=== PATIENT | male | born 1985 | race Caucasian/White ===

== ENCOUNTER 2016-05-17 23:22 | Inpatient (IN) | payer MEDICAID ==
[~2016-05-17] VITALS: Ht 177.8 cm; Wt 78.9 kg
[2016-05-18 00:20] LABS: Basophils # (auto) 0.1 uL; Basophils % (auto) 0.9 % (0.0-2.0); DEFINITIVE VIEW TRANSMISSION; Eosinophils # (auto) 0.3 uL; Eosinophils % (auto) 3.3 % (0.0-7.0); Hematocrit 25.1 % (41.0-53.0); Hemoglobin 8.1 g/dL (13.5-17.5); Lymphocytes # (auto) 1.7 uL; Lymphocytes % (auto) 16.5 % (10.0-50.0); Mean Corpuscular Hemoglobin 27.8 pg (28.0-32.0); Mean Corpuscular Hgb Conc. 32.4 g/dL (32.0-36.0); Mean Corpuscular Volume 85.9 fL (80.0-100.0); Mean Platelet Volume 7.7 fL (7.4-10.4); Monocytes # (auto) 1.5 uL; Monocytes % (auto) 14.2 % (0.0-12.0); Neutrophils # (auto) 6.6 uL; Neutrophils % (auto) 65.1 % (37.0-80.0); Platelet Count (auto) 424 10^3/uL (140-450); Red Cell Distribution Width 15.3 % (11.6-16.0); White Blood Cell 10.2 10^3/uL (4.4-10.8)
[2016-05-18 00:39] LABS: Albumin 2.4 g/dL (3.4-5.0); Calcium 7.3 mg/dL (8.5-10.1)
[2016-05-18] MEDS ORDERED: InsuLIN REG 1unit/0.01ml Soln (100units/ml) ONE ×2 (00:41→00:55)
[2016-05-18 00:43] LABS: Potassium 8.7 mmol/L (3.5-5.1)
[2016-05-18] MEDS ORDERED: CALCIUM GLUC 4.65 MEQ/10ML 4.65 MEQ in SODIUM CHL 0.9% 50 ML IV ONE ×3 (00:45→18:45)
[2016-05-18] MEDS ORDERED: SODIUM POLYSTYRENE SULF 15GM/60ML SUSP PR ONE (00:45)
[2016-05-18] MEDS ORDERED: SODIUM BICARBONATE 8.4% INJ 50ML SYRINGE IV ONE (00:45)
[2016-05-18] MEDS ORDERED: ALBUTEROL SULF 2.5 MG/0.5ML(0.5%) NEB SOLN HHN ONE (00:45)
[2016-05-18] MEDS ORDERED: InsuLIN REG 1unit/0.01ml Soln (100units/ml) IV ONE ×2 (00:45→18:45)
[2016-05-18] MEDS ORDERED: DEXTROSE (50%) 50ML SYRG IV ONE ×2 (00:45→18:30)
[2016-05-18 00:46] LABS: BUN/Creatinine Ratio 6.3; Bilirubin, Total 0.3 mg/dL (0.2-1.0)
[2016-05-18 00:46] LABS: INR 1.11 (0.9-1.15); Partial Thromboplastin Time 29.4 sec (22.64-33.71); Prothrombin Time 11.4 sec (9.37-12.3)
[2016-05-18 00:47] LABS: Temperature: 21.6 C (20.0-25.0)
[2016-05-18] MEDS ORDERED: ALBUTEROL SULF 2.5 MG/0.5ML(0.5%) NEB SOLN ONE (00:47)
[2016-05-18] MEDS ORDERED: CALCIUM GLUC 4.65 MEQ/10ML IV ONE (00:47)
[2016-05-18] MEDS ORDERED: SODIUM BICARBONATE 8.4 % INJ 50ML VIAL IV ONE ×4 (00:47→18:45)
[2016-05-18] MEDS ORDERED: DEXTROSE 50% SYRINGE 50 ML IV ONE (00:48)
[2016-05-18] MEDS ORDERED: SODIUM POLYSTYRENE SULF 15GM/60ML SUSP ONE (00:54)
[2016-05-18 01:44] LABS: Urine Bilirubin Negative (Negative); Urine Blood TRACE /uL (Negative); Urine Color Yellow (Yellow); Urine Glucose 2+ mg/dL (Normal); Urine Ketone Negative (Negative); Urine Nitrite Negative (Negative); Urine RBC <1 /hpf (0 - 3); Urine Urobilinogen Normal (Negative); Urine pH 7.5 (5.0-8.0)
[2016-05-18] MEDS ORDERED: ACETAMINOPHEN 325 MG TAB PO PRN (02:30)
[2016-05-18] MEDS ORDERED: NITROGLYCERIN 0.4 MG SL TAB SL PRN (02:30)
[2016-05-18] MEDS ORDERED: LORazepam 2MG/ML-1ML VIAL IV PRN ×2 (02:30→19:15)
[2016-05-18] MEDS ORDERED: ONDANSETRON HCL 4 MG/2 ML VIAL IV PRN (02:30)
[2016-05-18] MEDS ORDERED: DEXTROSE (50%) 50ML SYRG IV PRN (02:30)
[2016-05-18] MEDS ORDERED: METOPROLOL TARTRATE 50 MG TAB PO ONE (02:30)
[2016-05-18] MEDS ORDERED: HYDROcodone-ACET 5/325MG TAB PO PRN (02:30)
[2016-05-18] MEDS ORDERED: MORPHINE SULF INJ 2 MG/ML SYRINGE 1ML IV PRN (02:30)
[2016-05-18] MEDS ORDERED: ALBUTEROL SULF 2.5 MG/0.5ML(0.5%) NEB SOLN NEB ONE (03:00)
[2016-05-18 04:00] VITALS: BP 170/107
[2016-05-18 04:29] LABS: BUN/Creatinine Ratio 6.4; Calcium 7.8 mg/dL (8.5-10.1)
[2016-05-18 04:38] LABS: Potassium 6.4 mmol/L (3.5-5.1)
[2016-05-18] MEDS: hydrALAZINE HCL 25 MG TAB PO SCH ×3 (06:00→23:41)
[2016-05-18] MEDS: ACCU-CHEK COMFORT CURVE STRIP VI SCH ×4 (06:33→23:50)
[2016-05-18] MEDS: InsuLIN REG 1unit/0.01ml Soln (100units/ml) SC SCH ×4 (06:34→23:50)
[2016-05-18] MEDS ORDERED: HYDR-2651 PO (06:55)
[2016-05-18] MEDS ORDERED: NEPVITT PO (06:55)
[2016-05-18] MEDS ORDERED: NIFE60TA59 PO (06:55)
[2016-05-18] MEDS ORDERED: FERR325T PO (06:55)
[2016-05-18] MEDS ORDERED: LEVE500T22 PO (06:55)
[2016-05-18] MEDS ORDERED: METO25TA5 PO (06:55)
[2016-05-18] MEDS ORDERED: QUET100T46 PO (06:55)
[2016-05-18] MEDS ORDERED: FAMOTIDINE 20 MG TAB PO SCH (10:00)
[2016-05-18] MEDS ORDERED: LEVETIRACETAM 500 MG TAB PO SCH (10:00)
[2016-05-18] MEDS: ENOXAPARIN SOD 30 MG/0.3 ML SYRINGE SC SCH (10:00)
[2016-05-18] MEDS: B-COMPLEX W/ C & FOLIC ACID(NEPHROVITE TAB) PO SCH (10:12)
[2016-05-18] MEDS: FAMOTIDINE 20 MG TAB PO SCH (10:12)
[2016-05-18] MEDS: METOPROLOL TARTRATE 50 MG TAB PO SCH ×2 (10:13→22:27)
[2016-05-18] MEDS: NIFEdipine ER 30 MG TAB PO SCH ×2 (10:13→22:28)
[2016-05-18] MEDS ORDERED: EPOETIN ALFA 10,000 UNIT/1 ML VIAL IV ONE (15:45)
[2016-05-18] MEDS ORDERED: SODIUM CHL 0.9% 1000 ML BAG XX ONE (15:45)
[2016-05-18 16:56] LABS: BUN/Creatinine Ratio 6.5; Calcium 7.5 mg/dL (8.5-10.1)
[2016-05-18 17:00] LABS: Potassium 6.9 mmol/L (3.5-5.1)
[2016-05-18] MEDS ORDERED: SODIUM POLYSTYRENE SULF 15GM/60ML SUSP PO SCH (18:45)
[2016-05-18 20:00] VITALS: BP 155/92
[2016-05-18] MEDS: SODIUM POLYSTYRENE SULF 15GM/60ML SUSP PO SCH ×3 (20:07→23:53)
[2016-05-18] MEDS ORDERED: QUEtiapine FUMARATE 100 MG TAB PO SCH (22:00)
[2016-05-18] MEDS ORDERED: OXcarbazepine 300 MG TAB PO SCH (22:00)
[2016-05-18] MEDS: QUEtiapine FUMARATE 100 MG TAB PO SCH (23:40)
[2016-05-19] VITALS: BP 165/97
[2016-05-19] MEDS ORDERED: ALBUTEROL SULF 2.5 MG/0.5ML(0.5%) NEB SOLN NEB SCH (02:00)
[2016-05-19 03:54] VITALS: BP 143/89
[2016-05-19] MEDS: SODIUM POLYSTYRENE SULF 15GM/60ML SUSP PO SCH ×2 (04:00→06:45)
[2016-05-19] MEDS: InsuLIN REG 1unit/0.01ml Soln (100units/ml) SC SCH ×3 (06:00→17:39)
[2016-05-19] MEDS: ACCU-CHEK COMFORT CURVE STRIP VI SCH ×3 (06:00→17:39)
[2016-05-19] MEDS: hydrALAZINE HCL 25 MG TAB PO SCH ×3 (06:57→21:49)
[2016-05-19 08:00] VITALS: BP 145/90
[2016-05-19] MEDS: B-COMPLEX W/ C & FOLIC ACID(NEPHROVITE TAB) PO SCH (10:49)
[2016-05-19] MEDS: FAMOTIDINE 20 MG TAB PO SCH (10:49)
[2016-05-19] MEDS: METOPROLOL TARTRATE 50 MG TAB PO SCH ×2 (10:49→21:48)
[2016-05-19] MEDS: NIFEdipine ER 30 MG TAB PO SCH ×2 (10:51→21:48)
[2016-05-19] MEDS: ENOXAPARIN SOD 30 MG/0.3 ML SYRINGE SC SCH (10:53)
[2016-05-19 11:54] VITALS: BP 147/83
[2016-05-19 15:49] VITALS: BP 138/86
[2016-05-19 20:00] VITALS: BP 152/86
[2016-05-19 20:07] LABS: BUN/Creatinine Ratio 6.7; Calcium 7.5 mg/dL (8.5-10.1)
[2016-05-19 20:28] LABS: Potassium 7.4 mmol/L (3.5-5.1)
[2016-05-19] MEDS: QUEtiapine FUMARATE 100 MG TAB PO SCH (21:48)
[2016-05-20 02:00] VITALS: BP 150/80
[2016-05-20 04:00] VITALS: BP 137/80
[2016-05-20] MEDS: InsuLIN REG 1unit/0.01ml Soln (100units/ml) SC SCH ×4 (06:00→17:55)
[2016-05-20] MEDS: ACCU-CHEK COMFORT CURVE STRIP VI SCH ×4 (06:00→17:54)
[2016-05-20] MEDS: hydrALAZINE HCL 25 MG TAB PO SCH ×3 (07:09→22:56)
[2016-05-20 08:00] VITALS: BP 131/78
[2016-05-20] MEDS: ENOXAPARIN SOD 30 MG/0.3 ML SYRINGE SC SCH (10:00)
[2016-05-20] MEDS: METOPROLOL TARTRATE 50 MG TAB PO SCH ×2 (10:08→22:56)
[2016-05-20] MEDS: B-COMPLEX W/ C & FOLIC ACID(NEPHROVITE TAB) PO SCH (10:08)
[2016-05-20] MEDS: FAMOTIDINE 20 MG TAB PO SCH (10:08)
[2016-05-20] MEDS: NIFEdipine ER 30 MG TAB PO SCH ×2 (10:09→22:58)
[2016-05-20 12:00] VITALS: BP 155/82
[2016-05-20] MEDS ORDERED: SODIUM POLYSTYRENE SULF 15GM/60ML SUSP PO ONE (13:00)
[2016-05-20] MEDS ORDERED: ALBUTEROL SULF 2.5 MG/0.5ML(0.5%) NEB SOLN NEB ONE (13:00)
[2016-05-20 16:00] VITALS: BP 155/96
[2016-05-20 20:00] VITALS: BP 148/90
[2016-05-20] MEDS: QUEtiapine FUMARATE 100 MG TAB PO SCH (22:57)
[2016-05-21] VITALS: BP 125/70
[2016-05-21 04:00] VITALS: BP 131/78
[2016-05-21] MEDS: ACCU-CHEK COMFORT CURVE STRIP VI SCH ×4 (06:00→17:54)
[2016-05-21] MEDS: InsuLIN REG 1unit/0.01ml Soln (100units/ml) SC SCH ×4 (06:00→17:54)
[2016-05-21] MEDS: hydrALAZINE HCL 25 MG TAB PO SCH ×3 (06:13→22:49)
[2016-05-21 08:00] VITALS: BP 127/71
[2016-05-21] MEDS: ENOXAPARIN SOD 30 MG/0.3 ML SYRINGE SC SCH (10:00)
[2016-05-21] MEDS: METOPROLOL TARTRATE 50 MG TAB PO SCH ×2 (10:09→22:49)
[2016-05-21] MEDS: FAMOTIDINE 20 MG TAB PO SCH (10:09)
[2016-05-21] MEDS: B-COMPLEX W/ C & FOLIC ACID(NEPHROVITE TAB) PO SCH (10:09)
[2016-05-21] MEDS: NIFEdipine ER 30 MG TAB PO SCH ×2 (10:10→22:50)
[2016-05-21 12:00] VITALS: BP 138/79
[2016-05-21 12:15] LABS: Basophils # (auto) 0.1 uL; Eosinophils # (auto) 0.2 uL; Eosinophils % (auto) 2.4 % (0.0-7.0); Hematocrit 26.4 % (41.0-53.0); Hemoglobin 8.8 g/dL (13.5-17.5); Lymphocytes # (auto) 2.1 uL; Lymphocytes % (auto) 29.8 % (10.0-50.0); Mean Corpuscular Hemoglobin 28.2 pg (28.0-32.0); Mean Corpuscular Hgb Conc. 33.2 g/dL (32.0-36.0); Mean Corpuscular Volume 85.1 fL (80.0-100.0); Mean Platelet Volume 7.7 fL (7.4-10.4); Monocytes # (auto) 0.8 uL; Monocytes % (auto) 11.1 % (0.0-12.0); Neutrophils # (auto) 3.9 uL; Neutrophils % (auto) 55.7 % (37.0-80.0); Platelet Count (auto) 348 10^3/uL (140-450); Red Cell Distribution Width 16.4 % (11.6-16.0); White Blood Cell 7.1 10^3/uL (4.4-10.8)
[2016-05-21 12:24] LABS: Albumin 2.1 g/dL (3.4-5.0); Bilirubin, Total 0.3 mg/dL (0.2-1.0); Total Protein 6.7 g/dL (6.4-8.2)
[2016-05-21 12:32] LABS: Potassium 6.5 mmol/L (3.5-5.1)
[2016-05-21 12:59] LABS: BUN/Creatinine Ratio 6.8
[2016-05-21 16:00] VITALS: BP 116/85
[2016-05-21 19:47] VITALS: BP 142/74
[2016-05-21] MEDS: QUEtiapine FUMARATE 100 MG TAB PO SCH (22:48)
[2016-05-22] VITALS (7 sets, daily range): BP systolic 119–137; BP diastolic 65–79
[2016-05-22 05:02] LABS: Basophils # (auto) 0 uL; Basophils % (auto) 0.7 % (0.0-2.0); DEFINITIVE VIEW TRANSMISSION; Eosinophils # (auto) 0.1 uL; Eosinophils % (auto) 1.5 % (0.0-7.0); Hematocrit 24.9 % (41.0-53.0); Hemoglobin 8.2 g/dL (13.5-17.5); Lymphocytes # (auto) 1.6 uL; Lymphocytes % (auto) 27.2 % (10.0-50.0); Mean Corpuscular Hemoglobin 28.2 pg (28.0-32.0); Mean Corpuscular Volume 85.5 fL (80.0-100.0); Monocytes # (auto) 0.9 uL; Monocytes % (auto) 15.1 % (0.0-12.0); Neutrophils # (auto) 3.3 uL; Neutrophils % (auto) 55.5 % (37.0-80.0); Platelet Count (auto) 317 10^3/uL (140-450); White Blood Cell 5.9 10^3/uL (4.4-10.8)
[2016-05-22 05:17] LABS: Calcium 7.1 mg/dL (8.5-10.1); Potassium 5.2 mmol/L (3.5-5.1)
[2016-05-22 05:25] LABS: Bilirubin, Total 0.2 mg/dL (0.2-1.0); Total Protein 6.3 g/dL (6.4-8.2)
[2016-05-22] MEDS: InsuLIN REG 1unit/0.01ml Soln (100units/ml) SC SCH ×3 (06:00→12:00)
[2016-05-22] MEDS: ACCU-CHEK COMFORT CURVE STRIP VI SCH ×3 (06:00→12:00)
[2016-05-22] MEDS: hydrALAZINE HCL 25 MG TAB PO SCH ×3 (06:59→22:48)
[2016-05-22] MEDS: ENOXAPARIN SOD 30 MG/0.3 ML SYRINGE SC SCH (10:00)
[2016-05-22] MEDS: METOPROLOL TARTRATE 50 MG TAB PO SCH ×2 (10:06→22:48)
[2016-05-22] MEDS: FAMOTIDINE 20 MG TAB PO SCH (10:06)
[2016-05-22] MEDS: B-COMPLEX W/ C & FOLIC ACID(NEPHROVITE TAB) PO SCH (10:06)
[2016-05-22] MEDS: NIFEdipine ER 30 MG TAB PO SCH ×2 (10:07→22:48)
[2016-05-22] MEDS: BOOST PLUS 8 ounce PO SCH ×2 (12:00→18:00)
[2016-05-22] MEDS: QUEtiapine FUMARATE 100 MG TAB PO SCH (22:49)
[2016-05-23] VITALS: BP 125/69
[2016-05-23] MEDS: hydrALAZINE HCL 25 MG TAB PO SCH ×3 (06:00→21:58)
[2016-05-23 06:22] LABS: Basophils # (auto) 0.1 uL; Basophils % (auto) 0.8 % (0.0-2.0); DEFINITIVE VIEW TRANSMISSION; Eosinophils # (auto) 0.2 uL; Eosinophils % (auto) 3.4 % (0.0-7.0); Hematocrit 25.5 % (41.0-53.0); Hemoglobin 8.2 g/dL (13.5-17.5); Lymphocytes # (auto) 2.5 uL; Lymphocytes % (auto) 36.3 % (10.0-50.0); Mean Corpuscular Hemoglobin 27.7 pg (28.0-32.0); Mean Corpuscular Hgb Conc. 32.2 g/dL (32.0-36.0); Mean Corpuscular Volume 86.1 fL (80.0-100.0); Mean Platelet Volume 8.2 fL (7.4-10.4); Monocytes % (auto) 14.4 % (0.0-12.0); Neutrophils # (auto) 3.1 uL; Neutrophils % (auto) 45.1 % (37.0-80.0); Platelet Count (auto) 259 10^3/uL (140-450); Red Cell Distribution Width 15.5 % (11.6-16.0); White Blood Cell 6.8 10^3/uL (4.4-10.8)
[2016-05-23 07:49] LABS: Albumin 2.1 g/dL (3.4-5.0); BUN/Creatinine Ratio 6.2; Bilirubin, Total 0.4 mg/dL (0.2-1.0); Total Protein 6.5 g/dL (6.4-8.2)
[2016-05-23] MEDS: BOOST PLUS 8 ounce PO SCH ×3 (07:50→18:00)
[2016-05-23 08:00] VITALS: BP 144/84
[2016-05-23] MEDS: ENOXAPARIN SOD 30 MG/0.3 ML SYRINGE SC SCH (10:00)
[2016-05-23 12:00] VITALS: BP 143/85
[2016-05-23] MEDS ORDERED: EPOETIN ALFA 3,000 UNIT/1 ML VIAL IV ONE ×2 (13:30→14:00)
[2016-05-23] MEDS ORDERED: EPOETIN ALFA 2,000 UNIT/1 ML VIAL IV ONE (14:00)
[2016-05-23 16:00] VITALS: BP 146/107
[2016-05-23] MEDS: METOPROLOL TARTRATE 50 MG TAB PO SCH ×2 (17:35→21:58)
[2016-05-23] MEDS: NIFEdipine ER 30 MG TAB PO SCH ×2 (17:35→21:57)
[2016-05-23] MEDS: FAMOTIDINE 20 MG TAB PO SCH (18:30)
[2016-05-23] MEDS: B-COMPLEX W/ C & FOLIC ACID(NEPHROVITE TAB) PO SCH (18:49)
[2016-05-23 20:00] VITALS: BP 149/92
[2016-05-23 21:40] VITALS: BP 151/104
[2016-05-23] MEDS: QUEtiapine FUMARATE 100 MG TAB PO SCH (21:56)
[2016-05-24 05:00] VITALS: BP 158/86
[2016-05-24] MEDS: hydrALAZINE HCL 25 MG TAB PO SCH ×3 (06:21→22:07)
[2016-05-24 08:00] VITALS: BP 145/86
[2016-05-24] MEDS: BOOST PLUS 8 ounce PO SCH ×3 (08:00→18:02)
[2016-05-24] MEDS: B-COMPLEX W/ C & FOLIC ACID(NEPHROVITE TAB) PO SCH (09:46)
[2016-05-24] MEDS: METOPROLOL TARTRATE 50 MG TAB PO SCH ×2 (09:47→22:07)
[2016-05-24] MEDS: FAMOTIDINE 20 MG TAB PO SCH (09:47)
[2016-05-24] MEDS: NIFEdipine ER 30 MG TAB PO SCH ×2 (09:47→22:06)
[2016-05-24] MEDS: ENOXAPARIN SOD 30 MG/0.3 ML SYRINGE SC SCH (09:48)
[2016-05-24 11:39] LABS: Potassium 4.8 mmol/L (3.5-5.1)
[2016-05-24 11:40] LABS: BUN/Creatinine Ratio 5.1; Calcium 7.7 mg/dL (8.5-10.1)
[2016-05-24 12:30] VITALS: BP 158/93
[2016-05-24 17:00] VITALS: BP 150/88
[2016-05-24 21:49] VITALS: BP 155/90
[2016-05-24] MEDS: QUEtiapine FUMARATE 100 MG TAB PO SCH (22:06)
[2016-05-25 05:22] VITALS: BP 129/78
[2016-05-25] MEDS: hydrALAZINE HCL 25 MG TAB PO SCH ×3 (06:25→21:53)
[2016-05-25] MEDS: BOOST PLUS 8 ounce PO SCH ×3 (08:00→18:18)
[2016-05-25 08:22] VITALS: BP 118/84
[2016-05-25] MEDS: B-COMPLEX W/ C & FOLIC ACID(NEPHROVITE TAB) PO SCH (09:20)
[2016-05-25] MEDS: FAMOTIDINE 20 MG TAB PO SCH (09:20)
[2016-05-25] MEDS: ENOXAPARIN SOD 30 MG/0.3 ML SYRINGE SC SCH (09:21)
[2016-05-25] MEDS: METOPROLOL TARTRATE 50 MG TAB PO SCH ×2 (09:21→21:53)
[2016-05-25] MEDS: NIFEdipine ER 30 MG TAB PO SCH ×2 (09:21→21:52)
[2016-05-25] MEDS ORDERED: EPOETIN ALFA 10,000 UNIT/1 ML VIAL IV ONE (11:30)
[2016-05-25] MEDS ORDERED: HEPARIN SODIUM (PORCINE) 5000 UNITS/ML 1ML VIAL IV ONE (11:30)
[2016-05-25 11:58] VITALS: BP 118/79
[2016-05-25 15:58] VITALS: BP 129/86
[2016-05-25] MEDS: QUEtiapine FUMARATE 100 MG TAB PO SCH (21:53)
[2016-05-25 22:00] VITALS: BP 140/86
[2016-05-26 05:00] VITALS: BP 136/72
[2016-05-26] MEDS: hydrALAZINE HCL 25 MG TAB PO SCH ×3 (06:48→21:36)
[2016-05-26] MEDS: BOOST PLUS 8 ounce PO SCH ×3 (08:00→18:29)
[2016-05-26 09:00] VITALS: BP 127/88
[2016-05-26] MEDS: ENOXAPARIN SOD 30 MG/0.3 ML SYRINGE SC SCH (10:00)
[2016-05-26] MEDS: NIFEdipine ER 30 MG TAB PO SCH ×2 (10:18→21:35)
[2016-05-26] MEDS: METOPROLOL TARTRATE 50 MG TAB PO SCH ×2 (10:19→21:35)
[2016-05-26] MEDS: FAMOTIDINE 20 MG TAB PO SCH (10:19)
[2016-05-26] MEDS: B-COMPLEX W/ C & FOLIC ACID(NEPHROVITE TAB) PO SCH (10:20)
[2016-05-26 11:01] LABS: Hepatitis B Surface Antibody Non Reactive
[2016-05-26 13:00] VITALS: BP 136/92
[2016-05-26 17:00] VITALS: BP 135/92
[2016-05-26] MEDS: QUEtiapine FUMARATE 100 MG TAB PO SCH (21:33)
[2016-05-26 22:00] VITALS: BP 134/90
[2016-05-27 05:30] VITALS: BP 117/81
[2016-05-27] MEDS: hydrALAZINE HCL 25 MG TAB PO SCH ×3 (06:32→21:21)
[2016-05-27] MEDS: BOOST PLUS 8 ounce PO SCH ×3 (08:02→17:44)
[2016-05-27 09:00] VITALS: BP 136/79
[2016-05-27] MEDS ORDERED: SODIUM CHL 0.9% 1000 ML BAG XX ONE (10:00)
[2016-05-27] MEDS ORDERED: EPOETIN ALFA 10,000 UNIT/1 ML VIAL IV ONE (10:00)
[2016-05-27] MEDS: ENOXAPARIN SOD 30 MG/0.3 ML SYRINGE SC SCH ×2 (10:26→10:31)
[2016-05-27] MEDS: B-COMPLEX W/ C & FOLIC ACID(NEPHROVITE TAB) PO SCH (10:26)
[2016-05-27] MEDS: METOPROLOL TARTRATE 50 MG TAB PO SCH ×2 (10:27→21:23)
[2016-05-27] MEDS: NIFEdipine ER 30 MG TAB PO SCH ×2 (10:28→21:24)
[2016-05-27] MEDS: FAMOTIDINE 20 MG TAB PO SCH (10:28)
[2016-05-27 13:19] VITALS: BP 127/74
[2016-05-27 14:01] LABS: BUN/Creatinine Ratio 5.6; Calcium 7.7 mg/dL (8.5-10.1)
[2016-05-27 17:01] VITALS: BP 114/70
[2016-05-27] MEDS: QUEtiapine FUMARATE 100 MG TAB PO SCH (21:22)
[2016-05-27 21:36] VITALS: BP 125/77
[2016-05-28 04:36] VITALS: BP 125/70
[2016-05-28] MEDS: hydrALAZINE HCL 25 MG TAB PO SCH ×3 (06:11→22:08)
[2016-05-28 07:33] VITALS: BP 127/79
[2016-05-28] MEDS: B-COMPLEX W/ C & FOLIC ACID(NEPHROVITE TAB) PO SCH (09:26)
[2016-05-28] MEDS: METOPROLOL TARTRATE 50 MG TAB PO SCH ×2 (09:26→21:42)
[2016-05-28] MEDS: NIFEdipine ER 30 MG TAB PO SCH ×2 (09:27→21:42)
[2016-05-28] MEDS: BOOST PLUS 8 ounce PO SCH ×3 (09:28→17:03)
[2016-05-28] MEDS: ENOXAPARIN SOD 30 MG/0.3 ML SYRINGE SC SCH (09:29)
[2016-05-28] MEDS ORDERED: NITROGLYCERIN 50MG/250ML 250 ML IV ONE (09:31)
[2016-05-28] MEDS: FAMOTIDINE 20 MG TAB PO SCH (09:34)
[2016-05-28 11:36] VITALS: BP 130/88
[2016-05-28 16:04] VITALS: BP 141/84
[2016-05-28 21:41] VITALS: BP 148/96
[2016-05-28] MEDS: QUEtiapine FUMARATE 100 MG TAB PO SCH (21:42)
[2016-05-29 05:01] LABS: Basophils # (auto) 0.1 uL; Basophils % (auto) 0.8 % (0.0-2.0); Eosinophils # (auto) 0.3 uL; Eosinophils % (auto) 3.6 % (0.0-7.0); Lymphocytes # (auto) 3.4 uL; Lymphocytes % (auto) 37.2 % (10.0-50.0); Mean Corpuscular Hemoglobin 28.5 pg (28.0-32.0); Mean Corpuscular Hgb Conc. 33.2 g/dL (32.0-36.0); Mean Corpuscular Volume 85.9 fL (80.0-100.0); Mean Platelet Volume 8.6 fL (7.4-10.4); Monocytes # (auto) 1.1 uL; Monocytes % (auto) 12.2 % (0.0-12.0); Neutrophils # (auto) 4.3 uL; Neutrophils % (auto) 46.2 % (37.0-80.0); Platelet Count (auto) 315 10^3/uL (140-450); Red Cell Distribution Width 15.3 % (11.6-16.0); White Blood Cell 9.3 10^3/uL (4.4-10.8)
[2016-05-29 05:05] VITALS: BP 147/84
[2016-05-29 05:11] LABS: INR 1.06 (0.9-1.15); Prothrombin Time 11.5 sec (9.37-12.3)
[2016-05-29] MEDS: hydrALAZINE HCL 25 MG TAB PO SCH ×3 (05:46→21:53)
[2016-05-29 06:14] LABS: Albumin 2.2 g/dL (3.4-5.0); BUN/Creatinine Ratio 5.2; Bilirubin, Total 0.2 mg/dL (0.2-1.0); Calcium 7.8 mg/dL (8.5-10.1); Magnesium 2.4 mg/dL (1.6-2.6); Total Protein 6.4 g/dL (6.4-8.2)
[2016-05-29] MEDS: BOOST PLUS 8 ounce PO SCH ×3 (07:18→17:10)
[2016-05-29 09:00] VITALS: BP 147/86
[2016-05-29] MEDS: B-COMPLEX W/ C & FOLIC ACID(NEPHROVITE TAB) PO SCH (09:19)
[2016-05-29] MEDS: NIFEdipine ER 30 MG TAB PO SCH ×2 (09:19→22:13)
[2016-05-29] MEDS: FAMOTIDINE 20 MG TAB PO SCH (09:20)
[2016-05-29] MEDS: METOPROLOL TARTRATE 50 MG TAB PO SCH ×2 (09:20→21:54)
[2016-05-29] MEDS: ENOXAPARIN SOD 30 MG/0.3 ML SYRINGE SC SCH (09:20)
[2016-05-29 13:00] VITALS: BP 146/83
[2016-05-29 17:00] VITALS: BP 154/83
[2016-05-29 21:30] VITALS: BP 151/86
[2016-05-29] MEDS: QUEtiapine FUMARATE 100 MG TAB PO SCH (22:14)
[2016-05-30 05:00] VITALS: BP 151/85
[2016-05-30 05:50] LABS: Basophils # (auto) 0.1 uL; Basophils % (auto) 0.7 % (0.0-2.0); DEFINITIVE VIEW TRANSMISSION; Eosinophils # (auto) 0.3 uL; Eosinophils % (auto) 3.1 % (0.0-7.0); Hematocrit 26.3 % (41.0-53.0); Hemoglobin 8.5 g/dL (13.5-17.5); Lymphocytes # (auto) 2.9 uL; Lymphocytes % (auto) 29.3 % (10.0-50.0); Mean Corpuscular Hgb Conc. 32.3 g/dL (32.0-36.0); Mean Corpuscular Volume 86.8 fL (80.0-100.0); Mean Platelet Volume 8.8 fL (7.4-10.4); Monocytes # (auto) 1.5 uL; Monocytes % (auto) 14.5 % (0.0-12.0); Neutrophils # (auto) 5.3 uL; Neutrophils % (auto) 52.4 % (37.0-80.0); Platelet Count (auto) 325 10^3/uL (140-450); White Blood Cell 10.1 10^3/uL (4.4-10.8)
[2016-05-30] MEDS: hydrALAZINE HCL 25 MG TAB PO SCH ×3 (05:58→22:14)
[2016-05-30 06:04] LABS: INR 1.06 (0.9-1.15); Prothrombin Time 11.4 sec (9.37-12.3)
[2016-05-30 06:18] LABS: BUN/Creatinine Ratio 5.6; Calcium 8.2 mg/dL (8.5-10.1); Magnesium 2.6 mg/dL (1.6-2.6)
[2016-05-30 06:22] LABS: Potassium 5.8 mmol/L (3.5-5.1)
[2016-05-30 09:00] VITALS: BP 140/82
[2016-05-30] MEDS: ENOXAPARIN SOD 30 MG/0.3 ML SYRINGE SC SCH (10:00)
[2016-05-30] MEDS: B-COMPLEX W/ C & FOLIC ACID(NEPHROVITE TAB) PO SCH (11:15)
[2016-05-30] MEDS: FAMOTIDINE 20 MG TAB PO SCH (11:15)
[2016-05-30] MEDS: METOPROLOL TARTRATE 50 MG TAB PO SCH ×2 (11:16→22:14)
[2016-05-30] MEDS: NIFEdipine ER 30 MG TAB PO SCH ×2 (11:17→22:15)
[2016-05-30] MEDS: BOOST PLUS 8 ounce PO SCH ×3 (11:21→19:39)
[2016-05-30] MEDS ORDERED: SODIUM CHL 0.9% 1000 ML BAG XX ONE ×2 (12:00→13:15)
[2016-05-30] MEDS ORDERED: EPOETIN ALFA 10,000 UNIT/1 ML VIAL IV ONE ×2 (12:00→13:15)
[2016-05-30 13:00] VITALS: BP 124/90
[2016-05-30 13:06] VITALS: BP 158/78
[2016-05-30 17:00] VITALS: BP 142/84
[2016-05-30 22:00] VITALS: BP 137/77
[2016-05-30] MEDS: QUEtiapine FUMARATE 100 MG TAB PO SCH (22:15)
[2016-05-31 05:00] VITALS: BP 136/66
[2016-05-31] MEDS: hydrALAZINE HCL 25 MG TAB PO SCH ×3 (05:39→21:40)
[2016-05-31 07:23] VITALS: BP 127/72
[2016-05-31] MEDS: ENOXAPARIN SOD 30 MG/0.3 ML SYRINGE SC SCH (10:00)
[2016-05-31] MEDS: B-COMPLEX W/ C & FOLIC ACID(NEPHROVITE TAB) PO SCH (10:58)
[2016-05-31] MEDS: FAMOTIDINE 20 MG TAB PO SCH (10:58)
[2016-05-31] MEDS: NIFEdipine ER 30 MG TAB PO SCH ×2 (10:59→21:41)
[2016-05-31] MEDS: METOPROLOL TARTRATE 50 MG TAB PO SCH ×2 (11:00→21:40)
[2016-05-31 11:50] VITALS: BP 138/91
[2016-05-31] MEDS ORDERED: SODIUM CHL 0.9% 1000 ML BAG XX ONE (15:45)
[2016-05-31] MEDS ORDERED: EPOETIN ALFA 10,000 UNIT/1 ML VIAL IV ONE (15:45)
[2016-05-31 16:34] VITALS: BP 130/76
[2016-05-31] MEDS: PRO-STAT 64 30ML PO SCH (18:01)
[2016-05-31] MEDS: Novasource Renal 8 Ounces PO SCH (18:01)
[2016-05-31] MEDS: QUEtiapine FUMARATE 100 MG TAB PO SCH (21:41)
[2016-05-31 21:47] VITALS: BP 154/103
[2016-06-01] VITALS (7 sets, daily range): BP systolic 121–161; BP diastolic 58–118
[2016-06-01] MEDS: hydrALAZINE HCL 25 MG TAB PO SCH ×3 (05:44→21:54)
[2016-06-01] MEDS: PRO-STAT 64 30ML PO SCH ×2 (08:00→18:00)
[2016-06-01] MEDS: Novasource Renal 8 Ounces PO SCH ×2 (08:00→18:00)
[2016-06-01] MEDS: FAMOTIDINE 20 MG TAB PO SCH (08:54)
[2016-06-01] MEDS: ENOXAPARIN SOD 30 MG/0.3 ML SYRINGE SC SCH (08:55)
[2016-06-01] MEDS: B-COMPLEX W/ C & FOLIC ACID(NEPHROVITE TAB) PO SCH (17:53)
[2016-06-01] MEDS: METOPROLOL TARTRATE 50 MG TAB PO SCH ×2 (17:53→21:55)
[2016-06-01] MEDS: NIFEdipine ER 30 MG TAB PO SCH ×2 (17:53→21:55)
[2016-06-01] MEDS: QUEtiapine FUMARATE 100 MG TAB PO SCH (21:55)
[2016-06-02 05:00] VITALS: BP 137/90
[2016-06-02 05:57] LABS: DEFINITIVE VIEW TRANSMISSION; Hematocrit 27.3 % (41.0-53.0); Hemoglobin 8.7 g/dL (13.5-17.5); Mean Corpuscular Hemoglobin 27.9 pg (28.0-32.0); Mean Corpuscular Hgb Conc. 31.8 g/dL (32.0-36.0); Mean Corpuscular Volume 87.6 fL (80.0-100.0); Platelet Count (auto) 320 10^3/uL (140-450); Red Cell Distribution Width 16.9 % (11.6-16.0); SUSPECT VIEW TRANSMISSION; White Blood Cell 9.7 10^3/uL (4.4-10.8)
[2016-06-02] MEDS: hydrALAZINE HCL 25 MG TAB PO SCH ×3 (06:10→22:15)
[2016-06-02 06:28] LABS: Promyelocytes % 0; Reactive Lymphocytes 0
[2016-06-02 06:54] LABS: BUN/Creatinine Ratio 4.9; Calcium 7.8 mg/dL (8.5-10.1); Potassium 4.8 mmol/L (3.5-5.1)
[2016-06-02] MEDS: Novasource Renal 8 Ounces PO SCH ×2 (08:00→18:00)
[2016-06-02] MEDS: PRO-STAT 64 30ML PO SCH ×2 (08:00→18:00)
[2016-06-02] MEDS: B-COMPLEX W/ C & FOLIC ACID(NEPHROVITE TAB) PO SCH (09:13)
[2016-06-02] MEDS: NIFEdipine ER 30 MG TAB PO SCH ×2 (09:13→22:16)
[2016-06-02 09:14] VITALS: BP 145/51
[2016-06-02] MEDS: METOPROLOL TARTRATE 50 MG TAB PO SCH ×2 (09:14→22:16)
[2016-06-02] MEDS: FAMOTIDINE 20 MG TAB PO SCH (09:14)
[2016-06-02] MEDS: ENOXAPARIN SOD 30 MG/0.3 ML SYRINGE SC SCH (09:16)
[2016-06-02 13:03] LABS: Metamyelocytes % 1; Myelocytes % 2
[2016-06-02 13:04] LABS: Platelet Estimate Adequate
[2016-06-02 13:06] LABS: Ovalocytes FEW
[2016-06-02] MEDS ORDERED: EPOETIN ALFA 10,000 UNIT/1 ML VIAL IV ONE (13:45)
[2016-06-02] MEDS ORDERED: SODIUM CHL 0.9% 1000 ML BAG XX ONE (13:45)
[2016-06-02 15:15] VITALS: BP_SYST 149; BP_DIAS 58; BP_DIAS 78
[2016-06-02 17:36] VITALS: BP 150/82
[2016-06-02 21:31] VITALS: BP 143/103
[2016-06-02] MEDS: QUEtiapine FUMARATE 100 MG TAB PO SCH (22:17)
[2016-06-03 05:23] VITALS: BP 128/72
[2016-06-03] MEDS: hydrALAZINE HCL 25 MG TAB PO SCH ×2 (05:47→13:52)
[2016-06-03 08:00] VITALS: BP 128/72
[2016-06-03 09:00] VITALS: BP 130/70
[2016-06-03] MEDS: Novasource Renal 8 Ounces PO SCH ×2 (09:52→18:10)
[2016-06-03] MEDS: B-COMPLEX W/ C & FOLIC ACID(NEPHROVITE TAB) PO SCH (09:52)
[2016-06-03] MEDS: FAMOTIDINE 20 MG TAB PO SCH (09:52)
[2016-06-03] MEDS: PRO-STAT 64 30ML PO SCH ×2 (09:52→18:10)
[2016-06-03] MEDS: METOPROLOL TARTRATE 50 MG TAB PO SCH (09:56)
[2016-06-03] MEDS: NIFEdipine ER 30 MG TAB PO SCH (09:56)
[2016-06-03 13:00] VITALS: BP 126/80
[2016-06-03 17:00] VITALS: BP 143/93
[2016-06-03] MEDS ORDERED: DIVA250T6 PO (17:43)
== END 2016-06-03 18:14 | disposition home or self-care (01) | DRG 425 ==
LOC: ER 23:25 → TELE 23:26 → DOU IN ICU 05-18 03:45 → TELE-CENTR 05-23 21:28 → CENTRAL 05-25 23:30
PROVIDERS: ADMIT Nurse Practitioner; ATTEND Internal Medicine Pulmonary Disease
PROC: 5A1D60Z (ICD-10-PCS; principal; 2016-05-21)
DX: E87.5 Hyperkalemia (principal); I50.31 Acute diastolic (congestive) heart failure; N18.6 End stage renal disease; E11.21 Type 2 diabetes mellitus with diabetic nephropathy; B19.10 Unspecified viral hepatitis B without hepatic coma; I13.2 Hypertensive heart and chronic kidney disease with heart failure and with stage 5 chronic kidney disease, or end stage renal disease; E11.22 Type 2 diabetes mellitus with diabetic chronic kidney disease; D63.1 Anemia in chronic kidney disease; F31.9 Bipolar disorder, unspecified; G40.409 Other generalized epilepsy and epileptic syndromes, not intractable, without status epilepticus; F20.9 Schizophrenia, unspecified; B15.9 Hepatitis A without hepatic coma; Z91.14 Patient's other noncompliance with medication regimen; Z91.15 Patient's noncompliance with renal dialysis; Z99.2 Dependence on renal dialysis; Z79.899 Other long term (current) drug therapy
CPT/HCPCS: 36415; 71010; 80048; 80053; 81001; 82962; 83605; 83735; 83880; 85007; 85025; 85027; 85610; 85730; 86704; 86706; 86708; 86803; 87040; 87340; 90935; 93005; 93306; 94640; 96365; 96375; 96376; J0885; J1642; J1815; Q4081

== ENCOUNTER 2016-06-27 00:21 | Inpatient (IN) | payer MEDICAID ==
[~2016-06-27] VITALS: Ht 177.8 cm; Wt 79.3 kg
[~2016-06-27 00:21] MED LIST: DIVA250T6 PO; FERR325T PO; HYDR-2651 PO; METO25TA5 PO; NEPVITT PO; NIFE60TA59 PO; QUET100T46 PO
[2016-06-27] MEDS ORDERED: IBUPROFEN 600 MG TAB PO ONE (00:45)
[2016-06-27 01:12] LABS: Basophils # (auto) 0 uL; Basophils % (auto) 0.2 % (0.0-2.0); DEFINITIVE VIEW TRANSMISSION; Eosinophils # (auto) 0 uL; Hematocrit 24.8 % (41.0-53.0); Hemoglobin 8.1 g/dL (13.5-17.5); Lymphocytes # (auto) 1.1 uL; Lymphocytes % (auto) 5.8 % (10.0-50.0); Mean Corpuscular Hemoglobin 28.2 pg (28.0-32.0); Mean Corpuscular Hgb Conc. 32.7 g/dL (32.0-36.0); Mean Corpuscular Volume 86.2 fL (80.0-100.0); Mean Platelet Volume 7.9 fL (7.4-10.4); Monocytes # (auto) 1.1 uL; Monocytes % (auto) 5.5 % (0.0-12.0); Neutrophils # (auto) 16.9 uL; Neutrophils % (auto) 88.5 % (37.0-80.0); Platelet Count (auto) 122 10^3/uL (140-450); Red Cell Distribution Width 17.9 % (11.6-16.0); White Blood Cell 19.1 10^3/uL (4.4-10.8)
[2016-06-27] MEDS ORDERED: ENALAPRILAT 1.25 MG/ML-1ML VIAL IV ONE (01:15)
[2016-06-27] MEDS ORDERED: NICARDIPINE 25MG/250ML BAG KIT 250 ML IV SCH (01:15)
[2016-06-27 01:19] LABS: Partial Thromboplastin Time 29.6 sec (22.64-33.71)
[2016-06-27 01:24] LABS: Calcium 8.7 mg/dL (8.5-10.1)
[2016-06-27 01:26] LABS: INR 1.24 (0.9-1.15); Prothrombin Time 13.4 sec (9.37-12.3)
[2016-06-27 01:32] LABS: Bilirubin, Total 0.7 mg/dL (0.2-1.0); Total Protein 7.9 g/dL (6.4-8.2)
[2016-06-27 01:52] LABS: Potassium 5.8 mmol/L (3.5-5.1)
[2016-06-27] MEDS ORDERED: SODIUM POLYSTYRENE SULF 15GM/60ML SUSP PO ONE (02:00)
[2016-06-27] MEDS ORDERED: DEXTROSE (50%) 50ML SYRG IV ONE ×2 (02:00→04:00)
[2016-06-27] MEDS ORDERED: InsuLIN REG 1unit/0.01ml Soln (100units/ml) IV ONE (02:00)
[2016-06-27 02:04] LABS: B-Type Natriuretic Peptide > 5000 pg/mL (0-100); Temperature: 21.4 C (20.0-25.0)
[2016-06-27 05:54] LABS: Calcium 8.9 mg/dL (8.5-10.1); Potassium 5.1 mmol/L (3.5-5.1)
[2016-06-27 06:01] LABS: BUN/Creatinine Ratio 4.2
[2016-06-27] MEDS ORDERED: PIPERACILLIN-TAZOB 3.375GM 100 ML IV ONE ×2 (08:45→08:51)
[2016-06-27] MEDS ORDERED: metroNIDAZOLE 500MG/100ML 100 ML IV ONE ×2 (08:45→08:51)
[2016-06-27] MEDS ORDERED: FUROSEMIDE 20 MG/2 ML VIAL IV ONE (08:45)
[2016-06-27] MEDS ORDERED: CALCIUM GLUC 4.65 MEQ/10ML 4.65 MEQ in SODIUM CHL 0.9% 50 ML IV ONE (08:45)
[2016-06-27] MEDS ORDERED: FUROSEMIDE INJECTION 10 ML ONE (08:51)
[2016-06-27] MEDS ORDERED: CALCIUM GLUC 4.65 MEQ/10ML IV ONE (08:52)
[2016-06-27] MEDS ORDERED: VANCOMYCIN PER PHARMACY 0 MG IV SCH (09:30)
[2016-06-27] MEDS ORDERED: cefTRIAXone 1GM/50ML D5W 50 ML IV ONE ×2 (09:30→12:11)
[2016-06-27] MEDS ORDERED: LORazepam 2MG/ML-1ML VIAL IV PRN (09:30)
[2016-06-27] MEDS ORDERED: DEXTROSE (50%) 50ML SYRG IV PRN (09:30)
[2016-06-27] MEDS ORDERED: MORPHINE SULF INJ 2 MG/ML SYRINGE 1ML IV PRN ×2 (09:45)
[2016-06-27] MEDS ORDERED: ACETAMINOPHEN 325 MG TAB PO PRN (09:45)
[2016-06-27] MEDS ORDERED: ONDANSETRON HCL 4 MG/2 ML VIAL IV PRN (09:45)
[2016-06-27] MEDS ORDERED: NITROGLYCERIN 0.4 MG SL TAB SL PRN ×2 (09:45)
[2016-06-27] MEDS ORDERED: LORazepam 0.5 MG TAB PO PRN (09:45)
[2016-06-27] MEDS ORDERED: ALUM & MAG HYDROX-SIMETH LIQ(MAALOX) 30 ML PO PRN (09:45)
[2016-06-27] MEDS ORDERED: ZOLPIDEM TARTRATE 5 MG TAB PO PRN (09:45)
[2016-06-27 10:00] LABS: Urine Bilirubin Negative (Negative); Urine Blood TRACE /uL (Negative); Urine Color Yellow (Yellow); Urine Ketone Negative (Negative); Urine Nitrite Negative (Negative); Urine Urobilinogen Normal (Negative); Urine pH 8.5 (5.0-8.0)
[2016-06-27] MEDS ORDERED: METOPROLOL TARTRATE 50 MG TAB PO SCH (10:00)
[2016-06-27 10:02] LABS: Urine Glucose 2+ mg/dL (Normal)
[2016-06-27 12:00] VITALS: BP 140/83
[2016-06-27] MEDS ORDERED: FERROUS SULFATE 325 MG TAB PO ONE (12:10)
[2016-06-27] MEDS ORDERED: METOPROLOL TARTRATE 1MG/1ML-5ML VIAL IV ONE ×2 (12:10→12:28)
[2016-06-27] MEDS ORDERED: NIFEdipine ER 30 MG TAB PO ONE (12:11)
[2016-06-27] MEDS ORDERED: B-COMPLEX W/ C & FOLIC ACID(NEPHROVITE TAB) ONE (12:11)
[2016-06-27] MEDS ORDERED: ACETAMINOPHEN 325 MG TAB PO ONE (12:11)
[2016-06-27] MEDS ORDERED: hydrALAZINE HCL 25 MG TAB ONE (12:11)
[2016-06-27] MEDS ORDERED: ENALAPRIL MALEATE 2.5 MG TAB ONE (12:11)
[2016-06-27] MEDS: ASPirin 81 mg TAB PO SCH (12:17)
[2016-06-27] MEDS: hydrALAZINE HCL 25 MG TAB PO SCH ×2 (12:17→22:40)
[2016-06-27] MEDS: NIFEdipine ER 30 MG TAB PO SCH ×2 (12:17→22:41)
[2016-06-27] MEDS: B-COMPLEX W/ C & FOLIC ACID(NEPHROVITE TAB) PO SCH (12:17)
[2016-06-27] MEDS: FERROUS SULFATE 325 MG TAB PO SCH (12:17)
[2016-06-27] MEDS: ACCU-CHEK COMFORT CURVE STRIP VI SCH ×3 (12:17→22:48)
[2016-06-27] MEDS: ENALAPRIL MALEATE 2.5 MG TAB PO SCH ×2 (12:17→22:40)
[2016-06-27] MEDS: InsuLIN REG 1unit/0.01ml Soln (100units/ml) SC SCH ×3 (12:20→22:00)
[2016-06-27] MEDS ORDERED: METOPROLOL TARTRATE 1MG/1ML-5ML VIAL IV SCH (12:30)
[2016-06-27] MEDS ORDERED: SODIUM CHL 0.9% 1000 ML BAG XX ONE (13:30)
[2016-06-27] MEDS: SODIUM CHLOR 0.9% PF (SALINE LOCK) 10ML VIAL IV SCH ×2 (14:12→22:39)
[2016-06-27] MEDS: METOPROLOL SUCCINATE XL 50 MG TAB PO SCH (14:30)
[2016-06-27] MEDS: DOCUSATE SOD 100 MG CAP PO SCH (15:05)
[2016-06-27] MEDS: cloNIDine HCL 0.1 MG TAB PO PRN (15:12)
[2016-06-27 15:41] VITALS: BP 149/88
[2016-06-27 16:00] VITALS: BP 143/89
[2016-06-27] MEDS ORDERED: VANCOMYCIN 1GM/250ML D5W 250 ML IV ONE (16:00)
[2016-06-27 16:40] VITALS: BP 147/75
[2016-06-27] MEDS: CLOPIDOGREL BISULFATE 75 MG TAB PO SCH (16:54)
[2016-06-27 18:08] LABS: Lactic Acid w/Reflex 2.2 mmol/L (0.4-2.0)
[2016-06-27 18:22] LABS: REFLEX LACTIC ACID YES OR NO YES
[2016-06-27 20:00] VITALS: BP 122/59
[2016-06-27] MEDS: ATORVASTATIN 20 MG TAB PO SCH (22:39)
[2016-06-27] MEDS: QUEtiapine FUMARATE 100 MG TAB PO SCH (22:39)
[2016-06-28] VITALS: BP 124/50
[2016-06-28 04:00] VITALS: BP 101/51
[2016-06-28] MEDS: SODIUM CHLOR 0.9% PF (SALINE LOCK) 10ML VIAL IV SCH ×3 (05:10→22:05)
[2016-06-28] MEDS: hydrALAZINE HCL 25 MG TAB PO SCH ×3 (05:11→22:00)
[2016-06-28] MEDS: ACCU-CHEK COMFORT CURVE STRIP VI SCH ×4 (06:16→22:08)
[2016-06-28] MEDS: InsuLIN REG 1unit/0.01ml Soln (100units/ml) SC SCH ×4 (06:17→22:00)
[2016-06-28 06:53] LABS: Basophils # (auto) 0 uL; Basophils % (auto) 0.1 % (0.0-2.0); DEFINITIVE VIEW TRANSMISSION; Eosinophils # (auto) 0.1 uL; Eosinophils % (auto) 0.5 % (0.0-7.0); Hematocrit 20.4 % (41.0-53.0); Lymphocytes # (auto) 1.4 uL; Mean Corpuscular Hemoglobin 28.2 pg (28.0-32.0); Mean Corpuscular Hgb Conc. 32.7 g/dL (32.0-36.0); Mean Corpuscular Volume 86.1 fL (80.0-100.0); Monocytes # (auto) 1.3 uL; Monocytes % (auto) 9.5 % (0.0-12.0); Neutrophils # (auto) 10.4 uL; Neutrophils % (auto) 78.9 % (37.0-80.0); Platelet Count (auto) 79 10^3/uL (140-450); Red Cell Distribution Width 18.2 % (11.6-16.0); White Blood Cell 13.1 10^3/uL (4.4-10.8)
[2016-06-28 07:34] LABS: Albumin 2.2 g/dL (3.4-5.0); BUN/Creatinine Ratio 4.2; Bilirubin, Total 0.6 mg/dL (0.2-1.0); Calcium 8.2 mg/dL (8.5-10.1); Magnesium 2.3 mg/dL (1.6-2.6); Potassium 4.3 mmol/L (3.5-5.1); Total Protein 6.6 g/dL (6.4-8.2)
[2016-06-28 07:52] LABS: Hemoglobin 6.7 g/dL (13.5-17.5)
[2016-06-28 08:00] VITALS: BP 105/48
[2016-06-28] MEDS ORDERED: ADENOSINE 61 MG in GIVE UN-DILUTED 0 ML IV STA (08:02)
[2016-06-28] MEDS ORDERED: cefTRIAXone 1GM/50ML D5W 50 ML IV SCH (09:00)
[2016-06-28] MEDS: ASPirin 81 mg TAB PO SCH (09:13)
[2016-06-28] MEDS: CLOPIDOGREL BISULFATE 75 MG TAB PO SCH (09:13)
[2016-06-28] MEDS: B-COMPLEX W/ C & FOLIC ACID(NEPHROVITE TAB) PO SCH (09:13)
[2016-06-28] MEDS: FERROUS SULFATE 325 MG TAB PO SCH (09:13)
[2016-06-28 11:20] LABS: Platelet Estimate Adequate; Tear Drop Cells FEW
[2016-06-28 11:21] LABS: Ovalocytes FEW
[2016-06-28 12:00] VITALS: BP 102/62
[2016-06-28] MEDS: DOCUSATE SOD 100 MG CAP PO SCH (12:48)
[2016-06-28] MEDS: METOPROLOL SUCCINATE XL 50 MG TAB PO SCH (12:49)
[2016-06-28] MEDS: NIFEdipine ER 30 MG TAB PO SCH ×2 (12:50→22:00)
[2016-06-28] MEDS: ENALAPRIL MALEATE 2.5 MG TAB PO SCH ×2 (12:51→22:00)
[2016-06-28] MEDS ORDERED: VANCOMYCIN PER PHARMACY 0 MG IV SCH (14:15)
[2016-06-28 16:00] VITALS: BP 109/55
[2016-06-28] MEDS ORDERED: EPOETIN ALFA 10,000 UNIT/1 ML VIAL IV ONE (16:30)
[2016-06-28] MEDS ORDERED: SODIUM CHL 0.9% 1000 ML BAG XX ONE (16:30)
[2016-06-28 20:00] VITALS: BP 118/85
[2016-06-28] MEDS: QUEtiapine FUMARATE 100 MG TAB PO SCH (22:05)
[2016-06-28] MEDS: ATORVASTATIN 20 MG TAB PO SCH (22:05)
[2016-06-29] VITALS (9 sets, daily range): BP systolic 94–143; BP diastolic 40–96
[2016-06-29] MEDS: SODIUM CHLOR 0.9% PF (SALINE LOCK) 10ML VIAL IV SCH ×3 (05:54→22:13)
[2016-06-29] MEDS: hydrALAZINE HCL 25 MG TAB PO SCH ×3 (06:00→22:24)
[2016-06-29] MEDS: ACCU-CHEK COMFORT CURVE STRIP VI SCH ×4 (06:49→22:29)
[2016-06-29] MEDS: InsuLIN REG 1unit/0.01ml Soln (100units/ml) SC SCH ×4 (06:49→22:00)
[2016-06-29] MEDS: METOPROLOL SUCCINATE XL 50 MG TAB PO SCH (10:00)
[2016-06-29] MEDS: NIFEdipine ER 30 MG TAB PO SCH ×2 (10:00→22:13)
[2016-06-29] MEDS: DOCUSATE SOD 100 MG CAP PO SCH (10:00)
[2016-06-29] MEDS: ASPirin 81 mg TAB PO SCH (15:19)
[2016-06-29] MEDS: B-COMPLEX W/ C & FOLIC ACID(NEPHROVITE TAB) PO SCH (15:19)
[2016-06-29] MEDS: CLOPIDOGREL BISULFATE 75 MG TAB PO SCH (15:19)
[2016-06-29] MEDS: FERROUS SULFATE 325 MG TAB PO SCH (15:19)
[2016-06-29] MEDS: ENALAPRIL MALEATE 2.5 MG TAB PO SCH ×2 (15:20→22:00)
[2016-06-29] MEDS ORDERED: VANCOMYCIN 1GM/250ML D5W 250 ML IV ONE (16:00)
[2016-06-29] MEDS ORDERED: ceFAZolin 1GM 2 GM in D5W 5% 100 ML IV ONE (18:00)
[2016-06-29] MEDS: QUEtiapine FUMARATE 100 MG TAB PO SCH (22:12)
[2016-06-29] MEDS: ATORVASTATIN 20 MG TAB PO SCH (22:12)
[2016-06-30] VITALS: BP 141/88
[2016-06-30 03:58] VITALS: BP 142/89
[2016-06-30] MEDS: SODIUM CHLOR 0.9% PF (SALINE LOCK) 10ML VIAL IV SCH ×3 (05:47→22:29)
[2016-06-30] MEDS: hydrALAZINE HCL 25 MG TAB PO SCH ×3 (06:20→22:27)
[2016-06-30] MEDS: ACCU-CHEK COMFORT CURVE STRIP VI SCH ×4 (06:20→22:24)
[2016-06-30] MEDS: InsuLIN REG 1unit/0.01ml Soln (100units/ml) SC SCH ×4 (06:20→22:00)
[2016-06-30 06:46] LABS: Hematocrit 24.6 % (41.0-53.0); Hemoglobin 7.9 g/dL (13.5-17.5)
[2016-06-30 07:53] VITALS: BP 142/85
[2016-06-30] MEDS: DOCUSATE SOD 100 MG CAP PO SCH (08:55)
[2016-06-30] MEDS: ceFAZolin 1GM/50ML D5W 50 ML IV SCH (08:55)
[2016-06-30] MEDS: NIFEdipine ER 30 MG TAB PO SCH ×2 (08:56→22:27)
[2016-06-30] MEDS: ENALAPRIL MALEATE 2.5 MG TAB PO SCH ×2 (08:56→22:00)
[2016-06-30] MEDS: FERROUS SULFATE 325 MG TAB PO SCH (08:56)
[2016-06-30] MEDS: CLOPIDOGREL BISULFATE 75 MG TAB PO SCH (08:56)
[2016-06-30] MEDS: ASPirin 81 mg TAB PO SCH (08:57)
[2016-06-30] MEDS: METOPROLOL SUCCINATE XL 50 MG TAB PO SCH (08:57)
[2016-06-30] MEDS: B-COMPLEX W/ C & FOLIC ACID(NEPHROVITE TAB) PO SCH (08:57)
[2016-06-30 12:00] VITALS: BP 141/81
[2016-06-30 16:00] VITALS: BP 145/97
[2016-06-30 19:55] VITALS: BP 146/93
[2016-06-30 21:54] LABS: Albumin 2.4 g/dL (3.4-5.0); Calcium 8.3 mg/dL (8.5-10.1)
[2016-06-30 22:02] LABS: BUN/Creatinine Ratio 4.6; Bilirubin, Total 0.2 mg/dL (0.2-1.0); Total Protein 7.1 g/dL (6.4-8.2)
[2016-06-30 22:24] LABS: Potassium 5.8 mmol/L (3.5-5.1)
[2016-06-30] MEDS: QUEtiapine FUMARATE 100 MG TAB PO SCH (22:26)
[2016-06-30] MEDS: ATORVASTATIN 20 MG TAB PO SCH (22:26)
[2016-07-01] VITALS: BP 136/85
[2016-07-01] MEDS: ceFAZolin 1GM/50ML D5W 50 ML IV SCH ×2 (03:15→22:00)
[2016-07-01 03:58] VITALS: BP 151/87
[2016-07-01] MEDS: hydrALAZINE HCL 25 MG TAB PO SCH ×3 (05:28→22:00)
[2016-07-01] MEDS: SODIUM CHLOR 0.9% PF (SALINE LOCK) 10ML VIAL IV SCH ×3 (05:29→21:38)
[2016-07-01] MEDS: ACCU-CHEK COMFORT CURVE STRIP VI SCH ×4 (06:51→22:00)
[2016-07-01] MEDS: InsuLIN REG 1unit/0.01ml Soln (100units/ml) SC SCH ×4 (06:51→22:00)
[2016-07-01 08:00] VITALS: BP 138/76
[2016-07-01] MEDS ORDERED: EPOETIN ALFA 10,000 UNIT/1 ML VIAL IV ONE (08:15)
[2016-07-01] MEDS ORDERED: DEXTROSE (50%) 50ML SYRG IV ONE (08:15)
[2016-07-01] MEDS ORDERED: ALBUTEROL SULF 2.5 MG/0.5ML(0.5%) NEB SOLN NEB ONE (08:15)
[2016-07-01] MEDS ORDERED: InsuLIN REG 1unit/0.01ml Soln (100units/ml) IV ONE (08:15)
[2016-07-01] MEDS ORDERED: SODIUM POLYSTYRENE SULF 15GM/60ML SUSP PO ONE (08:15)
[2016-07-01] MEDS ORDERED: SODIUM CHL 0.9% 1000 ML BAG XX ONE (08:15)
[2016-07-01] MEDS: ASPirin 81 mg TAB PO SCH (10:19)
[2016-07-01] MEDS: B-COMPLEX W/ C & FOLIC ACID(NEPHROVITE TAB) PO SCH (10:19)
[2016-07-01] MEDS: METOPROLOL SUCCINATE XL 50 MG TAB PO SCH (10:20)
[2016-07-01] MEDS: CLOPIDOGREL BISULFATE 75 MG TAB PO SCH (10:20)
[2016-07-01] MEDS: FERROUS SULFATE 325 MG TAB PO SCH (10:21)
[2016-07-01] MEDS: NIFEdipine ER 30 MG TAB PO SCH ×2 (10:21→22:00)
[2016-07-01] MEDS: DOCUSATE SOD 100 MG CAP PO SCH (10:21)
[2016-07-01] MEDS ORDERED: SODIUM POLYSTYRENE SULF 15GM/60ML SUSP ONE (10:23)
[2016-07-01 12:00] VITALS: BP 137/78
[2016-07-01 15:53] VITALS: BP 153/95
[2016-07-01 20:00] VITALS: BP 145/103
[2016-07-01] MEDS: QUEtiapine FUMARATE 100 MG TAB PO SCH (22:00)
[2016-07-01] MEDS: ATORVASTATIN 20 MG TAB PO SCH (22:00)
[2016-07-02] VITALS: BP 161/91
[2016-07-02 04:00] VITALS: BP 150/93
[2016-07-02] MEDS: SODIUM CHLOR 0.9% PF (SALINE LOCK) 10ML VIAL IV SCH ×3 (06:09→21:51)
[2016-07-02] MEDS: InsuLIN REG 1unit/0.01ml Soln (100units/ml) SC SCH ×4 (06:09→21:51)
[2016-07-02] MEDS: ACCU-CHEK COMFORT CURVE STRIP VI SCH ×4 (06:12→21:51)
[2016-07-02] MEDS: hydrALAZINE HCL 25 MG TAB PO SCH ×3 (06:12→21:51)
[2016-07-02 06:23] LABS: Basophils # (auto) 0 uL; Basophils % (auto) 0.5 % (0.0-2.0); DEFINITIVE VIEW TRANSMISSION; Eosinophils # (auto) 0.3 uL; Hematocrit 25.2 % (41.0-53.0); Hemoglobin 8.1 g/dL (13.5-17.5); Lymphocytes # (auto) 1.7 uL; Lymphocytes % (auto) 17.2 % (10.0-50.0); Mean Corpuscular Hemoglobin 28.1 pg (28.0-32.0); Mean Corpuscular Hgb Conc. 32.2 g/dL (32.0-36.0); Mean Corpuscular Volume 87.3 fL (80.0-100.0); Mean Platelet Volume 9.1 fL (7.4-10.4); Monocytes % (auto) 9.7 % (0.0-12.0); Neutrophils % (auto) 69.6 % (37.0-80.0); Platelet Count (auto) 254 10^3/uL (140-450); Red Cell Distribution Width 17.6 % (11.6-16.0); White Blood Cell 10.1 10^3/uL (4.4-10.8)
[2016-07-02 06:37] LABS: INR 1.06 (0.9-1.15); Partial Thromboplastin Time 28.6 sec (22.64-33.71); Prothrombin Time 11.4 sec (9.37-12.3)
[2016-07-02 06:53] LABS: Albumin 2.1 g/dL (3.4-5.0); BUN/Creatinine Ratio 4.8; Calcium 8.1 mg/dL (8.5-10.1)
[2016-07-02 07:00] LABS: Potassium 5.7 mmol/L (3.5-5.1)
[2016-07-02 07:01] LABS: Bilirubin, Total 0.2 mg/dL (0.2-1.0); Total Protein 6.5 g/dL (6.4-8.2)
[2016-07-02 08:00] VITALS: BP 143/86
[2016-07-02] MEDS: DOCUSATE SOD 100 MG CAP PO SCH (10:00)
[2016-07-02] MEDS: ASPirin 81 mg TAB PO SCH (10:47)
[2016-07-02] MEDS: CLOPIDOGREL BISULFATE 75 MG TAB PO SCH (10:48)
[2016-07-02] MEDS: B-COMPLEX W/ C & FOLIC ACID(NEPHROVITE TAB) PO SCH (10:48)
[2016-07-02] MEDS: FERROUS SULFATE 325 MG TAB PO SCH (10:48)
[2016-07-02] MEDS: NIFEdipine ER 30 MG TAB PO SCH ×2 (10:48→21:51)
[2016-07-02] MEDS: METOPROLOL SUCCINATE XL 50 MG TAB PO SCH (10:48)
[2016-07-02 12:06] VITALS: BP 152/97
[2016-07-02] MEDS ORDERED: SODIUM POLYSTYRENE SULF 15GM/60ML SUSP PO ONE ×2 (12:30→17:45)
[2016-07-02] MEDS ORDERED: ALBUTEROL SULF 2.5 MG/0.5ML(0.5%) NEB SOLN HHN ONE (12:30)
[2016-07-02] MEDS ORDERED: CALCIUM GLUC 4.65 MEQ/10ML 4.65 MEQ in SODIUM CHL 0.9% 50 ML IV ONE ×2 (12:30→17:45)
[2016-07-02] MEDS ORDERED: InsuLIN REG 1unit/0.01ml Soln (100units/ml) IV ONE ×2 (12:30→17:45)
[2016-07-02] MEDS ORDERED: DEXTROSE (50%) 50ML SYRG IV ONE ×2 (12:30→17:45)
[2016-07-02 16:00] VITALS: BP 148/89
[2016-07-02] MEDS: ceFAZolin 1GM/50ML D5W 50 ML IV SCH (16:31)
[2016-07-02] MEDS ORDERED: ALBUTEROL SULF 2.5 MG/0.5ML(0.5%) NEB SOLN NEB ONE (17:45)
[2016-07-02 20:00] VITALS: BP 143/78
[2016-07-02] MEDS: ATORVASTATIN 20 MG TAB PO SCH (21:51)
[2016-07-02] MEDS: QUEtiapine FUMARATE 100 MG TAB PO SCH (21:51)
[2016-07-03] VITALS: BP 142/86
[2016-07-03 04:00] VITALS: BP 147/95
[2016-07-03] MEDS: hydrALAZINE HCL 25 MG TAB PO SCH ×3 (05:36→21:45)
[2016-07-03] MEDS: SODIUM CHLOR 0.9% PF (SALINE LOCK) 10ML VIAL IV SCH ×3 (05:36→22:00)
[2016-07-03 06:42] LABS: BUN/Creatinine Ratio 4.9; Calcium 8.7 mg/dL (8.5-10.1)
[2016-07-03] MEDS: InsuLIN REG 1unit/0.01ml Soln (100units/ml) SC SCH ×4 (07:00→22:00)
[2016-07-03 07:11] LABS: Potassium 5.8 mmol/L (3.5-5.1)
[2016-07-03] MEDS: ACCU-CHEK COMFORT CURVE STRIP VI SCH ×4 (07:25→22:00)
[2016-07-03 08:00] VITALS: BP 157/91
[2016-07-03] MEDS ORDERED: InsuLIN REG 1unit/0.01ml Soln (100units/ml) IV ONE ×2 (10:00→20:45)
[2016-07-03] MEDS: DOCUSATE SOD 100 MG CAP PO SCH (10:00)
[2016-07-03] MEDS ORDERED: ALBUTEROL SULF 2.5 MG/0.5ML(0.5%) NEB SOLN NEB ONE ×2 (10:00→22:00)
[2016-07-03] MEDS ORDERED: DEXTROSE (50%) 50ML SYRG IV ONE ×2 (10:00→20:45)
[2016-07-03] MEDS ORDERED: SODIUM POLYSTYRENE SULF 15GM/60ML SUSP PO ONE ×3 (10:00→20:45)
[2016-07-03] MEDS ORDERED: CALCIUM GLUC 4.65 MEQ/10ML 4.65 MEQ in SODIUM CHL 0.9% 50 ML IV ONE ×2 (10:00→20:45)
[2016-07-03] MEDS: ceFAZolin 1GM/50ML D5W 50 ML IV SCH (10:09)
[2016-07-03] MEDS: ASPirin 81 mg TAB PO SCH (10:09)
[2016-07-03] MEDS: B-COMPLEX W/ C & FOLIC ACID(NEPHROVITE TAB) PO SCH (10:09)
[2016-07-03] MEDS: FERROUS SULFATE 325 MG TAB PO SCH (10:09)
[2016-07-03] MEDS: CLOPIDOGREL BISULFATE 75 MG TAB PO SCH (10:10)
[2016-07-03] MEDS: NIFEdipine ER 30 MG TAB PO SCH ×2 (10:10→21:45)
[2016-07-03] MEDS: METOPROLOL SUCCINATE XL 50 MG TAB PO SCH (10:10)
[2016-07-03] MEDS: cloNIDine HCL 0.1 MG TAB PO PRN (12:19)
[2016-07-03 16:00] VITALS: BP 158/105
[2016-07-03 20:00] VITALS: BP 154/108
[2016-07-03] MEDS ORDERED: SODIUM BICARBONATE 8.4% INJ 50ML SYRINGE IV ONE (20:45)
[2016-07-03] MEDS ORDERED: SODIUM POLYSTYRENE SULF 15GM/60ML SUSP ONE (20:51)
[2016-07-03] MEDS ORDERED: CALCIUM GLUC 4.65 MEQ/10ML IV ONE (20:53)
[2016-07-03] MEDS: ATORVASTATIN 20 MG TAB PO SCH (21:43)
[2016-07-03] MEDS: QUEtiapine FUMARATE 100 MG TAB PO SCH (21:46)
[2016-07-04] VITALS: BP 145/76
[2016-07-04 04:00] VITALS: BP 140/78
[2016-07-04] MEDS: ceFAZolin 1GM/50ML D5W 50 ML IV SCH ×2 (04:00→21:41)
[2016-07-04 04:41] LABS: Basophils # (auto) 0.1 uL; Basophils % (auto) 0.8 % (0.0-2.0); DEFINITIVE VIEW TRANSMISSION; Eosinophils # (auto) 0.3 uL; Eosinophils % (auto) 3.2 % (0.0-7.0); Hematocrit 23.1 % (41.0-53.0); Hemoglobin 7.5 g/dL (13.5-17.5); Lymphocytes # (auto) 1.6 uL; Lymphocytes % (auto) 16.9 % (10.0-50.0); Mean Corpuscular Hemoglobin 28.4 pg (28.0-32.0); Mean Corpuscular Hgb Conc. 32.6 g/dL (32.0-36.0); Mean Corpuscular Volume 87.2 fL (80.0-100.0); Mean Platelet Volume 8.2 fL (7.4-10.4); Monocytes # (auto) 0.9 uL; Neutrophils # (auto) 6.5 uL; Neutrophils % (auto) 69.1 % (37.0-80.0); Platelet Count (auto) 398 10^3/uL (140-450); Red Cell Distribution Width 17.6 % (11.6-16.0); White Blood Cell 9.4 10^3/uL (4.4-10.8)
[2016-07-04 05:03] LABS: BUN/Creatinine Ratio 5.1; Calcium 8.4 mg/dL (8.5-10.1); Magnesium 2.2 mg/dL (1.6-2.6); Potassium 5.4 mmol/L (3.5-5.1)
[2016-07-04] MEDS: SODIUM CHLOR 0.9% PF (SALINE LOCK) 10ML VIAL IV SCH ×3 (05:55→21:37)
[2016-07-04] MEDS: hydrALAZINE HCL 25 MG TAB PO SCH ×3 (06:20→21:40)
[2016-07-04] MEDS: InsuLIN REG 1unit/0.01ml Soln (100units/ml) SC SCH ×4 (06:42→21:52)
[2016-07-04] MEDS: ACCU-CHEK COMFORT CURVE STRIP VI SCH ×4 (06:42→21:52)
[2016-07-04 08:00] VITALS: BP 156/98
[2016-07-04] MEDS: ASPirin 81 mg TAB PO SCH (10:39)
[2016-07-04] MEDS: CLOPIDOGREL BISULFATE 75 MG TAB PO SCH (10:39)
[2016-07-04] MEDS: DOCUSATE SOD 100 MG CAP PO SCH (10:39)
[2016-07-04] MEDS: FERROUS SULFATE 325 MG TAB PO SCH (10:39)
[2016-07-04 12:00] VITALS: BP 134/91
[2016-07-04] MEDS ORDERED: EPOETIN ALFA 10,000 UNIT/1 ML VIAL IV ONE (12:00)
[2016-07-04] MEDS ORDERED: HEPARIN 1,000 UNITS/ml 1ML VIAL IV ONE ×3 (12:15)
[2016-07-04] MEDS: B-COMPLEX W/ C & FOLIC ACID(NEPHROVITE TAB) PO SCH (14:47)
[2016-07-04] MEDS: NIFEdipine ER 30 MG TAB PO SCH ×2 (14:48→21:39)
[2016-07-04] MEDS: METOPROLOL SUCCINATE XL 50 MG TAB PO SCH (14:49)
[2016-07-04 16:00] VITALS: BP 162/97
[2016-07-04] MEDS ORDERED: ACETAMINOPHEN 325 MG TAB PO PRN (16:45)
[2016-07-04] MEDS: cloNIDine HCL 0.1 MG TAB PO PRN (17:03)
[2016-07-04 20:00] VITALS: BP 148/85
[2016-07-04] MEDS: ATORVASTATIN 20 MG TAB PO SCH (21:37)
[2016-07-04] MEDS: QUEtiapine FUMARATE 100 MG TAB PO SCH (21:40)
[2016-07-05] VITALS: BP 145/90
[2016-07-05 04:00] VITALS: BP 139/88
[2016-07-05] MEDS: ACCU-CHEK COMFORT CURVE STRIP VI SCH ×2 (06:14→11:38)
[2016-07-05] MEDS: InsuLIN REG 1unit/0.01ml Soln (100units/ml) SC SCH ×2 (06:14→11:30)
[2016-07-05] MEDS: hydrALAZINE HCL 25 MG TAB PO SCH (06:23)
[2016-07-05] MEDS: SODIUM CHLOR 0.9% PF (SALINE LOCK) 10ML VIAL IV SCH (06:25)
[2016-07-05 07:52] LABS: Hematocrit 23.2 % (41.0-53.0); Hemoglobin 7.6 g/dL (13.5-17.5)
[2016-07-05 07:59] VITALS: BP 133/81
[2016-07-05] MEDS: DOCUSATE SOD 100 MG CAP PO SCH (10:00)
[2016-07-05] MEDS: ASPirin 81 mg TAB PO SCH (10:19)
[2016-07-05] MEDS: B-COMPLEX W/ C & FOLIC ACID(NEPHROVITE TAB) PO SCH (10:19)
[2016-07-05] MEDS: CLOPIDOGREL BISULFATE 75 MG TAB PO SCH (10:19)
[2016-07-05] MEDS: FERROUS SULFATE 325 MG TAB PO SCH (10:19)
[2016-07-05] MEDS: NIFEdipine ER 30 MG TAB PO SCH (10:20)
[2016-07-05] MEDS: METOPROLOL SUCCINATE XL 50 MG TAB PO SCH (10:20)
[2016-07-05 11:53] VITALS: BP 150/83
== END 2016-07-05 13:35 | disposition home or self-care (01) | DRG 466 ==
LOC: EDBD 00:21 → ER 00:23 → TELE 00:24 → DOU IN ICU 10:39
PROVIDERS: ADMIT Internal Medicine; ATTEND Internal Medicine Pulmonary Disease
PROC: 5A1D60Z (ICD-10-PCS; principal; 2016-06-27)
PROC: 30233N1 Transfusion of Nonautologous Red Blood Cells into Peripheral Vein, Percutaneous Approach (ICD-10-PCS; 2016-06-29)
DX: T82.7XXA Infection and inflammatory reaction due to other cardiac and vascular devices, implants and grafts, initial encounter (principal); N18.6 End stage renal disease; A41.01 Sepsis due to Methicillin susceptible Staphylococcus aureus; D68.9 Coagulation defect, unspecified; I13.11 Hypertensive heart and chronic kidney disease without heart failure, with stage 5 chronic kidney disease, or end stage renal disease; I38 Endocarditis, valve unspecified; E44.0 Moderate protein-calorie malnutrition; E11.21 Type 2 diabetes mellitus with diabetic nephropathy; F20.9 Schizophrenia, unspecified; G40.909 Epilepsy, unspecified, not intractable, without status epilepticus; D63.8 Anemia in other chronic diseases classified elsewhere; E87.1 Hypo-osmolality and hyponatremia; E87.5 Hyperkalemia; B19.20 Unspecified viral hepatitis C without hepatic coma; Y84.8 Other medical procedures as the cause of abnormal reaction of the patient, or of later complication, without mention of misadventure at the time of the procedure; E11.22 Type 2 diabetes mellitus with diabetic chronic kidney disease; E11.649 Type 2 diabetes mellitus with hypoglycemia without coma; Z99.2 Dependence on renal dialysis; Z91.14 Patient's other noncompliance with medication regimen; Z79.4 Long term (current) use of insulin; Y92.89 Other specified places as the place of occurrence of the external cause
CPT/HCPCS: 36415; 71010; 78452; 80048; 80053; 80061; 80202; 80307; 81003; 82962; 83036; 83605; 83735; 83880; 84132; 84484; 85014; 85018; 85025; 85610; 85730; 86141; 86850; 86900; 86901; 86920; 87040; 87077; 87086; 87186; 87205; 90935; 93005; 93017; 93306; 94640; 94644; 94645; 94761; 96365; 96375; 99291; J0153; J0690; J0696; J0885; J1642; J1815; J2405; J2543; J3490; J7060

== ENCOUNTER 2016-10-11 18:20 | Inpatient (IN) | payer MEDICAID ==
[~2016-10-11] VITALS: Ht 172.7 cm; Wt 82.6 kg
[~2016-10-11 18:20] MED LIST changes: +MIN25T PO; +NIF30XLT PO; -NIFE60TA59 PO; +OLAN20TA13 PO
[2016-10-11 19:44] LABS: Basophils # (auto) 0.1 uL; Basophils % (auto) 0.7 % (0.0-2.0); CONDITION Y; DEFINITIVE SEE PRINTOUT; Eosinophils # (auto) 0.4 uL; Hematocrit 24.5 % (41.0-53.0); Hemoglobin 8.1 g/dL (13.5-17.5); Lymphocytes # (auto) 1.7 uL; Lymphocytes % (auto) 21.5 % (10.0-50.0); Mean Corpuscular Hemoglobin 28.1 pg (28.0-32.0); Mean Corpuscular Volume 85.4 fL (80.0-100.0); Mean Platelet Volume 7.1 fL (7.4-10.4); Monocytes # (auto) 1.2 uL; Neutrophils # (auto) 4.6 uL; Neutrophils % (auto) 57.8 % (37.0-80.0); Platelet Count (auto) 405 10^3/uL (140-450); White Blood Cell 7.9 10^3/uL (4.4-10.8)
[2016-10-11 19:45] LABS: Red Cell Distribution Width 20.6 % (11.6-16.0)
[2016-10-11 20:02] LABS: Albumin 2.7 g/dL (3.4-5.0); Calcium 8.9 mg/dL (8.5-10.1)
[2016-10-11 20:10] LABS: Bilirubin, Total 0.3 mg/dL (0.2-1.0); Total Protein 8.8 g/dL (6.4-8.2)
[2016-10-11 20:11] LABS: B-Type Natriuretic Peptide 3863.07 pg/mL (0-100)
[2016-10-11 20:23] LABS: BUN/Creatinine Ratio 8.7
[2016-10-11 20:25] LABS: Potassium 8.3 mmol/L (3.5-5.1)
[2016-10-11 20:26] LABS: Temperature: 23.1 C (20.0-25.0)
[2016-10-11] MEDS ORDERED: CALCIUM GLUC 4.65meq/50ml D5AE 50 ML IV ONE (21:30)
[2016-10-11] MEDS ORDERED: SODIUM POLYSTYRENE SULF 15GM/60ML SUSP PO ONE (21:30)
[2016-10-11] MEDS ORDERED: ONDANSETRON HCL 4 MG/2 ML VIAL IV ONE (21:30)
[2016-10-11] MEDS ORDERED: SODIUM BICARBONATE 8.4 % INJ 50ML VIAL IV ONE (21:30)
[2016-10-11] MEDS ORDERED: InsuLIN REG 1unit/0.01ml Soln (100units/ml) IV ONE (21:30)
[2016-10-11] MEDS ORDERED: HYDROmorphone HCL 2 MG/ML VL IV ONE (21:30)
[2016-10-11] MEDS ORDERED: DEXTROSE (25%) 10 ML SYRG IV ONE (22:00)
[2016-10-11] MEDS ORDERED: DEXTROSE 50% SYRINGE 50 ML IV ONE (22:05)
[2016-10-11] MEDS ORDERED: DEXTROSE (50%) 50ML SYRG IV ONE (22:15)
[2016-10-11] MEDS ORDERED: SODIUM BICARBONATE 8.4% INJ 50ML SYRINGE ONE (22:32)
[2016-10-12] MEDS ORDERED: ACETAMINOPHEN 325 MG TAB PO PRN (02:15)
[2016-10-12] MEDS ORDERED: DEXTROSE (50%) 50ML SYRG IV PRN (02:15)
[2016-10-12] MEDS ORDERED: CALCIUM GLUC 4.65meq/50ml D5AE 50 ML IV ONE (02:15)
[2016-10-12] MEDS ORDERED: DEXTROSE (50%) 50ML SYRG IV ONE (02:15)
[2016-10-12] MEDS ORDERED: MORPHINE SULF INJ 2 MG/ML SYRINGE 1ML IV PRN (02:15)
[2016-10-12] MEDS ORDERED: NITROGLYCERIN 0.4 MG SL TAB SL PRN (02:15)
[2016-10-12] MEDS ORDERED: SODIUM BICARBONATE 8.4 % INJ 50ML VIAL IV ONE (02:15)
[2016-10-12] MEDS ORDERED: ONDANSETRON HCL 4 MG/2 ML VIAL IV PRN (02:15)
[2016-10-12] MEDS ORDERED: InsuLIN REG 1unit/0.01ml Soln (100units/ml) IV ONE (02:15)
[2016-10-12] MEDS ORDERED: ALBUTEROL SULF 2.5 MG/0.5ML(0.5%) NEB SOLN NEB ONE (02:15)
[2016-10-12] MEDS ORDERED: FUROSEMIDE 20 MG/2 ML VIAL IV ONE (02:15)
[2016-10-12] MEDS ORDERED: SODIUM POLYSTYRENE SULF 15GM/60ML SUSP PO ONE (02:15)
[2016-10-12] MEDS ORDERED: HYDROcodone-ACET 5/325MG TAB PO PRN (02:15)
[2016-10-12 02:24] LABS: Urine Bilirubin Negative (Negative); Urine Blood Negative /uL (Negative); Urine Color Yellow (Yellow); Urine Glucose 2+ mg/dL (Normal); Urine Ketone Negative (Negative); Urine Nitrite Negative (Negative); Urine RBC 1 /hpf (0 - 3); Urine Urobilinogen Normal (Negative); Urine pH 7.5 (5.0-8.0)
[2016-10-12] MEDS ORDERED: FUROSEMIDE 100 MG/10ML VIAL IV ONE (02:30)
[2016-10-12] MEDS ORDERED: SODIUM BICARBONATE 8.4% INJ 50ML SYRINGE ONE (03:05)
[2016-10-12] MEDS: InsuLIN REG 1unit/0.01ml Soln (100units/ml) SC SCH ×3 (06:33→17:10)
[2016-10-12] MEDS: ACCU-CHEK COMFORT CURVE STRIP VI SCH ×3 (06:33→17:10)
[2016-10-12] MEDS ORDERED: EPOETIN ALFA 10,000 UNIT/1 ML VIAL IV ONE (08:15)
[2016-10-12] MEDS ORDERED: SODIUM CHL 0.9% 1000 ML BAG XX ONE (08:15)
[2016-10-12] MEDS: FERROUS SULFATE 325 MG TAB PO SCH ×2 (08:23→17:07)
[2016-10-12] MEDS ORDERED: NIFEdipine ER 30 MG TAB PO SCH (10:00)
[2016-10-12] MEDS ORDERED: cloNIDine HCL 0.1 MG TAB PO PRN (12:30)
[2016-10-12] MEDS: MINOXIDIL 2.5 MG TAB PO SCH (12:48)
[2016-10-12] MEDS: METOPROLOL TARTRATE 25 MG TAB PO SCH ×2 (12:48→22:20)
[2016-10-12] MEDS: B-COMPLEX W/ C & FOLIC ACID(NEPHROVITE TAB) PO SCH (12:49)
[2016-10-12] MEDS: PANTOPRAZOLE 40 MG TAB PO SCH (12:49)
[2016-10-12] MEDS: ENOXAPARIN SOD 30 MG/0.3 ML SYRINGE SC SCH (12:49)
[2016-10-12] MEDS: hydrALAZINE HCL 25 MG TAB PO PRN (15:13)
[2016-10-12] MEDS ORDERED: cloNIDine HCL 0.1 MG TAB PO ONE (17:00)
[2016-10-12] MEDS ORDERED: hydrALAZINE HCL 25 MG TAB PO ONE (17:00)
[2016-10-12] MEDS ORDERED: LABETALOL HCL 5 MG/ML ML 20ML VIAL IV PRN (17:00)
[2016-10-12] MEDS: BOOST PLUS 8 ounce PO SCH (18:26)
[2016-10-12 21:28] LABS: BUN/Creatinine Ratio 8.8; Calcium 8.7 mg/dL (8.5-10.1)
[2016-10-12 21:40] LABS: Potassium 6.6 mmol/L (3.5-5.1)
[2016-10-12] MEDS: hydrALAZINE HCL 25 MG TAB PO SCH (22:20)
[2016-10-12] MEDS: cloNIDine HCL 0.1 MG TAB PO SCH (22:20)
[2016-10-12] MEDS: NIFEdipine ER 30 MG TAB PO SCH (22:20)
[2016-10-13 00:30] VITALS: BP 157/86
[2016-10-13] MEDS: ACCU-CHEK COMFORT CURVE STRIP VI SCH ×4 (00:30→18:07)
[2016-10-13] MEDS: InsuLIN REG 1unit/0.01ml Soln (100units/ml) SC SCH ×4 (00:30→18:00)
[2016-10-13] MEDS: hydrALAZINE HCL 25 MG TAB PO PRN (01:26)
[2016-10-13 04:42] LABS: Basophils # (auto) 0.1 uL; CONDITION Y; DEFINITIVE SEE PRINTOUT; Eosinophils # (auto) 0.3 uL; Eosinophils % (auto) 4.1 % (0.0-7.0); Hematocrit 23.2 % (41.0-53.0); Hemoglobin 7.4 g/dL (13.5-17.5); Lymphocytes # (auto) 1.8 uL; Lymphocytes % (auto) 26.4 % (10.0-50.0); Mean Corpuscular Hemoglobin 27.6 pg (28.0-32.0); Mean Corpuscular Hgb Conc. 31.9 g/dL (32.0-36.0); Mean Corpuscular Volume 86.4 fL (80.0-100.0); Mean Platelet Volume 7.8 fL (7.4-10.4); Monocytes # (auto) 1.2 uL; Neutrophils # (auto) 3.5 uL; Neutrophils % (auto) 51.5 % (37.0-80.0); Platelet Count (auto) 344 10^3/uL (140-450); White Blood Cell 6.8 10^3/uL (4.4-10.8)
[2016-10-13 04:50] LABS: Albumin 2.5 g/dL (3.4-5.0); Calcium 8.8 mg/dL (8.5-10.1)
[2016-10-13 05:00] VITALS: BP 131/81
[2016-10-13 05:00] LABS: BUN/Creatinine Ratio 8.9; Bilirubin, Total 0.3 mg/dL (0.2-1.0); Total Protein 8.2 g/dL (6.4-8.2)
[2016-10-13 05:03] LABS: Red Cell Distribution Width 20.2 % (11.6-16.0)
[2016-10-13 05:08] LABS: Potassium 7.3 mmol/L (3.5-5.1)
[2016-10-13] MEDS ORDERED: DEXTROSE (50%) 50ML SYRG IV ONE ×2 (05:30→12:45)
[2016-10-13] MEDS ORDERED: CALCIUM CHL 100MG/ML 1,000 MG in D5W 5% 100 ML IV ONE ×2 (05:30→06:45)
[2016-10-13] MEDS ORDERED: SODIUM POLYSTYRENE SULF 15GM/60ML SUSP PO ONE (05:30)
[2016-10-13] MEDS ORDERED: InsuLIN REG 1unit/0.01ml Soln (100units/ml) IV ONE ×2 (05:30→12:45)
[2016-10-13] MEDS ORDERED: SODIUM BICARBONATE 8.4% INJ 50ML SYRINGE IV ONE (05:30)
[2016-10-13] MEDS ORDERED: ALBUTEROL SULF 2.5 MG/0.5ML(0.5%) NEB SOLN NEB ONE ×2 (05:30→12:45)
[2016-10-13 05:46] LABS: Anisocytosis Moderate; Platelet Estimate Adequate
[2016-10-13 05:47] LABS: Ovalocytes FEW
[2016-10-13] MEDS: cloNIDine HCL 0.1 MG TAB PO SCH ×3 (05:59→21:51)
[2016-10-13] MEDS: hydrALAZINE HCL 25 MG TAB PO SCH ×3 (05:59→21:54)
[2016-10-13] MEDS: FERROUS SULFATE 325 MG TAB PO SCH ×2 (08:00→18:07)
[2016-10-13] MEDS: BOOST PLUS 8 ounce PO SCH ×3 (08:00→18:08)
[2016-10-13 09:00] VITALS: BP 155/89
[2016-10-13] MEDS: MINOXIDIL 2.5 MG TAB PO SCH (10:37)
[2016-10-13] MEDS: NIFEdipine ER 30 MG TAB PO SCH ×2 (10:37→21:53)
[2016-10-13] MEDS: PANTOPRAZOLE 40 MG TAB PO SCH (10:37)
[2016-10-13] MEDS: ENOXAPARIN SOD 30 MG/0.3 ML SYRINGE SC SCH (10:38)
[2016-10-13] MEDS: B-COMPLEX W/ C & FOLIC ACID(NEPHROVITE TAB) PO SCH (10:38)
[2016-10-13] MEDS: METOPROLOL TARTRATE 25 MG TAB PO SCH ×2 (10:38→21:55)
[2016-10-13 13:00] VITALS: BP 145/81
[2016-10-13 17:00] VITALS: BP 150/96
[2016-10-13] MEDS: SODIUM POLYSTYRENE SULF 15GM/60ML SUSP PO SCH (21:50)
[2016-10-13 22:00] VITALS: BP 159/106
[2016-10-14 05:00] VITALS: BP 143/96
[2016-10-14] MEDS: InsuLIN REG 1unit/0.01ml Soln (100units/ml) SC SCH ×3 (05:32→12:00)
[2016-10-14] MEDS: ACCU-CHEK COMFORT CURVE STRIP VI SCH ×3 (05:33→12:00)
[2016-10-14] MEDS: hydrALAZINE HCL 25 MG TAB PO SCH ×2 (05:33→14:51)
[2016-10-14] MEDS: cloNIDine HCL 0.1 MG TAB PO SCH ×2 (05:33→14:52)
[2016-10-14] MEDS ORDERED: EPOETIN ALFA 10,000 UNIT/1 ML VIAL IV ONE ×2 (08:00→09:00)
[2016-10-14] MEDS ORDERED: SODIUM CHL 0.9% 1000 ML BAG XX ONE ×2 (08:00→09:00)
[2016-10-14] MEDS: BOOST PLUS 8 ounce PO SCH ×2 (08:31→12:00)
[2016-10-14] MEDS: FERROUS SULFATE 325 MG TAB PO SCH (08:31)
[2016-10-14 09:55] VITALS: BP 140/73
[2016-10-14] MEDS: NIFEdipine ER 30 MG TAB PO SCH (10:00)
[2016-10-14] MEDS: PANTOPRAZOLE 40 MG TAB PO SCH (10:00)
[2016-10-14] MEDS: METOPROLOL TARTRATE 25 MG TAB PO SCH (10:00)
[2016-10-14] MEDS: ENOXAPARIN SOD 30 MG/0.3 ML SYRINGE SC SCH (10:00)
[2016-10-14] MEDS: B-COMPLEX W/ C & FOLIC ACID(NEPHROVITE TAB) PO SCH (10:00)
[2016-10-14 13:17] VITALS: BP 135/76
[2016-10-14 13:34] VITALS: BP 139/86
[2016-10-14] MEDS: SODIUM POLYSTYRENE SULF 15GM/60ML SUSP PO SCH (14:51)
[2016-10-14] MEDS: MINOXIDIL 2.5 MG TAB PO SCH (14:51)
[2016-10-14 15:56] LABS: CONDITION Y; DEFINITIVE SEE PRINTOUT; Hematocrit 26.4 % (41.0-53.0); Hemoglobin 8.7 g/dL (13.5-17.5); Mean Corpuscular Hemoglobin 27.8 pg (28.0-32.0); Mean Corpuscular Hgb Conc. 32.8 g/dL (32.0-36.0); Mean Corpuscular Volume 84.6 fL (80.0-100.0); Mean Platelet Volume 7.8 fL (7.4-10.4); Platelet Count (auto) 371 10^3/uL (140-450); Red Cell Distribution Width 19.7 % (11.6-16.0); White Blood Cell 5.2 10^3/uL (4.4-10.8)
[2016-10-14 15:59] LABS: Metamyelocytes % 0; Myelocytes % 0; Promyelocytes % 0; Reactive Lymphocytes 0
[2016-10-14 16:20] LABS: Anisocytosis Slight; Platelet Estimate Adequate
[2016-10-14 16:23] LABS: BUN/Creatinine Ratio 8.2; Calcium 8.8 mg/dL (8.5-10.1); Potassium 5.1 mmol/L (3.5-5.1)
[2016-10-14 17:18] VITALS: BP 151/92
[2016-10-14 17:46] VITALS: BP 151/92
== END 2016-10-14 19:00 | disposition home or self-care (01) | DRG 194 ==
LOC: EDBD 18:20 → ER 18:20 → TELE 18:21 → TELE-WESTW 10-12 00:42 → TELE 10-12 02:28 → WEST WING 10-12 23:57 → TELE-WESTW 10-12 23:59
PROVIDERS: ADMIT Nurse Practitioner; ATTEND Internal Medicine Pulmonary Disease
PROC: 5A1D00Z (ICD-10-PCS; principal; 2016-10-14)
DX: I13.2 Hypertensive heart and chronic kidney disease with heart failure and with stage 5 chronic kidney disease, or end stage renal disease (principal); N18.6 End stage renal disease; E11.22 Type 2 diabetes mellitus with diabetic chronic kidney disease; E44.0 Moderate protein-calorie malnutrition; I50.33 Acute on chronic diastolic (congestive) heart failure; B19.20 Unspecified viral hepatitis C without hepatic coma; D63.8 Anemia in other chronic diseases classified elsewhere; Z99.2 Dependence on renal dialysis; E87.5 Hyperkalemia; F20.9 Schizophrenia, unspecified; F31.9 Bipolar disorder, unspecified; Z53.29 Procedure and treatment not carried out because of patient's decision for other reasons; E11.42 Type 2 diabetes mellitus with diabetic polyneuropathy; J98.11 Atelectasis; Z91.14 Patient's other noncompliance with medication regimen; Z91.15 Patient's noncompliance with renal dialysis; Z68.27 Body mass index [BMI] 27.0-27.9, adult; Z79.899 Other long term (current) drug therapy
CPT/HCPCS: 36415; 71010; 80048; 80053; 81001; 82962; 83880; 84132; 84484; 85007; 85025; 85027; 87081; 90935; 93005; 94640; 94644; 96365; 96366; 96375; J0610; J0885; J1642; J1815; J2405; J7060

== ENCOUNTER 2016-12-07 05:10 | Inpatient (IN) | payer MEDICAID ==
[~2016-12-07] VITALS: Ht 177.8 cm; Wt 72.6 kg
[~2016-12-07 05:10] MED LIST changes: -HYDR-2651 PO; +HYDR25TA35 PO
[2016-12-07] MEDS ORDERED: cloNIDine HCL 0.1 MG TAB ONE ×2 (05:37→05:38)
[2016-12-07] MEDS ORDERED: cloNIDine HCL 0.1 MG TAB PO ONE ×2 (06:00→15:45)
[2016-12-07 08:12] LABS: Basophils # (auto) 0.1 uL; Basophils % (auto) 0.9 % (0.0-2.0); Eosinophils # (auto) 0.2 uL; Eosinophils % (auto) 2.2 % (0.0-7.0); Hematocrit 27.1 % (41.0-53.0); Hemoglobin 8.8 g/dL (13.5-17.5); Lymphocytes # (auto) 1.9 uL; Mean Corpuscular Hemoglobin 28.6 pg (28.0-32.0); Mean Corpuscular Hgb Conc. 32.6 g/dL (32.0-36.0); Mean Corpuscular Volume 87.7 fL (80.0-100.0); Mean Platelet Volume 7.3 fL (6.9-10.8); Monocytes # (auto) 1.8 uL; Monocytes % (auto) 17.6 % (0.0-12.0); Neutrophils # (auto) 6.3 uL; Neutrophils % (auto) 61.3 % (37.0-80.0); Platelet Count (auto) 260 10^3/uL (140-450); Red Cell Distribution Width 19.7 % (11.8-14.3); White Blood Cell 10.3 10^3/uL (4.4-10.8)
[2016-12-07 08:35] LABS: BUN/Creatinine Ratio 6.6; Bilirubin, Total 0.4 mg/dL (0.2-1.0); Calcium 9.3 mg/dL (8.5-10.1); Potassium 5.2 mmol/L (3.5-5.1); Total Protein 9.6 g/dL (6.4-8.2)
[2016-12-07] MEDS ORDERED: EPOETIN ALFA 10,000 UNIT/1 ML VIAL IV ONE (09:15)
[2016-12-07] MEDS ORDERED: SODIUM CHL 0.9% 1000 ML BAG XX ONE (09:15)
[2016-12-07 09:23] LABS: Anisocytosis Slight; Platelet Estimate Adequate
[2016-12-07] MEDS ORDERED: hydrALAZINE HCL 20 MG/ML VL IV ONE ×2 (10:45→15:45)
[2016-12-07] MEDS ORDERED: LABETALOL HCL 5 MG/ML 4ML SYRINGE IV ONE (15:45)
[2016-12-07 16:29] LABS: BUN/Creatinine Ratio 5.7; Calcium 8.9 mg/dL (8.5-10.1); Potassium 3.5 mmol/L (3.5-5.1)
[2016-12-07] MEDS ORDERED: DILTIAZEM 125mg/125ml BAG KIT 125 ML IV ONE (16:30)
[2016-12-07] MEDS ORDERED: DEXTROSE (50%) 50ML SYRG IV PRN (17:00)
[2016-12-07] MEDS ORDERED: TEMAZEPAM 15 MG CAP PO PRN (17:15)
[2016-12-07] MEDS ORDERED: ACETAMINOPHEN 325 MG TAB PO PRN (17:15)
[2016-12-07] MEDS ORDERED: ONDANSETRON HCL 4 MG/2 ML VIAL IV PRN (17:15)
[2016-12-07] MEDS ORDERED: MORPHINE SULF INJ 2 MG/ML SYRINGE 1ML IV PRN ×2 (17:15)
[2016-12-07] MEDS ORDERED: NITROGLYCERIN 0.4 MG SL TAB SL PRN (17:15)
[2016-12-07] MEDS ORDERED: MINOXIDIL 2.5 MG TAB PO ONE (17:30)
[2016-12-07] MEDS ORDERED: B-COMPLEX W/ C & FOLIC ACID(NEPHROVITE TAB) PO ONE (17:30)
[2016-12-07] MEDS ORDERED: METOPROLOL TARTRATE 25 MG TAB PO ONE (17:30)
[2016-12-07] MEDS ORDERED: MULTIPLE VITAMIN TAB PO ONE (17:30)
[2016-12-07] MEDS ORDERED: OLANZapine 5 MG TAB PO ONE (17:30)
[2016-12-07] MEDS ORDERED: NIFEdipine ER 30 MG TAB PO ONE (17:30)
[2016-12-07] MEDS: InsuLIN REG 1unit/0.01ml Soln (100units/ml) SC SCH ×2 (17:43→22:00)
[2016-12-07] MEDS: ACCU-CHEK COMFORT CURVE STRIP VI SCH ×2 (17:43→22:00)
[2016-12-07] MEDS: FERROUS SULFATE 325 MG TAB PO SCH (18:18)
[2016-12-07] MEDS: Boost Glucose Control 8 Ounces PO SCH (18:33)
[2016-12-07] MEDS: SODIUM CHLOR 0.9% PF (SALINE LOCK) 10ML VIAL IV SCH (22:00)
[2016-12-07] MEDS: QUEtiapine FUMARATE 100 MG TAB PO SCH (22:00)
[2016-12-07] MEDS: FAMOTIDINE 20 MG TAB PO SCH (22:00)
[2016-12-07] MEDS: METOPROLOL TARTRATE 25 MG TAB PO SCH (22:00)
[2016-12-08] MEDS: SODIUM CHLOR 0.9% PF (SALINE LOCK) 10ML VIAL IV SCH ×3 (06:03→22:00)
[2016-12-08 06:12] LABS: Hematocrit 30.5 % (41.0-53.0); Hemoglobin 9.8 g/dL (13.5-17.5); Mean Corpuscular Hemoglobin 28.2 pg (28.0-32.0); Mean Corpuscular Hgb Conc. 32.1 g/dL (32.0-36.0); Mean Corpuscular Volume 87.9 fL (80.0-100.0); Mean Platelet Volume 7.4 fL (6.9-10.8); Platelet Count (auto) 239 10^3/uL (140-450); Red Cell Distribution Width 19.4 % (11.8-14.3)
[2016-12-08 06:18] LABS: Metamyelocytes % 0; Myelocytes % 0; Promyelocytes % 0; Reactive Lymphocytes 0
[2016-12-08] MEDS: InsuLIN REG 1unit/0.01ml Soln (100units/ml) SC SCH ×2 (06:36→11:40)
[2016-12-08] MEDS: ACCU-CHEK COMFORT CURVE STRIP VI SCH ×2 (06:36→11:45)
[2016-12-08] MEDS: cloNIDine HCL 0.1 MG TAB PO PRN ×2 (06:59→12:52)
[2016-12-08 07:06] LABS: Albumin 2.7 g/dL (3.4-5.0); BUN/Creatinine Ratio 5.7; Bilirubin, Total 0.3 mg/dL (0.2-1.0); Calcium 9.6 mg/dL (8.5-10.1); Potassium 4.3 mmol/L (3.5-5.1); Total Protein 9.1 g/dL (6.4-8.2)
[2016-12-08] MEDS: Boost Glucose Control 8 Ounces PO SCH ×3 (08:00→18:12)
[2016-12-08] MEDS: hydrALAZINE HCL 25 MG TAB PO PRN (08:01)
[2016-12-08 09:41] LABS: Anisocytosis Slight; Platelet Estimate Adequate
[2016-12-08] MEDS: METOPROLOL TARTRATE 25 MG TAB PO SCH ×2 (09:45→22:40)
[2016-12-08] MEDS: HYDROcodone-ACET 5/325MG TAB PO PRN (09:49)
[2016-12-08] MEDS: FAMOTIDINE 20 MG TAB PO SCH ×2 (09:51→22:37)
[2016-12-08] MEDS: MINOXIDIL 2.5 MG TAB PO SCH (09:52)
[2016-12-08] MEDS: DOCUSATE SOD 100 MG CAP PO PRN (09:52)
[2016-12-08] MEDS: FERROUS SULFATE 325 MG TAB PO SCH ×2 (09:52→18:45)
[2016-12-08] MEDS: OLANZapine 5 MG TAB PO SCH (09:53)
[2016-12-08] MEDS: B-COMPLEX W/ C & FOLIC ACID(NEPHROVITE TAB) PO SCH (09:53)
[2016-12-08] MEDS: MULTIPLE VITAMIN TAB PO SCH (09:53)
[2016-12-08] MEDS ORDERED: NIFEdipine ER 30 MG TAB PO SCH (10:00)
[2016-12-08] MEDS: LABETALOL HCL 5 MG/ML 4ML SYRINGE IV PRN ×2 (11:34→18:50)
[2016-12-08] MEDS ORDERED: MORPHINE SULF INJ 2 MG/ML SYRINGE 1ML IV PRN (15:30)
[2016-12-08] MEDS ORDERED: NIFE60TA59 PO (15:42)
[2016-12-08] MEDS ORDERED: HYDR1TAB97 (15:42)
[2016-12-08] MEDS ORDERED: OLAN10TA29 PO (15:42)
[2016-12-08] MEDS ORDERED: ZOLP10TA6 (15:42)
[2016-12-08] MEDS ORDERED: LABE100T PO (15:42)
[2016-12-08] MEDS ORDERED: CLON0.2T PO (15:42)
[2016-12-08] MEDS: QUEtiapine FUMARATE 100 MG TAB PO SCH (22:37)
[2016-12-08] MEDS: cloNIDine HCL 0.1 MG TAB PO SCH (22:41)
[2016-12-09] MEDS: hydrALAZINE HCL 25 MG TAB PO PRN (05:01)
[2016-12-09 05:23] LABS: BUN/Creatinine Ratio 6.3; Calcium 9.2 mg/dL (8.5-10.1)
[2016-12-09 05:29] LABS: Potassium 5.9 mmol/L (3.5-5.1)
[2016-12-09] MEDS: SODIUM CHLOR 0.9% PF (SALINE LOCK) 10ML VIAL IV SCH ×3 (06:00→21:14)
[2016-12-09] MEDS: cloNIDine HCL 0.1 MG TAB PO SCH ×3 (06:29→21:13)
[2016-12-09] MEDS: HYDROcodone-ACET 5/325MG TAB PO PRN (06:30)
[2016-12-09 08:00] VITALS: BP 159/103
[2016-12-09] MEDS: FERROUS SULFATE 325 MG TAB PO SCH ×2 (08:00→18:08)
[2016-12-09] MEDS: Boost Glucose Control 8 Ounces PO SCH ×3 (08:00→18:08)
[2016-12-09] MEDS ORDERED: HEPARIN 1,000 UNITS/ml 1ML VIAL IV ONE (10:00)
[2016-12-09] MEDS: OLANZapine 5 MG TAB PO SCH (10:00)
[2016-12-09] MEDS ORDERED: HEPARIN SODIUM (PORCINE) 5000 UNITS/ML 1ML VIAL IV ONE ×2 (10:00→10:45)
[2016-12-09] MEDS: METOPROLOL TARTRATE 25 MG TAB PO SCH ×2 (10:00→21:14)
[2016-12-09] MEDS ORDERED: EPOETIN ALFA 10,000 UNIT/1 ML VIAL IV ONE (10:00)
[2016-12-09] MEDS ORDERED: HEPARIN SODIUM (PORCINE) 5000 UNITS/ML 1ML VIAL ONE (11:39)
[2016-12-09 12:00] VITALS: BP 143/110
[2016-12-09] MEDS ORDERED: NIFEdipine ER 30 MG TAB PO ONE (13:00)
[2016-12-09] MEDS ORDERED: ASPI81CH43 PO (14:51)
[2016-12-09] MEDS ORDERED: ZOLP10TA PO (14:51)
[2016-12-09] MEDS: MULTIPLE VITAMIN TAB PO SCH (14:59)
[2016-12-09] MEDS: B-COMPLEX W/ C & FOLIC ACID(NEPHROVITE TAB) PO SCH (14:59)
[2016-12-09] MEDS: MINOXIDIL 2.5 MG TAB PO SCH (14:59)
[2016-12-09] MEDS: FAMOTIDINE 20 MG TAB PO SCH ×2 (14:59→21:14)
[2016-12-09 16:00] VITALS: BP 147/104
[2016-12-09] MEDS: QUEtiapine FUMARATE 100 MG TAB PO SCH (21:13)
[2016-12-09 22:00] VITALS: BP 130/78
[2016-12-10 05:07] VITALS: BP 124/69
[2016-12-10] MEDS: SODIUM CHLOR 0.9% PF (SALINE LOCK) 10ML VIAL IV SCH ×3 (05:33→22:10)
[2016-12-10] MEDS: cloNIDine HCL 0.1 MG TAB PO SCH ×3 (05:34→22:11)
[2016-12-10] MEDS: HYDROcodone-ACET 5/325MG TAB PO PRN ×3 (05:35→23:09)
[2016-12-10 06:57] LABS: Calcium 9.6 mg/dL (8.5-10.1)
[2016-12-10 07:14] LABS: Potassium 5.9 mmol/L (3.5-5.1)
[2016-12-10] MEDS: Boost Glucose Control 8 Ounces PO SCH ×3 (07:47→17:10)
[2016-12-10] MEDS: FERROUS SULFATE 325 MG TAB PO SCH ×2 (07:47→17:10)
[2016-12-10 09:00] VITALS: BP 118/79
[2016-12-10] MEDS: MULTIPLE VITAMIN TAB PO SCH (09:29)
[2016-12-10] MEDS: B-COMPLEX W/ C & FOLIC ACID(NEPHROVITE TAB) PO SCH (09:29)
[2016-12-10] MEDS: NIFEdipine ER 30 MG TAB PO SCH (09:30)
[2016-12-10] MEDS: METOPROLOL TARTRATE 25 MG TAB PO SCH (09:31)
[2016-12-10] MEDS: FAMOTIDINE 20 MG TAB PO SCH ×2 (09:31→22:10)
[2016-12-10] MEDS: OLANZapine 5 MG TAB PO SCH (09:31)
[2016-12-10] MEDS: MINOXIDIL 2.5 MG TAB PO SCH (09:32)
[2016-12-10] MEDS: SODIUM POLYSTYRENE SULF 15GM/60ML SUSP PO SCH ×4 (10:15→13:45)
[2016-12-10 13:00] VITALS: BP 122/88
[2016-12-10 17:00] VITALS: BP 127/81
[2016-12-10] MEDS ORDERED: CALCIUM GLUC 4.65meq/50ml D5AE 50 ML IV ONE (19:45)
[2016-12-10] MEDS ORDERED: InsuLIN REG 1unit/0.01ml Soln (100units/ml) SC ONE (19:45)
[2016-12-10] MEDS ORDERED: SODIUM BICARBONATE 8.4 % INJ 50ML VIAL IV ONE (19:45)
[2016-12-10] MEDS ORDERED: DEXTROSE (50%) 50ML SYRG IV ONE (19:45)
[2016-12-10] MEDS ORDERED: SODIUM BICARBONATE 8.4% INJ 50ML SYRINGE ONE (20:39)
[2016-12-10 22:00] VITALS: BP 142/82
[2016-12-10] MEDS: QUEtiapine FUMARATE 100 MG TAB PO SCH (22:10)
[2016-12-10] MEDS: METOPROLOL TARTRATE 50 MG TAB PO SCH (22:11)
[2016-12-11 02:00] LABS: BUN/Creatinine Ratio 8.5; Calcium 9.6 mg/dL (8.5-10.1)
[2016-12-11 02:04] LABS: Potassium 6.9 mmol/L (3.5-5.1)
[2016-12-11] MEDS ORDERED: InsuLIN REG 1unit/0.01ml Soln (100units/ml) IV ONE (02:15)
[2016-12-11] MEDS ORDERED: DEXTROSE (50%) 50ML SYRG IV ONE (02:15)
[2016-12-11] MEDS ORDERED: SODIUM BICARBONATE 8.4 % INJ 50ML VIAL IV ONE (02:15)
[2016-12-11 05:00] VITALS: BP 125/80
[2016-12-11] MEDS: HYDROcodone-ACET 5/325MG TAB PO PRN (06:08)
[2016-12-11] MEDS: SODIUM CHLOR 0.9% PF (SALINE LOCK) 10ML VIAL IV SCH ×3 (06:08→22:00)
[2016-12-11] MEDS: cloNIDine HCL 0.1 MG TAB PO SCH ×3 (06:08→22:14)
[2016-12-11 07:36] VITALS: BP 138/73
[2016-12-11] MEDS: Boost Glucose Control 8 Ounces PO SCH ×3 (07:43→17:51)
[2016-12-11] MEDS: FERROUS SULFATE 325 MG TAB PO SCH ×2 (08:27→18:15)
[2016-12-11] MEDS: B-COMPLEX W/ C & FOLIC ACID(NEPHROVITE TAB) PO SCH (09:27)
[2016-12-11] MEDS: MULTIPLE VITAMIN TAB PO SCH (09:28)
[2016-12-11] MEDS: NIFEdipine ER 30 MG TAB PO SCH ×2 (09:28→18:16)
[2016-12-11] MEDS: METOPROLOL TARTRATE 50 MG TAB PO SCH ×2 (09:29→22:14)
[2016-12-11] MEDS: OLANZapine 5 MG TAB PO SCH (09:29)
[2016-12-11] MEDS: SODIUM POLYSTYRENE SULF 15GM/60ML SUSP PO SCH ×2 (09:29→22:00)
[2016-12-11] MEDS: SODIUM BICARBONATE 8.4% INJ 50ML SYRINGE IV ONE ×2 (09:30→09:51)
[2016-12-11] MEDS: FAMOTIDINE 20 MG TAB PO SCH ×2 (09:30→22:14)
[2016-12-11] MEDS: InsuLIN REG 1unit/0.01ml Soln (100units/ml) IV ONE ×2 (09:30→09:52)
[2016-12-11] MEDS: DEXTROSE (50%) 50ML SYRG IV ONE ×2 (09:30→09:52)
[2016-12-11] MEDS: CALCIUM GLUC 4.65meq/50ml D5AE 50 ML IV ONE ×2 (09:30→09:53)
[2016-12-11] MEDS ORDERED: SODIUM CHL 0.9% 1000 ML BAG XX ONE (10:15)
[2016-12-11] MEDS ORDERED: EPOETIN ALFA 10,000 UNIT/1 ML VIAL IV ONE (10:15)
[2016-12-11 12:11] VITALS: BP 129/71
[2016-12-11] MEDS ORDERED: CATHFLO ACTIVASE (ALTEPLASE) 2 MG VIAL IV ONE (16:30)
[2016-12-11 17:06] VITALS: BP 143/74
[2016-12-11 17:31] VITALS: BP 135/79
[2016-12-11 22:00] VITALS: BP 143/78
[2016-12-11] MEDS: QUEtiapine FUMARATE 100 MG TAB PO SCH (22:13)
[2016-12-12 05:00] VITALS: BP 142/78
[2016-12-12] MEDS: cloNIDine HCL 0.1 MG TAB PO SCH ×3 (06:11→21:48)
[2016-12-12] MEDS: SODIUM CHLOR 0.9% PF (SALINE LOCK) 10ML VIAL IV SCH ×3 (06:11→21:59)
[2016-12-12] MEDS: FERROUS SULFATE 325 MG TAB PO SCH ×2 (08:00→18:06)
[2016-12-12] MEDS: Boost Glucose Control 8 Ounces PO SCH ×3 (08:00→18:06)
[2016-12-12 08:14] LABS: BUN/Creatinine Ratio 8.5; Calcium 9.8 mg/dL (8.5-10.1)
[2016-12-12 08:36] LABS: Potassium 6.1 mmol/L (3.5-5.1)
[2016-12-12 09:00] VITALS: BP 157/79
[2016-12-12] MEDS: MULTIPLE VITAMIN TAB PO SCH (10:00)
[2016-12-12] MEDS: B-COMPLEX W/ C & FOLIC ACID(NEPHROVITE TAB) PO SCH (10:00)
[2016-12-12] MEDS: FAMOTIDINE 20 MG TAB PO SCH ×2 (10:00→21:47)
[2016-12-12] MEDS: METOPROLOL TARTRATE 50 MG TAB PO SCH ×3 (10:00→21:47)
[2016-12-12] MEDS: SODIUM POLYSTYRENE SULF 15GM/60ML SUSP PO SCH ×2 (10:00→21:52)
[2016-12-12] MEDS ORDERED: SODIUM CHL 0.9% 1000 ML BAG XX ONE (12:00)
[2016-12-12] MEDS ORDERED: EPOETIN ALFA 10,000 UNIT/1 ML VIAL IV ONE (12:00)
[2016-12-12 13:00] VITALS: BP 163/108
[2016-12-12 14:22] VITALS: BP 171/115
[2016-12-12] MEDS: OLANZapine 5 MG TAB PO SCH (14:39)
[2016-12-12] MEDS: hydrALAZINE HCL 25 MG TAB PO PRN ×2 (14:40→18:07)
[2016-12-12 17:00] VITALS: BP 154/106
[2016-12-12] MEDS: NIFEdipine ER 30 MG TAB PO SCH (18:06)
[2016-12-12 21:16] VITALS: BP 177/95
[2016-12-12] MEDS: DOCUSATE SOD 100 MG CAP PO PRN (21:45)
[2016-12-12] MEDS: QUEtiapine FUMARATE 100 MG TAB PO SCH (21:46)
[2016-12-12] MEDS: HYDROcodone-ACET 5/325MG TAB PO PRN (21:59)
[2016-12-13 05:28] VITALS: BP 142/91
[2016-12-13] MEDS: cloNIDine HCL 0.1 MG TAB PO SCH ×4 (05:54→21:50)
[2016-12-13] MEDS: SODIUM CHLOR 0.9% PF (SALINE LOCK) 10ML VIAL IV SCH ×3 (05:54→21:54)
[2016-12-13 07:15] LABS: Basophils # (auto) 0.1 uL; Basophils % (auto) 1.1 % (0.0-2.0); Eosinophils # (auto) 0.2 uL; Eosinophils % (auto) 3.2 % (0.0-7.0); Hematocrit 28.9 % (41.0-53.0); Hemoglobin 9.3 g/dL (13.5-17.5); Lymphocytes % (auto) 27.8 % (10.0-50.0); Mean Corpuscular Hemoglobin 27.8 pg (28.0-32.0); Mean Corpuscular Volume 86.8 fL (80.0-100.0); Mean Platelet Volume 7.8 fL (6.9-10.8); Monocytes # (auto) 1.2 uL; Monocytes % (auto) 16.5 % (0.0-12.0); Neutrophils # (auto) 3.8 uL; Neutrophils % (auto) 51.4 % (37.0-80.0); Nucleated Red Blood Cells % 0.1 %; Platelet Count (auto) 406 10^3/uL (140-450); Red Cell Distribution Width 19.5 % (11.8-14.3); White Blood Cell 7.4 10^3/uL (4.4-10.8)
[2016-12-13 07:54] LABS: BUN/Creatinine Ratio 8.6; Calcium 9.4 mg/dL (8.5-10.1)
[2016-12-13 08:07] VITALS: BP 155/85
[2016-12-13 08:16] LABS: Potassium 5.9 mmol/L (3.5-5.1)
[2016-12-13] MEDS: FERROUS SULFATE 325 MG TAB PO SCH ×2 (09:34→17:45)
[2016-12-13] MEDS: Boost Glucose Control 8 Ounces PO SCH ×3 (09:34→17:46)
[2016-12-13] MEDS: MULTIPLE VITAMIN TAB PO SCH (09:35)
[2016-12-13] MEDS: FAMOTIDINE 20 MG TAB PO SCH ×2 (09:35→21:48)
[2016-12-13] MEDS: B-COMPLEX W/ C & FOLIC ACID(NEPHROVITE TAB) PO SCH (09:35)
[2016-12-13] MEDS: OLANZapine 5 MG TAB PO SCH (09:35)
[2016-12-13] MEDS: SODIUM POLYSTYRENE SULF 15GM/60ML SUSP PO SCH ×2 (09:35→21:54)
[2016-12-13] MEDS: METOPROLOL TARTRATE 50 MG TAB PO SCH (09:35)
[2016-12-13] MEDS: hydrALAZINE HCL 25 MG TAB PO PRN ×2 (09:38→17:46)
[2016-12-13] MEDS ORDERED: EPOETIN ALFA 10,000 UNIT/1 ML VIAL IV ONE (10:45)
[2016-12-13] MEDS ORDERED: SODIUM CHL 0.9% 1000 ML BAG XX ONE (10:45)
[2016-12-13 11:52] VITALS: BP 131/104
[2016-12-13 16:40] VITALS: BP 189/124
[2016-12-13] MEDS: NIFEdipine ER 30 MG TAB PO SCH (17:46)
[2016-12-13] MEDS ORDERED: LABETALOL HCL 5 MG/ML ML 20ML VIAL IV PRN (19:00)
[2016-12-13] MEDS ORDERED: LABE100T PO (20:02)
[2016-12-13] MEDS ORDERED: CLON0.2T PO (20:02)
[2016-12-13] MEDS ORDERED: NIFE60TA59 PO (20:02)
[2016-12-13] MEDS ORDERED: HYDR25TA35 PO (20:02)
[2016-12-13] MEDS ORDERED: LABETALOL HCL 200 MG TAB PO ONE (20:30)
[2016-12-13 21:32] VITALS: BP 155/107
[2016-12-13] MEDS: QUEtiapine FUMARATE 100 MG TAB PO SCH (21:49)
[2016-12-13] MEDS: DOCUSATE SOD 100 MG CAP PO PRN (21:49)
[2016-12-13] MEDS: HYDROcodone-ACET 5/325MG TAB PO PRN (21:52)
[2016-12-14 05:00] VITALS: BP 140/95
[2016-12-14] MEDS: cloNIDine HCL 0.1 MG TAB PO SCH ×2 (05:50→14:34)
[2016-12-14] MEDS: LABETALOL HCL 200 MG TAB PO SCH ×2 (05:51→14:36)
[2016-12-14] MEDS: HYDROcodone-ACET 5/325MG TAB PO PRN ×3 (05:52→16:04)
[2016-12-14] MEDS: SODIUM CHLOR 0.9% PF (SALINE LOCK) 10ML VIAL IV SCH (05:57)
[2016-12-14] MEDS: FERROUS SULFATE 325 MG TAB PO SCH (08:00)
[2016-12-14] MEDS: Boost Glucose Control 8 Ounces PO SCH ×2 (08:00→12:00)
[2016-12-14 09:00] VITALS: BP 143/90
[2016-12-14] MEDS: OLANZapine 5 MG TAB PO SCH (09:58)
[2016-12-14] MEDS: B-COMPLEX W/ C & FOLIC ACID(NEPHROVITE TAB) PO SCH (09:58)
[2016-12-14] MEDS: FAMOTIDINE 20 MG TAB PO SCH (09:59)
[2016-12-14] MEDS: MULTIPLE VITAMIN TAB PO SCH (09:59)
[2016-12-14] MEDS: SODIUM POLYSTYRENE SULF 15GM/60ML SUSP PO SCH (10:00)
[2016-12-14 13:00] VITALS: BP 157/84
== END 2016-12-14 16:40 | disposition home health service (06) | DRG 199 ==
LOC: EDBD 05:10 → ER 05:15 → OVERFLOW 05:16 → DOU IN ICU 12-08 20:51 → TELE-CENTR 12-09 18:18
PROVIDERS: ADMIT Internal Medicine; ATTEND Internal Medicine
PROC: 5A1D70Z Performance of Urinary Filtration, Intermittent, Less than 6 Hours Per Day (ICD-10-PCS; principal; 2016-12-07)
PROC: 5A1D70Z Performance of Urinary Filtration, Intermittent, Less than 6 Hours Per Day (ICD-10-PCS; 2016-12-09)
PROC: 5A1D70Z Performance of Urinary Filtration, Intermittent, Less than 6 Hours Per Day (ICD-10-PCS; 2016-12-11)
PROC: 5A1D70Z Performance of Urinary Filtration, Intermittent, Less than 6 Hours Per Day (ICD-10-PCS; 2016-12-12)
PROC: 5A1D70Z Performance of Urinary Filtration, Intermittent, Less than 6 Hours Per Day (ICD-10-PCS; 2016-12-13)
PROC: 5A1D70Z Performance of Urinary Filtration, Intermittent, Less than 6 Hours Per Day (ICD-10-PCS; 2016-12-14)
DX: I16.0 Hypertensive urgency (principal); E11.21 Type 2 diabetes mellitus with diabetic nephropathy; N18.6 End stage renal disease; E44.0 Moderate protein-calorie malnutrition; I13.2 Hypertensive heart and chronic kidney disease with heart failure and with stage 5 chronic kidney disease, or end stage renal disease; E87.5 Hyperkalemia; E11.22 Type 2 diabetes mellitus with diabetic chronic kidney disease; I50.9 Heart failure, unspecified; D63.8 Anemia in other chronic diseases classified elsewhere; F31.9 Bipolar disorder, unspecified; F20.9 Schizophrenia, unspecified; F22 Delusional disorders; G40.909 Epilepsy, unspecified, not intractable, without status epilepticus; E83.39 Other disorders of phosphorus metabolism; B19.20 Unspecified viral hepatitis C without hepatic coma; Z99.2 Dependence on renal dialysis; Z68.23 Body mass index [BMI] 23.0-23.9, adult; Z91.14 Patient's other noncompliance with medication regimen; Z91.19 Patient's noncompliance with other medical treatment and regimen; Z83.3 Family history of diabetes mellitus
CPT/HCPCS: 36415; 80048; 80053; 82962; 83036; 84132; 85007; 85025; 85027; 90935; 93005; 96365; 96375; G0378; J0610; J0885; J1642; J1815

== ENCOUNTER 2017-01-25 12:46 | Inpatient (IN) | payer MEDICAID ==
[~2017-01-25] VITALS: Ht 177.8 cm; Wt 80.4 kg
[~2017-01-25 12:46] MED LIST changes: +CLON0.2T PO; -FERR325T PO; +GAB100C PO; +HALO1TAB17 PO; +HYDR1TAB97; +KAY60LQ PO; +LABE100T PO; -METO25TA5 PO; -MIN25T PO; -NEPVITT PO; +OLAN10TA29 PO; -OLAN20TA13 PO; -QUET100T46 PO; +ZOLP10TA PO
[2017-01-25 13:07] LABS: Basophils # (auto) 0.1 uL; Basophils % (auto) 1.2 % (0.0-2.0); Eosinophils # (auto) 0.2 uL; Eosinophils % (auto) 2.1 % (0.0-7.0); Hematocrit 28.1 % (41.0-53.0); Lymphocytes # (auto) 1.3 uL; Lymphocytes % (auto) 13.3 % (10.0-50.0); Mean Corpuscular Hemoglobin 27.6 pg (28.0-32.0); Mean Corpuscular Hgb Conc. 32.1 g/dL (32.0-36.0); Mean Corpuscular Volume 85.9 fL (80.0-100.0); Mean Platelet Volume 7.3 fL (6.9-10.8); Monocytes # (auto) 1.2 uL; Monocytes % (auto) 13.1 % (0.0-12.0); Neutrophils # (auto) 6.6 uL; Neutrophils % (auto) 70.3 % (37.0-80.0); Platelet Count (auto) 264 10^3/uL (140-450); White Blood Cell 9.4 10^3/uL (4.4-10.8)
[2017-01-25 13:40] LABS: Albumin 2.8 g/dL (3.4-5.0); BUN/Creatinine Ratio 8.5; Bilirubin, Total 0.4 mg/dL (0.2-1.0); Calcium 9.1 mg/dL (8.5-10.1); Magnesium 2.6 mg/dL (1.6-2.6); Potassium 4.9 mmol/L (3.5-5.1); Total Protein 8.6 g/dL (6.4-8.2)
[2017-01-25 14:03] LABS: INR 1.09 (0.9-1.15); Partial Thromboplastin Time 29.4 sec (22.64-33.71); Prothrombin Time 11.9 sec (9.37-12.3)
[2017-01-25 14:32] LABS: B-Type Natriuretic Peptide > 5000.00 pg/mL (0-100)
[2017-01-25 14:46] LABS: Temperature: 21.7 C (20.0-25.0)
[2017-01-25] MEDS ORDERED: ONDANSETRON HCL 4 MG/2 ML VIAL IV ONE (15:15)
[2017-01-25] MEDS ORDERED: MORPHINE SULF INJ 2 MG/ML SYRINGE 1ML IV ONE (15:15)
[2017-01-25] MEDS ORDERED: ASPirin-EC 81 mg tab PO ONE (15:15)
[2017-01-25] MEDS ORDERED: MORPHINE SULF INJ 2 MG/ML SYRINGE 1ML IV PRN ×2 (15:30)
[2017-01-25] MEDS ORDERED: LORazepam 0.5 MG TAB PO PRN (15:30)
[2017-01-25] MEDS ORDERED: DEXTROSE (50%) 50ML SYRG IV PRN (15:30)
[2017-01-25] MEDS ORDERED: ACETAMINOPHEN 500 MG TAB PO PRN (15:30)
[2017-01-25] MEDS ORDERED: HALOPERIDOL 1 MG TAB PO PRN (15:30)
[2017-01-25] MEDS ORDERED: NITROGLYCERIN 0.4 MG SL TAB SL PRN (15:30)
[2017-01-25] MEDS ORDERED: LACTULOSE 20Gm/30ML SOLN PO PRN (15:30)
[2017-01-25] MEDS ORDERED: METOPROLOL TARTRATE 25 MG TAB PO ONE (16:30)
[2017-01-25] MEDS ORDERED: LABETALOL HCL 200 MG TAB PO ONE (16:40)
[2017-01-25] MEDS ORDERED: NIFEdipine ER 30 MG TAB PO ONE (16:40)
[2017-01-25] MEDS ORDERED: cloNIDine HCL 0.1 MG TAB PO ONE (16:40)
[2017-01-25] MEDS: FAMOTIDINE 20 MG TAB PO SCH (16:50)
[2017-01-25] MEDS ORDERED: ACCU-CHEK COMFORT CURVE STRIP VI SCH (17:00)
[2017-01-25] MEDS ORDERED: InsuLIN REG 1unit/0.01ml Soln (100units/ml) SC SCH (17:00)
[2017-01-25] MEDS: GABAPENTIN 100 MG CAP PO SCH (18:59)
[2017-01-25] MEDS: FUROSEMIDE 40 MG/4 ML VIAL IV SCH (18:59)
[2017-01-25] MEDS: hydrALAZINE HCL 25 MG TAB PO PRN (19:01)
[2017-01-25] MEDS: NICARDIPINE 25MG/250ML BAG KIT 250 ML IV SCH (20:41)
[2017-01-25] MEDS: SODIUM CHLOR 0.9% PF (SALINE LOCK) 10ML VIAL IV SCH (21:40)
[2017-01-25] MEDS: cloNIDine HCL 0.1 MG TAB PO SCH (21:51)
[2017-01-25] MEDS: LABETALOL HCL 200 MG TAB PO SCH (21:52)
[2017-01-25] MEDS: SODIUM POLYSTYRENE SULF 15GM/60ML SUSP PO SCH (21:53)
[2017-01-25] MEDS ORDERED: ZOLPIDEM TARTRATE 5 MG TAB PO PRN (22:00)
[2017-01-25] MEDS ORDERED: CARVEDILOL 3.125 MG TAB PO SCH (22:00)
[2017-01-26] MEDS: NICARDIPINE 25MG/250ML BAG KIT 250 ML IV SCH ×5 (00:59→22:10)
[2017-01-26] MEDS: hydrALAZINE HCL 25 MG TAB PO PRN (01:16)
[2017-01-26 05:58] LABS: Basophils # (auto) 0.1 uL; Basophils % (auto) 1.1 % (0.0-2.0); Eosinophils # (auto) 0.2 uL; Eosinophils % (auto) 2.4 % (0.0-7.0); Hematocrit 26.8 % (41.0-53.0); Hemoglobin 8.6 g/dL (13.5-17.5); Lymphocytes # (auto) 1.8 uL; Lymphocytes % (auto) 19.9 % (10.0-50.0); Mean Corpuscular Hemoglobin 27.5 pg (28.0-32.0); Mean Corpuscular Hgb Conc. 31.9 g/dL (32.0-36.0); Monocytes # (auto) 1.3 uL; Monocytes % (auto) 14.8 % (0.0-12.0); Neutrophils # (auto) 5.5 uL; Neutrophils % (auto) 61.8 % (37.0-80.0); Platelet Count (auto) 228 10^3/uL (140-450); Red Cell Distribution Width 18.5 % (11.8-14.3)
[2017-01-26 06:11] LABS: B-Type Natriuretic Peptide > 5000.00 pg/mL (0-100)
[2017-01-26] MEDS: SODIUM CHLOR 0.9% PF (SALINE LOCK) 10ML VIAL IV SCH ×3 (06:11→22:37)
[2017-01-26] MEDS: FUROSEMIDE 40 MG/4 ML VIAL IV SCH ×2 (06:11→18:04)
[2017-01-26] MEDS: cloNIDine HCL 0.1 MG TAB PO SCH ×3 (06:12→16:18)
[2017-01-26 06:13] LABS: Albumin 2.7 g/dL (3.4-5.0); BUN/Creatinine Ratio 9.2; Bilirubin, Total 0.3 mg/dL (0.2-1.0); Calcium 8.7 mg/dL (8.5-10.1); Total Protein 8.3 g/dL (6.4-8.2)
[2017-01-26] MEDS: LABETALOL HCL 200 MG TAB PO SCH ×3 (06:13→16:18)
[2017-01-26 06:17] LABS: Temperature: 21.9 C (20.0-25.0)
[2017-01-26 06:28] LABS: Potassium 5.7 mmol/L (3.5-5.1)
[2017-01-26] MEDS ORDERED: SODIUM CHL 0.9% 1000 ML BAG XX ONE (08:30)
[2017-01-26] MEDS ORDERED: EPOETIN ALFA 10,000 UNIT/1 ML VIAL IV ONE (08:30)
[2017-01-26] MEDS ORDERED: NITROGLYCERIN 0.2MG/HR TOPICAL PATCH TD SCH (10:00)
[2017-01-26] MEDS ORDERED: ASPirin 81 mg TAB PO SCH (10:00)
[2017-01-26] MEDS: SODIUM POLYSTYRENE SULF 15GM/60ML SUSP PO SCH ×2 (10:00→22:36)
[2017-01-26] MEDS: ENOXAPARIN SOD 30 MG/0.3 ML SYRINGE SC SCH (12:55)
[2017-01-26] MEDS: FAMOTIDINE 20 MG TAB PO SCH (12:55)
[2017-01-26] MEDS: NIFEdipine ER 30 MG TAB PO SCH (12:55)
[2017-01-26] MEDS: OLANZapine 5 MG TAB PO SCH (12:55)
[2017-01-26] MEDS: ASPirin 81 mg TAB PO SCH (12:55)
[2017-01-26] MEDS: NITROGLYCERIN 0.2MG/HR TOPICAL PATCH TD SCH (12:56)
[2017-01-26 14:08] VITALS: BP 149/96
[2017-01-26 15:00] VITALS: BP 138/69
[2017-01-26 17:00] VITALS: BP 138/69
[2017-01-26] MEDS: GABAPENTIN 100 MG CAP PO SCH (18:04)
[2017-01-26 21:44] VITALS: BP 131/73
[2017-01-27] MEDS: NICARDIPINE 25MG/250ML BAG KIT 250 ML IV SCH (02:33)
[2017-01-27 05:01] VITALS: BP 122/87
[2017-01-27 05:39] LABS: Basophils # (auto) 0.1 uL; Basophils % (auto) 1.5 % (0.0-2.0); Eosinophils # (auto) 0.3 uL; Eosinophils % (auto) 3.6 % (0.0-7.0); Hematocrit 26.9 % (41.0-53.0); Hemoglobin 8.6 g/dL (13.5-17.5); Lymphocytes # (auto) 1.5 uL; Lymphocytes % (auto) 21.1 % (10.0-50.0); Mean Corpuscular Hemoglobin 27.9 pg (28.0-32.0); Mean Corpuscular Hgb Conc. 32.1 g/dL (32.0-36.0); Mean Corpuscular Volume 86.7 fL (80.0-100.0); Mean Platelet Volume 8.1 fL (6.9-10.8); Monocytes # (auto) 1.1 uL; Monocytes % (auto) 14.9 % (0.0-12.0); Neutrophils # (auto) 4.2 uL; Neutrophils % (auto) 58.9 % (37.0-80.0); Platelet Count (auto) 213 10^3/uL (140-450); Red Cell Distribution Width 18.6 % (11.8-14.3); White Blood Cell 7.1 10^3/uL (4.4-10.8)
[2017-01-27 06:01] LABS: BUN/Creatinine Ratio 8.4; Calcium 8.6 mg/dL (8.5-10.1); Potassium 5.3 mmol/L (3.5-5.1)
[2017-01-27] MEDS: SODIUM CHLOR 0.9% PF (SALINE LOCK) 10ML VIAL IV SCH ×3 (06:37→22:07)
[2017-01-27] MEDS: FUROSEMIDE 40 MG/4 ML VIAL IV SCH (06:37)
[2017-01-27] MEDS: cloNIDine HCL 0.1 MG TAB PO SCH ×3 (06:37→22:08)
[2017-01-27] MEDS: LABETALOL HCL 200 MG TAB PO SCH ×3 (06:38→22:09)
[2017-01-27 07:49] VITALS: BP 145/95
[2017-01-27] MEDS ORDERED: SODIUM CHL 0.9% 1000 ML BAG XX ONE (09:45)
[2017-01-27] MEDS ORDERED: EPOETIN ALFA 10,000 UNIT/1 ML VIAL IV ONE (09:45)
[2017-01-27] MEDS: NITROGLYCERIN 0.2MG/HR TOPICAL PATCH TD SCH (10:28)
[2017-01-27] MEDS: FAMOTIDINE 20 MG TAB PO SCH (10:30)
[2017-01-27] MEDS: ASPirin 81 mg TAB PO SCH (10:30)
[2017-01-27] MEDS: NIFEdipine ER 30 MG TAB PO SCH (10:31)
[2017-01-27] MEDS: SODIUM POLYSTYRENE SULF 15GM/60ML SUSP PO SCH ×2 (10:31→22:09)
[2017-01-27] MEDS: OLANZapine 5 MG TAB PO SCH (10:32)
[2017-01-27] MEDS: ENOXAPARIN SOD 30 MG/0.3 ML SYRINGE SC SCH ×2 (10:32→10:40)
[2017-01-27] MEDS: SEVELAMER 800 MG TAB PO SCH ×2 (12:00→18:36)
[2017-01-27 12:07] VITALS: BP 149/79
[2017-01-27] MEDS: HYDROcodone-ACET 5/325MG TAB PO PRN (16:52)
[2017-01-27 17:02] VITALS: BP 163/104
[2017-01-27] MEDS: GABAPENTIN 100 MG CAP PO SCH (18:36)
[2017-01-27] MEDS: hydrALAZINE HCL 25 MG TAB PO PRN (18:37)
[2017-01-27 22:00] VITALS: BP 151/93
[2017-01-28] VITALS (11 sets, daily range): BP systolic 128–187; BP diastolic 70–138
[2017-01-28] MEDS: SODIUM CHLOR 0.9% PF (SALINE LOCK) 10ML VIAL IV SCH ×3 (05:00→22:00)
[2017-01-28] MEDS: hydrALAZINE HCL 25 MG TAB PO PRN ×2 (05:01→05:11)
[2017-01-28] MEDS: HYDROcodone-ACET 5/325MG TAB PO PRN ×2 (05:04→16:59)
[2017-01-28] MEDS: LABETALOL HCL 200 MG TAB PO SCH ×3 (05:40→23:14)
[2017-01-28] MEDS: cloNIDine HCL 0.1 MG TAB PO SCH ×3 (06:25→23:14)
[2017-01-28 06:32] LABS: BUN/Creatinine Ratio 8.9; Calcium 8.8 mg/dL (8.5-10.1); Potassium 5.4 mmol/L (3.5-5.1)
[2017-01-28] MEDS: SEVELAMER 800 MG TAB PO SCH ×3 (08:46→17:58)
[2017-01-28] MEDS: FAMOTIDINE 20 MG TAB PO SCH (11:10)
[2017-01-28] MEDS: NITROGLYCERIN 0.2MG/HR TOPICAL PATCH TD SCH (11:10)
[2017-01-28] MEDS: OLANZapine 5 MG TAB PO SCH (11:11)
[2017-01-28] MEDS: NIFEdipine ER 30 MG TAB PO SCH (11:12)
[2017-01-28] MEDS: SODIUM POLYSTYRENE SULF 15GM/60ML SUSP PO SCH ×2 (11:12→23:15)
[2017-01-28] MEDS: ASPirin 81 mg TAB PO SCH (11:12)
[2017-01-28] MEDS ORDERED: hydrALAZINE HCL 20 MG/ML VL IV ONE (11:30)
[2017-01-28] MEDS: GABAPENTIN 100 MG CAP PO SCH (17:58)
[2017-01-29] MEDS: hydrALAZINE HCL 25 MG TAB PO PRN (05:10)
[2017-01-29 05:38] VITALS: BP 163/54
[2017-01-29 05:57] LABS: Basophils # (auto) 0.1 uL; Eosinophils # (auto) 0.2 uL; Hemoglobin 7.9 g/dL (13.5-17.5); Monocytes # (auto) 1.1 uL; Neutrophils # (auto) 3.8 uL; Nucleated Red Blood Cells % 0.1 %
[2017-01-29] MEDS: SODIUM CHLOR 0.9% PF (SALINE LOCK) 10ML VIAL IV SCH ×3 (06:00→22:13)
[2017-01-29 06:01] LABS: Basophils % (auto) 1.3 % (0.0-2.0); Eosinophils % (auto) 3.3 % (0.0-7.0); Hematocrit 24.5 % (41.0-53.0); Lymphocytes # (auto) 1.3 uL; Lymphocytes % (auto) 20.5 % (10.0-50.0); Mean Corpuscular Hgb Conc. 32.3 g/dL (32.0-36.0); Mean Corpuscular Volume 86.7 fL (80.0-100.0); Mean Platelet Volume 8.2 fL (6.9-10.8); Monocytes % (auto) 16.8 % (0.0-12.0); Neutrophils % (auto) 58.1 % (37.0-80.0); Platelet Count (auto) 207 10^3/uL (140-450); Red Cell Distribution Width 18.2 % (11.8-14.3); White Blood Cell 6.5 10^3/uL (4.4-10.8)
[2017-01-29] MEDS: cloNIDine HCL 0.1 MG TAB PO SCH ×3 (06:32→22:11)
[2017-01-29 06:33] LABS: BUN/Creatinine Ratio 9.3; Calcium 8.8 mg/dL (8.5-10.1); Magnesium 2.4 mg/dL (1.6-2.6); Phosphorus 7.9 mg/dL (2.5-4.90)
[2017-01-29] MEDS: LABETALOL HCL 200 MG TAB PO SCH ×3 (06:33→22:13)
[2017-01-29 08:00] VITALS: BP 199/139
[2017-01-29] MEDS: SEVELAMER 800 MG TAB PO SCH ×4 (08:08→18:27)
[2017-01-29] MEDS: hydrALAZINE HCL 20 MG/ML VL IV PRN ×2 (08:51→13:41)
[2017-01-29 09:18] VITALS: BP 199/136
[2017-01-29] MEDS ORDERED: SODIUM CHL 0.9% 1000 ML BAG XX ONE (09:45)
[2017-01-29] MEDS ORDERED: EPOETIN ALFA 10,000 UNIT/1 ML VIAL IV ONE (09:45)
[2017-01-29] MEDS: ENOXAPARIN SOD 30 MG/0.3 ML SYRINGE SC SCH ×2 (10:00→10:17)
[2017-01-29] MEDS: SODIUM POLYSTYRENE SULF 15GM/60ML SUSP PO SCH ×3 (10:15→14:00)
[2017-01-29] MEDS: FAMOTIDINE 20 MG TAB PO SCH (10:15)
[2017-01-29] MEDS: NITROGLYCERIN 0.2MG/HR TOPICAL PATCH TD SCH (10:16)
[2017-01-29] MEDS: ASPirin 81 mg TAB PO SCH (10:16)
[2017-01-29] MEDS: OLANZapine 5 MG TAB PO SCH (10:16)
[2017-01-29] MEDS: NIFEdipine ER 30 MG TAB PO SCH (10:17)
[2017-01-29 13:00] VITALS: BP 165/109
[2017-01-29] MEDS: CALCIUM GLUC 4.65meq/50ml D5AE 50 ML IV ONE ×2 (13:00→15:26)
[2017-01-29 16:17] LABS: BUN/Creatinine Ratio 9.9; Calcium 8.8 mg/dL (8.5-10.1)
[2017-01-29 16:27] LABS: Potassium 5.8 mmol/L (3.5-5.1)
[2017-01-29 17:26] VITALS: BP 142/84
[2017-01-29] MEDS: GABAPENTIN 100 MG CAP PO SCH (18:27)
[2017-01-29 22:00] VITALS: BP 143/88
[2017-01-30 05:00] VITALS: BP 142/83
[2017-01-30 05:06] LABS: Basophils # (auto) 0.1 uL; Mean Corpuscular Hgb Conc. 32.1 g/dL (32.0-36.0); Neutrophils # (auto) 3.1 uL; Nucleated Red Blood Cells % 0.1 %; Red Cell Distribution Width 18.4 % (11.8-14.3)
[2017-01-30 05:09] LABS: Basophils % (auto) 1.1 % (0.0-2.0); Eosinophils # (auto) 0.2 uL; Eosinophils % (auto) 3.9 % (0.0-7.0); Hematocrit 24.8 % (41.0-53.0); Lymphocytes # (auto) 1.8 uL; Lymphocytes % (auto) 28.9 % (10.0-50.0); Mean Corpuscular Hemoglobin 27.7 pg (28.0-32.0); Mean Corpuscular Volume 86.3 fL (80.0-100.0); Mean Platelet Volume 8.1 fL (6.9-10.8); Monocytes % (auto) 15.7 % (0.0-12.0); Neutrophils % (auto) 50.4 % (37.0-80.0); Platelet Count (auto) 200 10^3/uL (140-450); White Blood Cell 6.1 10^3/uL (4.4-10.8)
[2017-01-30 05:39] LABS: BUN/Creatinine Ratio 9.7; Potassium 6.7 mmol/L (3.5-5.1)
[2017-01-30] MEDS: SODIUM CHLOR 0.9% PF (SALINE LOCK) 10ML VIAL IV SCH (06:00)
[2017-01-30] MEDS ORDERED: InsuLIN REG 1unit/0.01ml Soln (100units/ml) IV ONE (06:15)
[2017-01-30] MEDS ORDERED: DEXTROSE (50%) 50ML SYRG IV ONE (06:15)
[2017-01-30] MEDS ORDERED: CALCIUM GLUC 4.65meq/50ml D5AE 50 ML IV ONE ×2 (06:45→07:08)
[2017-01-30] MEDS: cloNIDine HCL 0.1 MG TAB PO SCH (06:56)
[2017-01-30] MEDS: LABETALOL HCL 200 MG TAB PO SCH (06:57)
[2017-01-30 08:00] VITALS: BP 143/95
[2017-01-30] MEDS ORDERED: EPOETIN ALFA 10,000 UNIT/1 ML VIAL IV ONE (09:00)
[2017-01-30] MEDS: SEVELAMER 800 MG TAB PO SCH (09:15)
[2017-01-30 09:18] VITALS: BP 143/95
== END 2017-01-30 13:00 | disposition left against medical advice (07) | DRG 194 ==
LOC: EDBD 12:46 → ER 12:46 → TELE 12:47 → TELE-CENTR 01-26 16:48
PROVIDERS: ADMIT Internal Medicine; ATTEND Nurse Practitioner Acute Care
PROC: 5A1D70Z Performance of Urinary Filtration, Intermittent, Less than 6 Hours Per Day (ICD-10-PCS; principal; 2017-01-26)
PROC: 5A1D70Z Performance of Urinary Filtration, Intermittent, Less than 6 Hours Per Day (ICD-10-PCS; 2017-01-28)
DX: I13.2 Hypertensive heart and chronic kidney disease with heart failure and with stage 5 chronic kidney disease, or end stage renal disease (principal); N18.6 End stage renal disease; E11.22 Type 2 diabetes mellitus with diabetic chronic kidney disease; N25.81 Secondary hyperparathyroidism of renal origin; I50.43 Acute on chronic combined systolic (congestive) and diastolic (congestive) heart failure; D63.8 Anemia in other chronic diseases classified elsewhere; E87.5 Hyperkalemia; F20.9 Schizophrenia, unspecified; F31.9 Bipolar disorder, unspecified; I16.1 Hypertensive emergency; F41.9 Anxiety disorder, unspecified; E44.1 Mild protein-calorie malnutrition; Z68.25 Body mass index [BMI] 25.0-25.9, adult; Z82.49 Family history of ischemic heart disease and other diseases of the circulatory system; Z83.3 Family history of diabetes mellitus; Z91.11 Patient's noncompliance with dietary regimen; Z91.15 Patient's noncompliance with renal dialysis; Z91.19 Patient's noncompliance with other medical treatment and regimen
CPT/HCPCS: 36415; 71010; 80048; 80053; 80061; 82550; 82962; 83036; 83735; 83880; 84100; 84443; 84484; 85025; 85379; 85610; 85652; 85730; 86141; 90935; 93005; 94761; 96374; 96375; J0610; J0885; J1642; J1815; J2405

== ENCOUNTER 2017-02-16 12:45 | Emergency (ER) | payer MEDICAID ==
[~2017-02-16] VITALS: Ht 172.7 cm; Wt 81.6 kg
[2017-02-16] MEDS ORDERED: ONDANSETRON HCL 4 MG/2 ML VIAL IV ONE (15:00)
[2017-02-16 15:10] LABS: Hematocrit 29.7 % (41.0-53.0); Hemoglobin 9.6 g/dL (13.5-17.5); Mean Corpuscular Hemoglobin 27.4 pg (28.0-32.0); Mean Corpuscular Hgb Conc. 32.4 g/dL (32.0-36.0); Mean Corpuscular Volume 84.7 fL (80.0-100.0); Mean Platelet Volume 7.9 fL (6.9-10.8); Platelet Count (auto) 295 10^3/uL (140-450); Red Cell Distribution Width 17.7 % (11.8-14.3); White Blood Cell 6.3 10^3/uL (4.4-10.8)
[2017-02-16 15:25] LABS: Metamyelocytes % 0; Myelocytes % 0; Promyelocytes % 0; Reactive Lymphocytes 0
[2017-02-16 15:31] LABS: Albumin 3.1 g/dL (3.4-5.0); BUN/Creatinine Ratio 6.2; Bilirubin, Total 0.3 mg/dL (0.2-1.0); Calcium 9.4 mg/dL (8.5-10.1); Total Protein 9.2 g/dL (6.4-8.2)
[2017-02-16 15:48] LABS: Potassium 5.6 mmol/L (3.5-5.1)
[2017-02-16] MEDS ORDERED: DEXTROSE (50%) 50ML SYRG IV ONE (16:30)
[2017-02-16] MEDS ORDERED: SODIUM BICARBONATE 8.4 % INJ 50ML VIAL IV ONE (16:30)
[2017-02-16] MEDS ORDERED: InsuLIN REG 1unit/0.01ml Soln (100units/ml) IV ONE (16:30)
[2017-02-16] MEDS ORDERED: CALCIUM GLUC 4.65meq/50ml D5AE 50 ML IV ONE (16:30)
[2017-02-16 16:42] LABS: Anisocytosis Moderate; Platelet Estimate Adequate
[2017-02-16 17:28] VITALS: BP 184/106
== END 2017-02-16 18:07 | disposition home or self-care (01) ==
LOC: EDBD 12:45 → ER 12:56
DX: N18.6 End stage renal disease (principal); I12.0 Hypertensive chronic kidney disease with stage 5 chronic kidney disease or end stage renal disease; E11.22 Type 2 diabetes mellitus with diabetic chronic kidney disease; E87.5 Hyperkalemia; Z99.2 Dependence on renal dialysis
CPT/HCPCS: 36415; 80053; 83735; 85007; 85027; 94761

== ENCOUNTER 2017-03-03 17:49 | Inpatient (IN) | payer MEDICAID ==
[~2017-03-03] VITALS: Ht 177.8 cm; Wt 83.2 kg
[2017-03-03] MEDS ORDERED: cefTRIAXone SOD 1,000 MG VL IM ONE (19:30)
[2017-03-03] MEDS ORDERED: cefTRIAXone 1GM/10ml IVPUSH 10 ML IV ONE (19:45)
[2017-03-03] MEDS ORDERED: cloNIDine HCL 0.1 MG TAB PO ONE (21:15)
[2017-03-03 21:17] LABS: Basophils # (auto) 0.2 uL; Basophils % (auto) 1.8 % (0.0-2.0); Eosinophils # (auto) 0.4 uL; Eosinophils % (auto) 4.5 % (0.0-7.0); Hematocrit 27.2 % (41.0-53.0); Hemoglobin 8.6 g/dL (13.5-17.5); Lymphocytes % (auto) 22.4 % (10.0-50.0); Mean Corpuscular Hgb Conc. 31.7 g/dL (32.0-36.0); Mean Corpuscular Volume 85.1 fL (80.0-100.0); Monocytes # (auto) 0.9 uL; Monocytes % (auto) 9.5 % (0.0-12.0); Neutrophils # (auto) 5.6 uL; Neutrophils % (auto) 61.8 % (37.0-80.0); Nucleated Red Blood Cells % 0.2 %; Platelet Count (auto) 332 10^3/uL (140-450); Red Cell Distribution Width 17.7 % (11.8-14.3); White Blood Cell 9.1 10^3/uL (4.4-10.8)
[2017-03-03 22:07] LABS: Albumin 2.6 g/dL (3.4-5.0); BUN/Creatinine Ratio 6.5; Bilirubin, Total 0.3 mg/dL (0.2-1.0); Calcium 9.2 mg/dL (8.5-10.1); Total Protein 8.1 g/dL (6.4-8.2)
[2017-03-03 22:22] LABS: Potassium 6.2 mmol/L (3.5-5.1)
[2017-03-03 22:24] LABS: INR 1.04 (0.9-1.15); Partial Thromboplastin Time 29.2 sec (22.64-33.71); Prothrombin Time 11.3 sec (9.37-12.3)
[2017-03-03] MEDS ORDERED: ALBUTEROL SULF 2.5 MG/0.5ML(0.5%) NEB SOLN NEB STA (22:37)
[2017-03-03] MEDS ORDERED: InsuLIN REG 1unit/0.01ml Soln (100units/ml) IV ONE (22:45)
[2017-03-03] MEDS ORDERED: SODIUM BICARBONATE 8.4% INJ 50ML SYRINGE IV ONE (22:45)
[2017-03-03] MEDS ORDERED: SODIUM POLYSTYRENE SULF 15GM/60ML SUSP PO ONE ×2 (22:45→23:00)
[2017-03-03] MEDS ORDERED: CALCIUM GLUC 4.65meq/50ml D5AE 50 ML IV ONE (22:45)
[2017-03-03] MEDS ORDERED: DEXTROSE (50%) 50ML SYRG IV ONE (22:45)
[2017-03-03] MEDS ORDERED: FUROSEMIDE 40 MG/4 ML VIAL ONE (23:17)
[2017-03-04] MEDS ORDERED: ONDANSETRON HCL 4 MG/2 ML VIAL IV PRN
[2017-03-04] MEDS ORDERED: DEXTROSE (50%) 50ML SYRG IV PRN
[2017-03-04] MEDS ORDERED: MORPHINE SULFATE 4 MG/ML SYR/VIAL IV PRN
[2017-03-04] MEDS ORDERED: HYDROcodone-ACET 5/325MG TAB PO PRN
[2017-03-04] MEDS ORDERED: NITROGLYCERIN 0.4 MG SL TAB SL PRN
[2017-03-04] MEDS ORDERED: ACETAMINOPHEN 325 MG TAB PO PRN
[2017-03-04] MEDS ORDERED: TEMAZEPAM 15 MG CAP PO PRN
[2017-03-04] MEDS ORDERED: FUROSEMIDE 20 MG/2 ML VIAL IV ONE
[2017-03-04] MEDS ORDERED: LABETALOL HCL 5 MG/ML ML 20ML VIAL IV ONE
[2017-03-04] MEDS: LABETALOL HCL 200 MG TAB PO SCH ×3 (06:00→21:54)
[2017-03-04] MEDS: InsuLIN REG 1unit/0.01ml Soln (100units/ml) SC SCH ×5 (06:00→23:16)
[2017-03-04] MEDS: ACCU-CHEK COMFORT CURVE STRIP VI SCH ×5 (06:00→23:16)
[2017-03-04] MEDS: cloNIDine HCL 0.1 MG TAB PO SCH ×3 (06:00→21:53)
[2017-03-04 07:12] LABS: Basophils # (auto) 0.1 uL; Hemoglobin 7.8 g/dL (13.5-17.5); Lymphocytes # (auto) 1.3 uL; Monocytes # (auto) 0.9 uL
[2017-03-04 07:16] LABS: Basophils % (auto) 1.6 % (0.0-2.0); Eosinophils # (auto) 0.2 uL; Eosinophils % (auto) 3.5 % (0.0-7.0); Hematocrit 24.3 % (41.0-53.0); Lymphocytes % (auto) 19.1 % (10.0-50.0); Mean Corpuscular Hemoglobin 27.1 pg (28.0-32.0); Mean Corpuscular Hgb Conc. 32.2 g/dL (32.0-36.0); Mean Corpuscular Volume 84.2 fL (80.0-100.0); Monocytes % (auto) 12.3 % (0.0-12.0); Neutrophils # (auto) 4.4 uL; Neutrophils % (auto) 63.5 % (37.0-80.0); Nucleated Red Blood Cells % 0.1 %; Platelet Count (auto) 244 10^3/uL (140-450); Red Blood Cells 2.89 10^6/uL (4.5-5.90); Red Cell Distribution Width 17.3 % (11.8-14.3); White Blood Cell 6.9 10^3/uL (4.4-10.8)
[2017-03-04 07:45] LABS: Albumin 2.6 g/dL (3.4-5.0); BUN/Creatinine Ratio 6.4; Bilirubin, Total 0.3 mg/dL (0.2-1.0); Calcium 9.1 mg/dL (8.5-10.1)
[2017-03-04 08:04] LABS: Potassium 5.7 mmol/L (3.5-5.1)
[2017-03-04] MEDS: hydrALAZINE HCL 25 MG TAB PO PRN ×2 (08:16→17:26)
[2017-03-04] MEDS: ENOXAPARIN SOD 30 MG/0.3 ML SYRINGE SC SCH (10:00)
[2017-03-04] MEDS ORDERED: OLANZapine 5 MG TAB PO SCH (10:00)
[2017-03-04] MEDS: NIFEdipine ER 30 MG TAB PO SCH (10:11)
[2017-03-04] MEDS: PANTOPRAZOLE 40 MG TAB PO SCH (10:11)
[2017-03-04] MEDS: ASPirin 81 mg TAB PO SCH (10:11)
[2017-03-04 18:29] VITALS: BP 161/119
[2017-03-04] MEDS: risperiDONE 1 MG TAB PO SCH (21:54)
[2017-03-04] MEDS: QUEtiapine FUMARATE 100 MG TAB PO SCH (21:54)
[2017-03-04 22:00] VITALS: BP 162/120
[2017-03-05 05:00] VITALS: BP 148/92
[2017-03-05] MEDS: InsuLIN REG 1unit/0.01ml Soln (100units/ml) SC SCH ×4 (05:21→23:52)
[2017-03-05] MEDS: ACCU-CHEK COMFORT CURVE STRIP VI SCH ×4 (05:21→23:52)
[2017-03-05] MEDS: cloNIDine HCL 0.1 MG TAB PO SCH ×3 (05:32→21:41)
[2017-03-05] MEDS: LABETALOL HCL 200 MG TAB PO SCH ×3 (05:33→21:43)
[2017-03-05 05:49] LABS: Basophils # (auto) 0.1 uL; Basophils % (auto) 1.7 % (0.0-2.0); Eosinophils # (auto) 0.3 uL; Eosinophils % (auto) 4.2 % (0.0-7.0); Hematocrit 27.2 % (41.0-53.0); Hemoglobin 8.6 g/dL (13.5-17.5); Lymphocytes # (auto) 1.4 uL; Lymphocytes % (auto) 22.5 % (10.0-50.0); Mean Corpuscular Hemoglobin 26.6 pg (28.0-32.0); Mean Corpuscular Hgb Conc. 31.6 g/dL (32.0-36.0); Mean Corpuscular Volume 84.2 fL (80.0-100.0); Monocytes % (auto) 16.1 % (0.0-12.0); Neutrophils # (auto) 3.5 uL; Neutrophils % (auto) 55.5 % (37.0-80.0); Nucleated Red Blood Cells % 0.1 %; Platelet Count (auto) 271 10^3/uL (140-450); Red Blood Cells 3.23 10^6/uL (4.5-5.90); Red Cell Distribution Width 17.7 % (11.8-14.3); White Blood Cell 6.3 10^3/uL (4.4-10.8)
[2017-03-05 06:06] LABS: Calcium 9.2 mg/dL (8.5-10.1)
[2017-03-05] MEDS ORDERED: SODIUM POLYSTYRENE SULF 15GM/60ML SUSP PO ONE (06:45)
[2017-03-05] MEDS ORDERED: DEXTROSE (50%) 50ML SYRG IV ONE (06:45)
[2017-03-05] MEDS ORDERED: SODIUM BICARBONATE 8.4 % INJ 50ML VIAL IV ONE (06:45)
[2017-03-05] MEDS ORDERED: CALCIUM GLUC 4.65meq/50ml D5AE 50 ML IV ONE (06:45)
[2017-03-05] MEDS ORDERED: InsuLIN REG 1unit/0.01ml Soln (100units/ml) IV ONE (06:45)
[2017-03-05 08:00] VITALS: BP 179/115
[2017-03-05 09:00] VITALS: BP 179/115
[2017-03-05] MEDS: ASPirin 81 mg TAB PO SCH (09:38)
[2017-03-05] MEDS: risperiDONE 1 MG TAB PO SCH ×2 (09:38→21:41)
[2017-03-05] MEDS: PANTOPRAZOLE 40 MG TAB PO SCH (09:38)
[2017-03-05] MEDS: NIFEdipine ER 30 MG TAB PO SCH (09:39)
[2017-03-05] MEDS: OLANZapine 5 MG TAB PO SCH (09:39)
[2017-03-05] MEDS: ENOXAPARIN SOD 30 MG/0.3 ML SYRINGE SC SCH (09:40)
[2017-03-05 13:00] VITALS: BP 169/118
[2017-03-05 17:00] VITALS: BP 127/94
[2017-03-05] MEDS: QUEtiapine FUMARATE 100 MG TAB PO SCH (21:41)
[2017-03-05 22:42] VITALS: BP 133/98
[2017-03-06] MEDS: hydrALAZINE HCL 25 MG TAB PO PRN (05:09)
[2017-03-06 05:41] VITALS: BP 159/104
[2017-03-06] MEDS: InsuLIN REG 1unit/0.01ml Soln (100units/ml) SC SCH ×3 (05:59→18:00)
[2017-03-06] MEDS: cloNIDine HCL 0.1 MG TAB PO SCH ×2 (05:59→15:50)
[2017-03-06] MEDS: LABETALOL HCL 200 MG TAB PO SCH ×2 (05:59→15:49)
[2017-03-06] MEDS: ACCU-CHEK COMFORT CURVE STRIP VI SCH ×3 (05:59→18:00)
[2017-03-06 07:30] LABS: Basophils % (auto) 1.1 % (0.0-2.0); Eosinophils % (auto) 5.4 % (0.0-7.0); Lymphocytes # (auto) 1.8 uL; Lymphocytes % (auto) 27.3 % (10.0-50.0); Neutrophils # (auto) 3.3 uL; Neutrophils % (auto) 50.2 % (37.0-80.0); White Blood Cell 6.5 10^3/uL (4.4-10.8)
[2017-03-06 07:31] LABS: Basophils # (auto) 0.1 uL; Eosinophils # (auto) 0.4 uL; Hemoglobin 8.2 g/dL (13.5-17.5); Mean Corpuscular Hemoglobin 26.6 pg (28.0-32.0); Mean Corpuscular Hgb Conc. 31.8 g/dL (32.0-36.0); Mean Corpuscular Volume 83.6 fL (80.0-100.0); Platelet Count (auto) 279 10^3/uL (140-450); Red Cell Distribution Width 17.3 % (11.8-14.3)
[2017-03-06 07:49] LABS: BUN/Creatinine Ratio 7.5; Calcium 9.5 mg/dL (8.5-10.1)
[2017-03-06 08:07] LABS: Potassium 6.4 mmol/L (3.5-5.1)
[2017-03-06 08:57] VITALS: BP 158/114
[2017-03-06] MEDS: ENOXAPARIN SOD 30 MG/0.3 ML SYRINGE SC SCH (10:00)
[2017-03-06] MEDS: PANTOPRAZOLE 40 MG TAB PO SCH (10:24)
[2017-03-06] MEDS: risperiDONE 1 MG TAB PO SCH (10:24)
[2017-03-06] MEDS: OLANZapine 5 MG TAB PO SCH (10:24)
[2017-03-06] MEDS: NIFEdipine ER 30 MG TAB PO SCH (10:24)
[2017-03-06] MEDS: ASPirin 81 mg TAB PO SCH (10:25)
[2017-03-06 12:22] VITALS: BP 163/112
[2017-03-06 16:30] VITALS: BP 105/66
[2017-03-06 18:40] VITALS: BP 105/66
== END 2017-03-06 20:55 | disposition home or self-care (01) | DRG 194 ==
LOC: ER 17:56 → OVERFLOW 17:57 → TELE-CENTR 03-04 18:12 → CENTRAL 03-06 08:35
PROVIDERS: ADMIT Nurse Practitioner; ATTEND Family Medicine
PROC: 5A1D70Z Performance of Urinary Filtration, Intermittent, Less than 6 Hours Per Day (ICD-10-PCS; principal; 2017-03-04)
PROC: 5A1D70Z Performance of Urinary Filtration, Intermittent, Less than 6 Hours Per Day (ICD-10-PCS; 2017-03-06)
DX: I13.2 Hypertensive heart and chronic kidney disease with heart failure and with stage 5 chronic kidney disease, or end stage renal disease (principal); E43 Unspecified severe protein-calorie malnutrition; N18.6 End stage renal disease; E11.22 Type 2 diabetes mellitus with diabetic chronic kidney disease; E87.5 Hyperkalemia; I50.43 Acute on chronic combined systolic (congestive) and diastolic (congestive) heart failure; D63.1 Anemia in chronic kidney disease; I50.82 Biventricular heart failure; F20.9 Schizophrenia, unspecified; F41.9 Anxiety disorder, unspecified; I50.9 Heart failure, unspecified; J06.9 Acute upper respiratory infection, unspecified; Z82.49 Family history of ischemic heart disease and other diseases of the circulatory system; Z91.19 Patient's noncompliance with other medical treatment and regimen; Z99.2 Dependence on renal dialysis; Z83.3 Family history of diabetes mellitus
CPT/HCPCS: 36415; 71046; 80048; 80053; 82140; 82962; 83036; 83605; 83880; 84132; 84484; 85025; 85610; 85730; 87040; 90935; 93005; 93306; 94644; 96365; 96375; G0378; J0610; J1815

== ENCOUNTER 2017-03-31 22:11 | Inpatient (IN) | payer MEDICAID ==
[~2017-03-31] VITALS: Ht 170.2 cm; Wt 75.7 kg
[2017-04-01 03:48] LABS: Basophils # (auto) 0.1 uL; Lymphocytes # (auto) 1.6 uL
[2017-04-01 03:51] LABS: Basophils % (auto) 1.2 % (0.0-2.0); Eosinophils # (auto) 0.2 uL; Eosinophils % (auto) 2.5 % (0.0-7.0); Hemoglobin 7.7 g/dL (13.5-17.5); Lymphocytes % (auto) 19.1 % (10.0-50.0); Mean Corpuscular Hemoglobin 27.5 pg (28.0-32.0); Monocytes # (auto) 1.2 uL; Neutrophils # (auto) 5.1 uL; Neutrophils % (auto) 62.2 % (37.0-80.0); Nucleated Red Blood Cells % 0.2 %; Platelet Count (auto) 341 10^3/uL (140-450); Red Blood Cells 2.79 10^6/uL (4.5-5.90); White Blood Cell 8.1 10^3/uL (4.4-10.8)
[2017-04-01 04:00] LABS: Red Cell Distribution Width 21.2 % (11.8-14.3)
[2017-04-01 04:04] LABS: INR 1.01 (0.9-1.15); Partial Thromboplastin Time 28.1 sec (22.64-33.71)
[2017-04-01 04:05] LABS: Albumin 2.7 g/dL (3.4-5.0); Calcium 9.6 mg/dL (8.5-10.1); Potassium 5.4 mmol/L (3.5-5.1)
[2017-04-01 04:14] LABS: Bilirubin, Total 0.2 mg/dL (0.2-1.0); Total Protein 8.8 g/dL (6.4-8.2)
[2017-04-01] MEDS ORDERED: cloNIDine HCL 0.1 MG TAB PO ONE (04:30)
[2017-04-01] MEDS ORDERED: SODIUM POLYSTYRENE SULF 15GM/60ML SUSP PO ONE (06:15)
[2017-04-01] MEDS ORDERED: ONDANSETRON HCL 4 MG/2 ML VIAL IV PRN (07:45)
[2017-04-01] MEDS ORDERED: DEXTROSE (50%) 50ML SYRG IV PRN (07:45)
[2017-04-01] MEDS ORDERED: MORPHINE SULFATE 4 MG/ML SYR/VIAL IV PRN (07:45)
[2017-04-01] MEDS ORDERED: NITROGLYCERIN 0.4 MG SL TAB SL PRN (07:45)
[2017-04-01] MEDS ORDERED: TEMAZEPAM 15 MG CAP PO PRN (07:45)
[2017-04-01] MEDS ORDERED: ENALAPRIL MALEATE 2.5 MG TAB PO ONE (07:45)
[2017-04-01] MEDS: HYDROcodone-ACET 5/325MG TAB PO PRN (09:43)
[2017-04-01] MEDS ORDERED: NITROGLYCERIN 50MG/250ML 250 ML IV SCH ×2 (09:49→10:00)
[2017-04-01] MEDS: LABETALOL HCL 200 MG TAB PO SCH ×2 (10:00→21:47)
[2017-04-01] MEDS ORDERED: SODIUM CHL 0.9% 1000 ML BAG XX ONE (10:00)
[2017-04-01] MEDS: HEPARIN SODIUM (PORCINE) 5000 UNITS/ML 1ML VIAL SC SCH ×2 (10:00→21:47)
[2017-04-01] MEDS ORDERED: EPOETIN ALFA 10,000 UNIT/1 ML VIAL IV ONE (10:00)
[2017-04-01] MEDS: NIFEdipine ER 30 MG TAB PO SCH (10:00)
[2017-04-01] MEDS: ASPirin 81 mg TAB PO SCH (10:27)
[2017-04-01] MEDS: PANTOPRAZOLE 40 MG TAB PO SCH (10:27)
[2017-04-01] MEDS: ACCU-CHEK COMFORT CURVE STRIP VI SCH ×2 (12:00→17:41)
[2017-04-01] MEDS: InsuLIN REG 1unit/0.01ml Soln (100units/ml) SC SCH ×2 (12:00→17:41)
[2017-04-01 13:27] VITALS: BP 204/135
[2017-04-01 13:29] VITALS: BP 202/135
[2017-04-01 13:33] LABS: % Iron Saturation 26.9 % (20-55)
[2017-04-01 13:55] VITALS: BP 221/135
[2017-04-01] MEDS: cloNIDine HCL 0.1 MG TAB PO SCH ×2 (14:00→21:46)
[2017-04-01 14:31] VITALS: BP 217/147
[2017-04-01 14:36] VITALS: BP 211/146
[2017-04-01] MEDS: ACETAMINOPHEN 325 MG TAB PO PRN ×2 (15:42→23:39)
[2017-04-01] MEDS: LABETALOL HCL 5 MG/ML ML 20ML VIAL IV PRN (17:54)
[2017-04-01] MEDS: Boost Glucose Control 8 Ounces PO SCH (18:00)
[2017-04-01 20:04] LABS: Basophils # (auto) 0.1 uL; Basophils % (auto) 1.1 % (0.0-2.0); Eosinophils # (auto) 0.1 uL; Eosinophils % (auto) 1.8 % (0.0-7.0); Hematocrit 28.9 % (41.0-53.0); Hemoglobin 9.2 g/dL (13.5-17.5); Lymphocytes % (auto) 13.9 % (10.0-50.0); Mean Corpuscular Hemoglobin 27.5 pg (28.0-32.0); Mean Corpuscular Hgb Conc. 31.7 g/dL (32.0-36.0); Mean Corpuscular Volume 86.7 fL (80.0-100.0); Monocytes # (auto) 1.1 uL; Monocytes % (auto) 14.7 % (0.0-12.0); Neutrophils # (auto) 5.1 uL; Neutrophils % (auto) 68.5 % (37.0-80.0); Nucleated Red Blood Cells % 0.2 %; Platelet Count (auto) 325 10^3/uL (140-450); Red Blood Cells 3.34 10^6/uL (4.5-5.90); Red Cell Distribution Width 19.5 % (11.8-14.3); White Blood Cell 7.4 10^3/uL (4.4-10.8)
[2017-04-01 20:10] LABS: Albumin 2.6 g/dL (3.4-5.0); BUN/Creatinine Ratio 6.1; Bilirubin, Total 0.2 mg/dL (0.2-1.0); Calcium 8.8 mg/dL (8.5-10.1); Potassium 4.3 mmol/L (3.5-5.1); Total Protein 9.1 g/dL (6.4-8.2)
[2017-04-01] MEDS ORDERED: hydrALAZINE HCL 20 MG/ML VL IV ONE (20:15)
[2017-04-01] MEDS ORDERED: DILTIAZEM HCL 25 MG/5 ML VIAL IV ONE (22:45)
[2017-04-02] MEDS: ACCU-CHEK COMFORT CURVE STRIP VI SCH ×5 (00:21→23:40)
[2017-04-02] MEDS: LABETALOL HCL 5 MG/ML ML 20ML VIAL IV PRN ×2 (01:02→03:55)
[2017-04-02] MEDS: ACETAMINOPHEN 325 MG TAB PO PRN (05:45)
[2017-04-02] MEDS: cloNIDine HCL 0.1 MG TAB PO SCH ×3 (05:49→22:13)
[2017-04-02] MEDS: InsuLIN REG 1unit/0.01ml Soln (100units/ml) SC SCH ×5 (05:53→23:40)
[2017-04-02] MEDS: NICARDIPINE 25MG/250ML BAG KIT 250 ML IV SCH ×3 (06:36→16:30)
[2017-04-02 06:39] LABS: Basophils # (auto) 0.1 uL; Basophils % (auto) 1.1 % (0.0-2.0); Eosinophils # (auto) 0.1 uL; Hematocrit 26.7 % (41.0-53.0); Hemoglobin 8.6 g/dL (13.5-17.5); Mean Corpuscular Hemoglobin 28.3 pg (28.0-32.0); Mean Corpuscular Hgb Conc. 32.3 g/dL (32.0-36.0); Mean Corpuscular Volume 87.4 fL (80.0-100.0); Monocytes # (auto) 1.2 uL; Neutrophils # (auto) 5.5 uL; Neutrophils % (auto) 69.9 % (37.0-80.0); Nucleated Red Blood Cells % 0.2 %; Platelet Count (auto) 333 10^3/uL (140-450); Red Blood Cells 3.05 10^6/uL (4.5-5.90); Red Cell Distribution Width 19.4 % (11.8-14.3); White Blood Cell 7.8 10^3/uL (4.4-10.8)
[2017-04-02 06:56] LABS: Albumin 2.5 g/dL (3.4-5.0); Calcium 9.4 mg/dL (8.5-10.1); Potassium 4.9 mmol/L (3.5-5.1)
[2017-04-02 06:59] LABS: BUN/Creatinine Ratio 6.5
[2017-04-02 07:02] LABS: Bilirubin, Total 0.3 mg/dL (0.2-1.0); Total Protein 8.4 g/dL (6.4-8.2)
[2017-04-02] MEDS: Boost Glucose Control 8 Ounces PO SCH ×3 (08:11→18:31)
[2017-04-02] MEDS: HEPARIN SODIUM (PORCINE) 5000 UNITS/ML 1ML VIAL SC SCH ×2 (10:00→22:00)
[2017-04-02] MEDS: LABETALOL HCL 200 MG TAB PO SCH ×3 (10:06→22:13)
[2017-04-02] MEDS: NIFEdipine ER 30 MG TAB PO SCH (10:06)
[2017-04-02] MEDS: ASPirin 81 mg TAB PO SCH (10:06)
[2017-04-02] MEDS: PANTOPRAZOLE 40 MG TAB PO SCH (10:06)
[2017-04-02] MEDS: HYDROcodone-ACET 5/325MG TAB PO PRN (11:13)
[2017-04-02] MEDS ORDERED: cloNIDine HCL 0.1 MG TAB PO PRN (14:00)
[2017-04-02] MEDS ORDERED: HYDR50TA15 PO (18:12)
[2017-04-02] MEDS ORDERED: ASPI81TA27 PO (18:12)
[2017-04-02] MEDS ORDERED: B-COTAB10 PO (18:12)
[2017-04-02] MEDS ORDERED: PRE5T PO (18:12)
[2017-04-02] MEDS ORDERED: DOXY100C2 PO (18:12)
[2017-04-02] MEDS ORDERED: CARV12.544 PO (18:12)
[2017-04-02] MEDS ORDERED: QUET100T46 PO (18:12)
[2017-04-02] MEDS ORDERED: FERR-20 PO (18:12)
[2017-04-02 18:14] VITALS: BP 137/78
[2017-04-02 22:00] VITALS: BP 138/78
[2017-04-03 04:49] LABS: Urine Bacteria NONE SEEN /hpf (None Seen); Urine Blood 1+ /uL (Negative); Urine Specific Gravity 1.008 (1.001-1.035); Urine WBC 17 /hpf (0 - 3)
[2017-04-03 05:00] VITALS: BP 141/76
[2017-04-03 05:35] LABS: Basophils # (auto) 0.1 uL; Basophils % (auto) 1.4 % (0.0-2.0); Eosinophils # (auto) 0.3 uL; Eosinophils % (auto) 3.8 % (0.0-7.0); Hematocrit 28.3 % (41.0-53.0); Hemoglobin 9.2 g/dL (13.5-17.5); Lymphocytes # (auto) 1.5 uL; Lymphocytes % (auto) 21.4 % (10.0-50.0); Mean Corpuscular Hemoglobin 28.7 pg (28.0-32.0); Mean Corpuscular Hgb Conc. 32.7 g/dL (32.0-36.0); Mean Corpuscular Volume 87.7 fL (80.0-100.0); Monocytes # (auto) 1.1 uL; Monocytes % (auto) 14.9 % (0.0-12.0); Neutrophils # (auto) 4.2 uL; Neutrophils % (auto) 58.5 % (37.0-80.0); Nucleated Red Blood Cells % 0.2 %; Platelet Count (auto) 311 10^3/uL (140-450); Red Blood Cells 3.23 10^6/uL (4.5-5.90); Red Cell Distribution Width 19.7 % (11.8-14.3); White Blood Cell 7.1 10^3/uL (4.4-10.8)
[2017-04-03] MEDS: cloNIDine HCL 0.1 MG TAB PO SCH ×3 (05:39→22:00)
[2017-04-03] MEDS: InsuLIN REG 1unit/0.01ml Soln (100units/ml) SC SCH (05:40)
[2017-04-03] MEDS: ACCU-CHEK COMFORT CURVE STRIP VI SCH (05:40)
[2017-04-03] MEDS: LABETALOL HCL 200 MG TAB PO SCH ×3 (05:40→22:26)
[2017-04-03 06:14] LABS: BUN/Creatinine Ratio 6.4; Calcium 9.2 mg/dL (8.5-10.1)
[2017-04-03 06:25] LABS: Potassium 5.7 mmol/L (3.5-5.1)
[2017-04-03 08:23] VITALS: BP 150/80
[2017-04-03] MEDS: Boost Glucose Control 8 Ounces PO SCH ×3 (09:04→17:50)
[2017-04-03] MEDS: ASPirin 81 mg TAB PO SCH (09:05)
[2017-04-03] MEDS: NIFEdipine ER 30 MG TAB PO SCH (09:06)
[2017-04-03] MEDS: PANTOPRAZOLE 40 MG TAB PO SCH (09:07)
[2017-04-03] MEDS: HEPARIN SODIUM (PORCINE) 5000 UNITS/ML 1ML VIAL SC SCH ×2 (09:07→22:00)
[2017-04-03] MEDS ORDERED: SODIUM CHL 0.9% 1000 ML BAG XX ONE (10:15)
[2017-04-03] MEDS ORDERED: EPOETIN ALFA 10,000 UNIT/1 ML VIAL IV ONE (10:15)
[2017-04-03 11:54] VITALS: BP 151/85
[2017-04-03 14:55] VITALS: BP 141/84
[2017-04-03] MEDS: OLANZapine 5 MG TAB PO SCH (14:58)
[2017-04-03 17:22] VITALS: BP 144/77
[2017-04-03 22:00] VITALS: BP 135/77
[2017-04-04 05:00] VITALS: BP 136/80
[2017-04-04] MEDS: cloNIDine HCL 0.1 MG TAB PO SCH ×3 (05:41→22:02)
[2017-04-04] MEDS: LABETALOL HCL 200 MG TAB PO SCH ×4 (06:00→22:03)
[2017-04-04 08:52] LABS: BUN/Creatinine Ratio 6.8
[2017-04-04 08:58] LABS: Potassium 6.4 mmol/L (3.5-5.1)
[2017-04-04 09:00] VITALS: BP 151/93
[2017-04-04] MEDS ORDERED: SODIUM BICARBONATE 8.4 % INJ 50ML VIAL IV ONE (09:00)
[2017-04-04] MEDS ORDERED: DEXTROSE (50%) 50ML SYRG IV ONE (09:00)
[2017-04-04] MEDS ORDERED: InsuLIN REG 1unit/0.01ml Soln (100units/ml) IV ONE (09:00)
[2017-04-04] MEDS: Boost Glucose Control 8 Ounces PO SCH ×3 (09:31→18:10)
[2017-04-04] MEDS: ASPirin 81 mg TAB PO SCH (09:32)
[2017-04-04] MEDS: OLANZapine 5 MG TAB PO SCH (09:33)
[2017-04-04] MEDS: HEPARIN SODIUM (PORCINE) 5000 UNITS/ML 1ML VIAL SC SCH ×2 (09:33→22:00)
[2017-04-04] MEDS: PANTOPRAZOLE 40 MG TAB PO SCH (09:33)
[2017-04-04] MEDS: NIFEdipine ER 30 MG TAB PO SCH (09:34)
[2017-04-04] MEDS ORDERED: SODIUM CHL 0.9% 1000 ML BAG XX ONE (11:15)
[2017-04-04] MEDS: SODIUM POLYSTYRENE SULF 15GM/60ML SUSP PO SCH ×3 (11:45→19:45)
[2017-04-04 13:00] VITALS: BP 183/122
[2017-04-04 16:57] VITALS: BP 149/99
[2017-04-04 21:50] VITALS: BP 154/83
[2017-04-05 05:00] VITALS: BP 158/87
[2017-04-05] MEDS: LABETALOL HCL 200 MG TAB PO SCH ×2 (05:31→14:36)
[2017-04-05] MEDS: cloNIDine HCL 0.1 MG TAB PO SCH ×2 (05:31→14:37)
[2017-04-05 08:00] VITALS: BP 146/95
[2017-04-05 09:00] VITALS: BP 146/95
[2017-04-05] MEDS: ASPirin 81 mg TAB PO SCH (09:07)
[2017-04-05] MEDS: PANTOPRAZOLE 40 MG TAB PO SCH (09:07)
[2017-04-05] MEDS: OLANZapine 5 MG TAB PO SCH (09:08)
[2017-04-05] MEDS: Boost Glucose Control 8 Ounces PO SCH ×2 (09:09→12:04)
[2017-04-05] MEDS ORDERED: DEXTROSE (50%) 50ML SYRG IV ONE (10:00)
[2017-04-05] MEDS ORDERED: InsuLIN REG 1unit/0.01ml Soln (100units/ml) IV ONE (10:00)
[2017-04-05] MEDS ORDERED: EPOETIN ALFA 10,000 UNIT/1 ML VIAL IV ONE (11:15)
[2017-04-05] MEDS ORDERED: CARVEDILOL 12.5 MG TAB PO ONE (11:30)
[2017-04-05 13:00] VITALS: BP 170/113
[2017-04-05] MEDS ORDERED: CATHFLO ACTIVASE (ALTEPLASE) 2 MG VIAL IV ONE (13:00)
[2017-04-05] MEDS: HEPARIN SODIUM (PORCINE) 5000 UNITS/ML 1ML VIAL SC SCH (14:30)
[2017-04-05] MEDS: NIFEdipine ER 30 MG TAB PO SCH (14:38)
[2017-04-05 17:00] VITALS: BP 157/102
[2017-04-05] MEDS ORDERED: CARVEDILOL 12.5 MG TAB PO SCH (22:00)
== END 2017-04-05 17:15 | disposition home or self-care (01) | DRG 133 ==
LOC: ER 22:11 → TELE 22:12 → TELE-WESTW 04-02 17:38
PROVIDERS: ADMIT Nurse Practitioner; ATTEND Internal Medicine
PROC: 30233N1 Transfusion of Nonautologous Red Blood Cells into Peripheral Vein, Percutaneous Approach (ICD-10-PCS; principal; 2017-04-01)
PROC: 5A1D70Z Performance of Urinary Filtration, Intermittent, Less than 6 Hours Per Day (ICD-10-PCS; 2017-04-01)
PROC: 5A1D70Z Performance of Urinary Filtration, Intermittent, Less than 6 Hours Per Day (ICD-10-PCS; 2017-04-03)
PROC: 5A1D70Z Performance of Urinary Filtration, Intermittent, Less than 6 Hours Per Day (ICD-10-PCS; 2017-04-05)
DX: J96.00 Acute respiratory failure, unspecified whether with hypoxia or hypercapnia (principal); E43 Unspecified severe protein-calorie malnutrition; I13.2 Hypertensive heart and chronic kidney disease with heart failure and with stage 5 chronic kidney disease, or end stage renal disease; N25.81 Secondary hyperparathyroidism of renal origin; N18.6 End stage renal disease; E11.22 Type 2 diabetes mellitus with diabetic chronic kidney disease; F41.9 Anxiety disorder, unspecified; I50.9 Heart failure, unspecified; E11.65 Type 2 diabetes mellitus with hyperglycemia; I16.0 Hypertensive urgency; F31.9 Bipolar disorder, unspecified; I08.0 Rheumatic disorders of both mitral and aortic valves; E87.1 Hypo-osmolality and hyponatremia; E87.5 Hyperkalemia; D64.9 Anemia, unspecified; F20.9 Schizophrenia, unspecified; Z91.15 Patient's noncompliance with renal dialysis; Z99.2 Dependence on renal dialysis; Z82.49 Family history of ischemic heart disease and other diseases of the circulatory system; Z83.3 Family history of diabetes mellitus; Z91.19 Patient's noncompliance with other medical treatment and regimen; Z79.82 Long term (current) use of aspirin; Z68.26 Body mass index [BMI] 26.0-26.9, adult
CPT/HCPCS: 36415; 36430; 71045; 80048; 80053; 81001; 82306; 82728; 82962; 83036; 83540; 83550; 83880; 83970; 84100; 84132; 84443; 84484; 85025; 85610; 85730; 86850; 86900; 86901; 86920; 87081; 87086; 90935; 93005; 96365; 96375; J0885; J1642; J1815; J2405

== ENCOUNTER 2017-05-01 09:14 | Inpatient (IN) | payer MEDICAID ==
[~2017-05-01] VITALS: Ht 177.8 cm; Wt 82.5 kg
[~2017-05-01 09:14] MED LIST changes: +ASPI81TA27 PO; +B-COTAB10 PO; +CARV12.544 PO; +FERR-20 PO; -HYDR25TA35 PO; +HYDR50TA15 PO
[2017-05-01 09:57] LABS: Basophils # (auto) 0 uL; Basophils % (auto) 0.4 % (0.0-2.0); Eosinophils # (auto) 0.3 uL; Hemoglobin 7.1 g/dL (13.5-17.5); Lymphocytes # (auto) 1.2 uL; White Blood Cell 7.7 10^3/uL (4.4-10.8)
[2017-05-01 10:00] LABS: Eosinophils % (auto) 3.3 % (0.0-7.0); Hematocrit 22.7 % (41.0-53.0); Lymphocytes % (auto) 15.7 % (10.0-50.0); Mean Corpuscular Hemoglobin 27.7 pg (28.0-32.0); Mean Corpuscular Hgb Conc. 31.3 g/dL (32.0-36.0); Mean Corpuscular Volume 88.6 fL (80.0-100.0); Monocytes # (auto) 1.1 uL; Monocytes % (auto) 14.8 % (0.0-12.0); Neutrophils # (auto) 5.1 uL; Neutrophils % (auto) 65.8 % (37.0-80.0); Platelet Count (auto) 225 10^3/uL (140-450); Red Blood Cells 2.56 10^6/uL (4.5-5.90)
[2017-05-01 10:16] LABS: Red Cell Distribution Width 20.4 % (11.8-14.3)
[2017-05-01 10:19] LABS: Albumin 2.6 g/dL (3.4-5.0); BUN/Creatinine Ratio 6.6; Calcium 8.7 mg/dL (8.5-10.1); Magnesium 2.4 mg/dL (1.6-2.6)
[2017-05-01] MEDS ORDERED: LABETALOL HCL 5 MG/ML ML 20ML VIAL IV ONE ×2 (10:23→10:30)
[2017-05-01 10:27] LABS: Bilirubin, Total 0.4 mg/dL (0.2-1.0); Total Protein 8.6 g/dL (6.4-8.2)
[2017-05-01 10:28] LABS: Potassium 5.8 mmol/L (3.5-5.1)
[2017-05-01] MEDS ORDERED: NITROGLYCERIN 50MG/250ML 250 ML IV SCH (10:31)
[2017-05-01] MEDS ORDERED: ALBUTEROL SULF 2.5 MG/0.5ML(0.5%) NEB SOLN NEB STA (11:17)
[2017-05-01] MEDS ORDERED: SODIUM BICARBONATE 8.4% INJ 50ML SYRINGE IV ONE (11:30)
[2017-05-01] MEDS ORDERED: InsuLIN REG 1unit/0.01ml Soln (100units/ml) IV ONE (11:30)
[2017-05-01] MEDS ORDERED: DEXTROSE (50%) 50ML SYRG IV ONE (11:30)
[2017-05-01] MEDS ORDERED: CALCIUM GLUC 4.65meq/50ml D5AE 50 ML IV ONE (11:30)
[2017-05-01] MEDS: NICARDIPINE 25MG/250ML BAG KIT 250 ML IV SCH ×3 (12:33→22:18)
[2017-05-01] MEDS ORDERED: NALBUPHINE HCL 10 MG/1ml INJECTION IV ONE (13:15)
[2017-05-01] MEDS ORDERED: SODIUM CHL 0.9% 1000 ML BAG XX ONE (13:30)
[2017-05-01] MEDS ORDERED: EPOETIN ALFA 10,000 UNIT/1 ML VIAL IV ONE (13:30)
[2017-05-01] MEDS: cloNIDine HCL 0.1 MG TAB PO SCH ×2 (13:52→21:19)
[2017-05-01] MEDS ORDERED: cloNIDine HCL 0.1 MG TAB PO PRN (14:15)
[2017-05-01] MEDS ORDERED: ONDANSETRON HCL 4 MG/2 ML VIAL IV PRN (14:15)
[2017-05-01] MEDS ORDERED: NITROGLYCERIN 0.4 MG SL TAB SL PRN (14:15)
[2017-05-01] MEDS ORDERED: HALOPERIDOL 1 MG TAB PO PRN (14:15)
[2017-05-01] MEDS ORDERED: hydrALAZINE HCL 25 MG TAB PO PRN (14:15)
[2017-05-01] MEDS ORDERED: ZOLPIDEM TARTRATE 5 MG TAB PO PRN (14:15)
[2017-05-01] MEDS ORDERED: hydrALAZINE HCL 25 MG TAB PO ONE (14:15)
[2017-05-01] MEDS ORDERED: LORazepam 0.5 MG TAB PO PRN (14:15)
[2017-05-01] MEDS ORDERED: ALUM & MAG HYDROX-SIMETH LIQ(MAALOX) 30 ML PO ONE (14:15)
[2017-05-01] MEDS ORDERED: MORPHINE SULFATE 4 MG/ML SYR/VIAL IV PRN (14:30)
[2017-05-01] MEDS ORDERED: cefTRIAXone 1GM/10ml IVPUSH 10 ML IV ONE (14:30)
[2017-05-01] MEDS ORDERED: LABETALOL HCL 200 MG TAB PO SCH (15:00)
[2017-05-01] MEDS ORDERED: CARVEDILOL 12.5 MG TAB PO ONE (15:00)
[2017-05-01] MEDS: HYDROcodone-ACET 5/325MG TAB PO PRN ×2 (16:17→22:36)
[2017-05-01] MEDS ORDERED: hydrALAZINE HCL 25 MG TAB PO SCH (18:00)
[2017-05-01] MEDS: BOOST PLUS 8 ounce PO SCH (18:49)
[2017-05-01] MEDS: NIFEdipine ER 30 MG TAB PO SCH (19:54)
[2017-05-01 20:04] VITALS: BP 181/105
[2017-05-01] MEDS: hydrALAZINE HCL 25 MG TAB PO SCH (20:04)
[2017-05-01] MEDS: SODIUM CHLOR 0.9% PF (SALINE LOCK) 10ML VIAL IV SCH (21:19)
[2017-05-01] MEDS: GABAPENTIN 100 MG CAP PO SCH (21:20)
[2017-05-01] MEDS: CARVEDILOL 12.5 MG TAB PO SCH (21:20)
[2017-05-01] MEDS: ATORVASTATIN 20 MG TAB PO SCH (21:20)
[2017-05-01] MEDS ORDERED: ENALAPRIL MALEATE 2.5 MG TAB PO SCH (22:00)
[2017-05-01] MEDS ORDERED: ATORVASTATIN 20 MG TAB PO SCH (22:00)
[2017-05-01] MEDS ORDERED: METOPROLOL TARTRATE 25 MG TAB PO SCH (22:00)
[2017-05-01] MEDS ORDERED: cloNIDine HCL 0.1 MG TAB PO SCH (22:00)
[2017-05-01] MEDS ORDERED: NIFEdipine ER 30 MG TAB PO SCH (22:00)
[2017-05-01] MEDS ORDERED: SODIUM CHLOR 0.9% PF (SALINE LOCK) 10ML VIAL IV SCH (22:00)
[2017-05-01] MEDS ORDERED: NIFEdipine ER 30 MG TAB PO ONE (22:30)
[2017-05-02] MEDS: hydrALAZINE HCL 25 MG TAB PO SCH ×4 (00:16→18:02)
[2017-05-02] MEDS: NICARDIPINE 25MG/250ML BAG KIT 250 ML IV SCH (03:18)
[2017-05-02] MEDS: SODIUM CHLOR 0.9% PF (SALINE LOCK) 10ML VIAL IV SCH ×3 (06:00→22:44)
[2017-05-02 06:14] LABS: Basophils # (auto) 0.1 uL; Eosinophils # (auto) 0.2 uL
[2017-05-02 06:17] LABS: Basophils % (auto) 2.1 % (0.0-2.0); Eosinophils % (auto) 3.4 % (0.0-7.0); Hematocrit 21.7 % (41.0-53.0); Lymphocytes % (auto) 14.7 % (10.0-50.0); Mean Corpuscular Hgb Conc. 31.6 g/dL (32.0-36.0); Mean Corpuscular Volume 88.4 fL (80.0-100.0); Monocytes % (auto) 15.3 % (0.0-12.0); Neutrophils # (auto) 4.3 uL; Neutrophils % (auto) 64.5 % (37.0-80.0); Nucleated Red Blood Cells % 0.5 %; Platelet Count (auto) 203 10^3/uL (140-450); Red Blood Cells 2.46 10^6/uL (4.5-5.90); White Blood Cell 6.6 10^3/uL (4.4-10.8)
[2017-05-02 06:31] LABS: Hemoglobin 6.9 g/dL (13.5-17.5)
[2017-05-02 06:37] LABS: Albumin 2.3 g/dL (3.4-5.0); Bilirubin, Total 0.3 mg/dL (0.2-1.0); Calcium 8.6 mg/dL (8.5-10.1); Magnesium 2.5 mg/dL (1.6-2.6); Total Protein 7.9 g/dL (6.4-8.2)
[2017-05-02 06:48] LABS: Potassium 5.6 mmol/L (3.5-5.1)
[2017-05-02] MEDS: cloNIDine HCL 0.1 MG TAB PO SCH ×3 (06:53→22:00)
[2017-05-02] MEDS: GABAPENTIN 100 MG CAP PO SCH (06:54)
[2017-05-02] MEDS: NIFEdipine ER 30 MG TAB PO SCH ×2 (06:54→18:01)
[2017-05-02] MEDS: HYDROcodone-ACET 5/325MG TAB PO PRN ×3 (07:02→16:10)
[2017-05-02] MEDS: BOOST PLUS 8 ounce PO SCH ×3 (08:00→18:02)
[2017-05-02] MEDS ORDERED: SODIUM POLYSTYRENE SULF 15GM/60ML SUSP PO ONE (08:15)
[2017-05-02 09:00] VITALS: BP 152/86
[2017-05-02] MEDS ORDERED: NIFEdipine ER 30 MG TAB PO SCH (10:00)
[2017-05-02] MEDS ORDERED: ASPirin 81 mg TAB PO SCH (10:00)
[2017-05-02] MEDS ORDERED: CLOPIDOGREL BISULFATE 75 MG TAB PO SCH ×2 (10:00)
[2017-05-02] MEDS: cefTRIAXone 1GM/10ml IVPUSH 10 ML IV SCH (10:08)
[2017-05-02] MEDS: ASPirin 81 mg TAB PO SCH (10:09)
[2017-05-02] MEDS: B-COMPLEX W/ C & FOLIC ACID(NEPHROVITE TAB) PO SCH (10:09)
[2017-05-02] MEDS: DOCUSATE SOD 100 MG CAP PO SCH (10:09)
[2017-05-02] MEDS: FERROUS SULFATE 325 MG TAB PO SCH (10:10)
[2017-05-02] MEDS: OLANZapine 5 MG TAB PO SCH (10:10)
[2017-05-02] MEDS: CARVEDILOL 12.5 MG TAB PO SCH ×2 (10:10→22:00)
[2017-05-02] MEDS ORDERED: SODIUM CHL 0.9% 1000 ML BAG XX ONE (11:15)
[2017-05-02] MEDS: ACETAMINOPHEN 325 MG TAB PO PRN ×2 (11:41→21:32)
[2017-05-02] MEDS: SEVELAMER 800 MG TAB PO SCH ×2 (12:18→18:02)
[2017-05-02 13:00] VITALS: BP 154/86
[2017-05-02] MEDS ORDERED: HEPARIN SODIUM (PORCINE) 5000 UNITS/ML 1ML VIAL ONE (14:37)
[2017-05-02] MEDS ORDERED: HEPARIN SODIUM (PORCINE) 5000 UNITS/ML 1ML VIAL IV ONE (15:30)
[2017-05-02 17:00] VITALS: BP 133/77
[2017-05-02] MEDS: GABAPENTIN 300 MG CAP PO SCH (18:00)
[2017-05-02] MEDS ORDERED: GABAPENTIN 100 MG CAP PO SCH (18:00)
[2017-05-02] MEDS: ATORVASTATIN 20 MG TAB PO SCH (22:00)
[2017-05-02 22:05] VITALS: BP 153/86
[2017-05-02 23:07] VITALS: BP 153/86
[2017-05-02 23:22] VITALS: BP 198/114
[2017-05-03] MEDS: hydrALAZINE HCL 25 MG TAB PO SCH ×4 (00:17→18:27)
[2017-05-03 01:54] VITALS: BP 160/89
[2017-05-03] MEDS: ACETAMINOPHEN 325 MG TAB PO PRN (02:18)
[2017-05-03 05:20] VITALS: BP 163/83
[2017-05-03 05:34] LABS: BUN/Creatinine Ratio 6.7; Potassium 4.4 mmol/L (3.5-5.1)
[2017-05-03] MEDS: SODIUM CHLOR 0.9% PF (SALINE LOCK) 10ML VIAL IV SCH ×3 (06:37→22:02)
[2017-05-03] MEDS: NIFEdipine ER 30 MG TAB PO SCH ×2 (06:38→18:28)
[2017-05-03] MEDS: cloNIDine HCL 0.1 MG TAB PO SCH ×3 (06:38→22:03)
[2017-05-03 07:44] LABS: Basophils # (auto) 0.1 uL; Basophils % (auto) 1.7 % (0.0-2.0); Eosinophils # (auto) 0.2 uL; Eosinophils % (auto) 2.6 % (0.0-7.0); Hematocrit 21.7 % (41.0-53.0); Hemoglobin 7.1 g/dL (13.5-17.5); Lymphocytes % (auto) 14.5 % (10.0-50.0); Mean Corpuscular Hemoglobin 28.6 pg (28.0-32.0); Mean Corpuscular Hgb Conc. 32.7 g/dL (32.0-36.0); Mean Corpuscular Volume 87.6 fL (80.0-100.0); Monocytes # (auto) 1.1 uL; Monocytes % (auto) 15.6 % (0.0-12.0); Neutrophils # (auto) 4.7 uL; Neutrophils % (auto) 65.6 % (37.0-80.0); Nucleated Red Blood Cells % 0.3 %; Platelet Count (auto) 259 10^3/uL (140-450); Red Blood Cells 2.48 10^6/uL (4.5-5.90); Red Cell Distribution Width 19.3 % (11.8-14.3); White Blood Cell 7.2 10^3/uL (4.4-10.8)
[2017-05-03 08:20] VITALS: BP 153/89
[2017-05-03] MEDS: BOOST PLUS 8 ounce PO SCH ×3 (10:06→18:28)
[2017-05-03] MEDS: SEVELAMER 800 MG TAB PO SCH ×3 (10:07→18:27)
[2017-05-03] MEDS: ASPirin 81 mg TAB PO SCH (10:07)
[2017-05-03] MEDS: FERROUS SULFATE 325 MG TAB PO SCH (10:08)
[2017-05-03] MEDS: B-COMPLEX W/ C & FOLIC ACID(NEPHROVITE TAB) PO SCH (10:08)
[2017-05-03] MEDS: HYDROcodone-ACET 5/325MG TAB PO PRN (10:08)
[2017-05-03] MEDS: DOCUSATE SOD 100 MG CAP PO SCH (10:08)
[2017-05-03] MEDS: OLANZapine 5 MG TAB PO SCH (10:08)
[2017-05-03] MEDS: cefTRIAXone 1GM/10ml IVPUSH 10 ML IV SCH (10:09)
[2017-05-03] MEDS: CARVEDILOL 12.5 MG TAB PO SCH ×2 (10:09→22:03)
[2017-05-03] MEDS ORDERED: SODIUM CHL 0.9% 1000 ML BAG XX ONE (11:15)
[2017-05-03] MEDS ORDERED: VANCOMYCIN PER PHARMACY 0 MG IV SCH (13:15)
[2017-05-03] MEDS ORDERED: HALOPERIDOL LACTATE 5 MG/ML INJ VIAL IV PRN (13:15)
[2017-05-03] MEDS: metroNIDAZOLE 500 MG TAB PO SCH ×2 (13:37→22:03)
[2017-05-03] MEDS ORDERED: VANCOMYCIN 1,250 MG in D5W 5% 250 ML IV ONE (14:30)
[2017-05-03 15:35] LABS: INR 1.03 (0.9-1.15); Partial Thromboplastin Time 30.4 sec (22.64-33.71); Prothrombin Time 11.2 sec (9.37-12.3)
[2017-05-03 16:27] VITALS: BP 158/93
[2017-05-03] MEDS: GABAPENTIN 300 MG CAP PO SCH (18:27)
[2017-05-03 21:22] LABS: Urine Bacteria NONE SEEN /hpf (None Seen); Urine Blood Negative /uL (Negative); Urine Specific Gravity 1.007 (1.001-1.035); Urine WBC 5 /hpf (0 - 3)
[2017-05-03 22:00] VITALS: BP 162/101
[2017-05-03] MEDS: ATORVASTATIN 20 MG TAB PO SCH (22:04)
[2017-05-03 22:23] VITALS: BP 156/58
[2017-05-04] VITALS (7 sets, daily range): BP systolic 146–167; BP diastolic 72–111
[2017-05-04] MEDS: hydrALAZINE HCL 25 MG TAB PO SCH ×5 (03:01→23:46)
[2017-05-04 05:54] LABS: Basophils # (auto) 0.1 uL; Eosinophils # (auto) 0.2 uL; Eosinophils % (auto) 2.1 % (0.0-7.0); Lymphocytes # (auto) 1.3 uL; Monocytes # (auto) 1.4 uL
[2017-05-04 05:59] LABS: Basophils % (auto) 1.2 % (0.0-2.0); Hematocrit 20.8 % (41.0-53.0); Lymphocytes % (auto) 13.6 % (10.0-50.0); Mean Corpuscular Hemoglobin 28.1 pg (28.0-32.0); Mean Corpuscular Hgb Conc. 31.8 g/dL (32.0-36.0); Mean Corpuscular Volume 88.3 fL (80.0-100.0); Monocytes % (auto) 14.9 % (0.0-12.0); Neutrophils # (auto) 6.3 uL; Neutrophils % (auto) 68.2 % (37.0-80.0); Platelet Count (auto) 275 10^3/uL (140-450); Red Blood Cells 2.36 10^6/uL (4.5-5.90); Red Cell Distribution Width 19.2 % (11.8-14.3); White Blood Cell 9.3 10^3/uL (4.4-10.8)
[2017-05-04] MEDS: cloNIDine HCL 0.1 MG TAB PO SCH ×3 (06:00→21:58)
[2017-05-04] MEDS: SODIUM CHLOR 0.9% PF (SALINE LOCK) 10ML VIAL IV SCH ×3 (06:00→21:57)
[2017-05-04 06:04] LABS: Hemoglobin 6.6 g/dL (13.5-17.5)
[2017-05-04 06:24] LABS: BUN/Creatinine Ratio 7.2; Calcium 9.1 mg/dL (8.5-10.1); Potassium 5.4 mmol/L (3.5-5.1)
[2017-05-04] MEDS: HYDROcodone-ACET 5/325MG TAB PO PRN (06:36)
[2017-05-04] MEDS: NIFEdipine ER 30 MG TAB PO SCH ×2 (06:52→18:15)
[2017-05-04] MEDS: metroNIDAZOLE 500 MG TAB PO SCH ×3 (06:52→21:59)
[2017-05-04] MEDS: BOOST PLUS 8 ounce PO SCH ×3 (07:51→18:00)
[2017-05-04] MEDS: SEVELAMER 800 MG TAB PO SCH ×3 (08:00→17:45)
[2017-05-04] MEDS ORDERED: EPOETIN ALFA 10,000 UNIT/1 ML VIAL IV ONE ×2 (08:15→08:30)
[2017-05-04] MEDS ORDERED: SODIUM CHL 0.9% 1000 ML BAG XX ONE ×2 (08:15→09:00)
[2017-05-04] MEDS ORDERED: HEPARIN SODIUM (PORCINE) 5000 UNITS/ML 1ML VIAL ONE (10:35)
[2017-05-04] MEDS: B-COMPLEX W/ C & FOLIC ACID(NEPHROVITE TAB) PO SCH (17:01)
[2017-05-04] MEDS: ASPirin 81 mg TAB PO SCH (17:01)
[2017-05-04] MEDS: FERROUS SULFATE 325 MG TAB PO SCH (17:02)
[2017-05-04] MEDS: DOCUSATE SOD 100 MG CAP PO SCH (17:02)
[2017-05-04] MEDS: OLANZapine 5 MG TAB PO SCH (17:02)
[2017-05-04] MEDS: CARVEDILOL 12.5 MG TAB PO SCH ×2 (17:03→21:59)
[2017-05-04] MEDS: GABAPENTIN 300 MG CAP PO SCH (18:14)
[2017-05-04] MEDS: ATORVASTATIN 20 MG TAB PO SCH (21:59)
[2017-05-04] MEDS ORDERED: LINEZOLID 600MG/300ML 300 ML IV SCH (22:00)
[2017-05-05] MEDS: SODIUM CHLOR 0.9% PF (SALINE LOCK) 10ML VIAL IV SCH ×3 (05:33→21:16)
[2017-05-05] MEDS: hydrALAZINE HCL 25 MG TAB PO SCH ×3 (05:34→18:16)
[2017-05-05] MEDS: metroNIDAZOLE 500 MG TAB PO SCH ×3 (05:34→21:14)
[2017-05-05] MEDS: cloNIDine HCL 0.1 MG TAB PO SCH ×3 (05:34→21:16)
[2017-05-05 05:36] VITALS: BP 143/79
[2017-05-05] MEDS: NIFEdipine ER 30 MG TAB PO SCH ×3 (05:38→18:15)
[2017-05-05 06:17] LABS: % Iron Saturation 9.6 % (20-55)
[2017-05-05 09:00] VITALS: BP 132/79
[2017-05-05] MEDS: B-COMPLEX W/ C & FOLIC ACID(NEPHROVITE TAB) PO SCH (09:37)
[2017-05-05] MEDS: FERROUS SULFATE 325 MG TAB PO SCH (09:37)
[2017-05-05] MEDS: BOOST PLUS 8 ounce PO SCH ×3 (09:37→18:16)
[2017-05-05] MEDS: SEVELAMER 800 MG TAB PO SCH ×3 (09:37→18:16)
[2017-05-05] MEDS: OLANZapine 5 MG TAB PO SCH (09:37)
[2017-05-05] MEDS: DOCUSATE SOD 100 MG CAP PO SCH (09:38)
[2017-05-05] MEDS: CARVEDILOL 12.5 MG TAB PO SCH ×2 (09:38→21:15)
[2017-05-05] MEDS: ASPirin 81 mg TAB PO SCH (09:38)
[2017-05-05 12:32] VITALS: BP 131/74
[2017-05-05] MEDS: HYDROcodone-ACET 5/325MG TAB PO PRN (13:13)
[2017-05-05 17:00] VITALS: BP 139/80
[2017-05-05] MEDS: GABAPENTIN 300 MG CAP PO SCH (18:15)
[2017-05-05 20:00] VITALS: BP 149/74
[2017-05-05] MEDS: ATORVASTATIN 20 MG TAB PO SCH (21:15)
[2017-05-05 21:45] VITALS: BP 149/74
[2017-05-06] VITALS (8 sets, daily range): BP systolic 123–146; BP diastolic 69–80
[2017-05-06] MEDS: hydrALAZINE HCL 25 MG TAB PO SCH ×4 (00:07→18:00)
[2017-05-06 05:48] LABS: Albumin 2.3 g/dL (3.4-5.0); Calcium 8.8 mg/dL (8.5-10.1)
[2017-05-06 05:57] LABS: BUN/Creatinine Ratio 8.4; Bilirubin, Total 0.3 mg/dL (0.2-1.0); Total Protein 8.4 g/dL (6.4-8.2)
[2017-05-06] MEDS: metroNIDAZOLE 500 MG TAB PO SCH ×3 (06:09→22:02)
[2017-05-06] MEDS: cloNIDine HCL 0.1 MG TAB PO SCH ×3 (06:09→22:01)
[2017-05-06] MEDS: SODIUM CHLOR 0.9% PF (SALINE LOCK) 10ML VIAL IV SCH ×3 (06:10→22:00)
[2017-05-06] MEDS: NIFEdipine ER 30 MG TAB PO SCH ×2 (06:11→20:45)
[2017-05-06 06:22] LABS: Potassium 6.5 mmol/L (3.5-5.1)
[2017-05-06] MEDS: HYDROcodone-ACET 5/325MG TAB PO PRN ×2 (07:02→14:24)
[2017-05-06] MEDS: BOOST PLUS 8 ounce PO SCH ×3 (08:00→18:00)
[2017-05-06] MEDS: SEVELAMER 800 MG TAB PO SCH ×3 (08:33→20:45)
[2017-05-06] MEDS ORDERED: SODIUM CHL 0.9% 1000 ML BAG XX ONE (09:00)
[2017-05-06] MEDS: OLANZapine 5 MG TAB PO SCH (11:03)
[2017-05-06] MEDS: B-COMPLEX W/ C & FOLIC ACID(NEPHROVITE TAB) PO SCH (11:03)
[2017-05-06] MEDS: FERROUS SULFATE 325 MG TAB PO SCH (11:03)
[2017-05-06] MEDS: CARVEDILOL 12.5 MG TAB PO SCH ×2 (11:04→22:01)
[2017-05-06] MEDS: DOCUSATE SOD 100 MG CAP PO SCH (11:05)
[2017-05-06] MEDS: ASPirin 81 mg TAB PO SCH (11:05)
[2017-05-06] MEDS ORDERED: EPOETIN ALFA 10,000 UNIT/1 ML VIAL IV ONE (12:30)
[2017-05-06] MEDS ORDERED: VANCOMYCIN PER PHARMACY 0 MG IV SCH (13:30)
[2017-05-06] MEDS: AMPICILLIN SOD 2GM INJ 2 GM in SODIUM CHL 0.9% 100 ML IV SCH ×3 (14:34→22:00)
[2017-05-06] MEDS ORDERED: VANCOMYCIN 1GM/250ML 250 ML IV ONE ×3 (16:00→20:00)
[2017-05-06] MEDS: GABAPENTIN 300 MG CAP PO SCH (20:44)
[2017-05-06] MEDS: ATORVASTATIN 20 MG TAB PO SCH (22:02)
[2017-05-07] VITALS (7 sets, daily range): BP systolic 110–128; BP diastolic 64–69
[2017-05-07] MEDS: hydrALAZINE HCL 25 MG TAB PO SCH ×5 (00:29→23:58)
[2017-05-07] MEDS: AMPICILLIN SOD 2GM INJ 2 GM in SODIUM CHL 0.9% 100 ML IV SCH ×4 (03:39→20:56)
[2017-05-07 05:41] LABS: Basophils # (auto) 0.1 uL; Eosinophils # (auto) 0.1 uL; Eosinophils % (auto) 2.4 % (0.0-7.0); Hematocrit 24.9 % (41.0-53.0); Hemoglobin 8.1 g/dL (13.5-17.5); Lymphocytes # (auto) 0.6 uL; Lymphocytes % (auto) 10.1 % (10.0-50.0); Mean Corpuscular Hemoglobin 28.5 pg (28.0-32.0); Mean Corpuscular Hgb Conc. 32.4 g/dL (32.0-36.0); Mean Corpuscular Volume 87.9 fL (80.0-100.0); Monocytes # (auto) 0.8 uL; Neutrophils # (auto) 4.2 uL; Neutrophils % (auto) 72.5 % (37.0-80.0); Nucleated Red Blood Cells % 0.1 %; Platelet Count (auto) 395 10^3/uL (140-450); Red Blood Cells 2.83 10^6/uL (4.5-5.90); Red Cell Distribution Width 17.6 % (11.8-14.3); White Blood Cell 5.8 10^3/uL (4.4-10.8)
[2017-05-07] MEDS: SODIUM CHLOR 0.9% PF (SALINE LOCK) 10ML VIAL IV SCH ×3 (06:13→21:50)
[2017-05-07] MEDS: metroNIDAZOLE 500 MG TAB PO SCH ×3 (06:14→21:45)
[2017-05-07] MEDS: cloNIDine HCL 0.1 MG TAB PO SCH ×3 (06:14→21:46)
[2017-05-07] MEDS: NIFEdipine ER 30 MG TAB PO SCH ×2 (06:15→18:04)
[2017-05-07] MEDS: HYDROcodone-ACET 5/325MG TAB PO PRN ×2 (06:16→14:09)
[2017-05-07] MEDS: BOOST PLUS 8 ounce PO SCH ×3 (08:00→18:06)
[2017-05-07] MEDS: SEVELAMER 800 MG TAB PO SCH ×3 (08:39→18:05)
[2017-05-07] MEDS: OLANZapine 5 MG TAB PO SCH (11:18)
[2017-05-07] MEDS: FERROUS SULFATE 325 MG TAB PO SCH (11:19)
[2017-05-07] MEDS: DOCUSATE SOD 100 MG CAP PO SCH (11:19)
[2017-05-07] MEDS: B-COMPLEX W/ C & FOLIC ACID(NEPHROVITE TAB) PO SCH (11:19)
[2017-05-07] MEDS: ASPirin 81 mg TAB PO SCH (11:20)
[2017-05-07] MEDS: CARVEDILOL 12.5 MG TAB PO SCH ×2 (11:20→21:46)
[2017-05-07 15:32] LABS: BUN/Creatinine Ratio 7.3; Calcium 9.2 mg/dL (8.5-10.1)
[2017-05-07 15:37] LABS: Potassium 5.9 mmol/L (3.5-5.1)
[2017-05-07] MEDS: GABAPENTIN 300 MG CAP PO SCH (18:06)
[2017-05-07] MEDS: FLORASTOR (S. BOULARDII) 250 MG CAP PO SCH (21:45)
[2017-05-07] MEDS: ATORVASTATIN 20 MG TAB PO SCH (21:45)
[2017-05-08] VITALS (7 sets, daily range): BP systolic 115–137; BP diastolic 66–71
[2017-05-08] MEDS: AMPICILLIN SOD 2GM INJ 2 GM in SODIUM CHL 0.9% 100 ML IV SCH ×4 (03:09→20:59)
[2017-05-08] MEDS: HYDROcodone-ACET 5/325MG TAB PO PRN (05:17)
[2017-05-08 05:27] LABS: Eosinophils # (auto) 0.3 uL; Monocytes # (auto) 0.8 uL
[2017-05-08 05:30] LABS: Basophils # (auto) 0.2 uL; Basophils % (auto) 3.3 % (0.0-2.0); Hematocrit 24.1 % (41.0-53.0); Hemoglobin 7.9 g/dL (13.5-17.5); Lymphocytes # (auto) 0.7 uL; Lymphocytes % (auto) 11.9 % (10.0-50.0); Mean Corpuscular Hemoglobin 28.7 pg (28.0-32.0); Mean Corpuscular Hgb Conc. 32.7 g/dL (32.0-36.0); Mean Corpuscular Volume 87.7 fL (80.0-100.0); Monocytes % (auto) 13.4 % (0.0-12.0); Neutrophils # (auto) 3.8 uL; Neutrophils % (auto) 66.4 % (37.0-80.0); Platelet Count (auto) 424 10^3/uL (140-450); Red Blood Cells 2.74 10^6/uL (4.5-5.90); Red Cell Distribution Width 17.5 % (11.8-14.3); White Blood Cell 5.7 10^3/uL (4.4-10.8)
[2017-05-08 05:51] LABS: BUN/Creatinine Ratio 7.5; Calcium 9.4 mg/dL (8.5-10.1); Potassium 5.5 mmol/L (3.5-5.1)
[2017-05-08] MEDS: SODIUM CHLOR 0.9% PF (SALINE LOCK) 10ML VIAL IV SCH ×3 (06:00→22:29)
[2017-05-08] MEDS: cloNIDine HCL 0.1 MG TAB PO SCH ×3 (06:48→22:29)
[2017-05-08] MEDS: NIFEdipine ER 30 MG TAB PO SCH ×2 (06:49→17:23)
[2017-05-08] MEDS: hydrALAZINE HCL 25 MG TAB PO SCH ×4 (06:50→23:52)
[2017-05-08] MEDS: metroNIDAZOLE 500 MG TAB PO SCH ×3 (06:50→22:27)
[2017-05-08] MEDS: SEVELAMER 800 MG TAB PO SCH ×3 (09:23→17:23)
[2017-05-08] MEDS: BOOST PLUS 8 ounce PO SCH ×3 (09:24→17:22)
[2017-05-08] MEDS: FLORASTOR (S. BOULARDII) 250 MG CAP PO SCH ×2 (09:41→22:28)
[2017-05-08] MEDS: DOCUSATE SOD 100 MG CAP PO SCH (09:41)
[2017-05-08] MEDS: B-COMPLEX W/ C & FOLIC ACID(NEPHROVITE TAB) PO SCH (09:42)
[2017-05-08] MEDS: ASPirin 81 mg TAB PO SCH (09:42)
[2017-05-08] MEDS: OLANZapine 5 MG TAB PO SCH (09:42)
[2017-05-08] MEDS: FERROUS SULFATE 325 MG TAB PO SCH (09:42)
[2017-05-08] MEDS: CARVEDILOL 12.5 MG TAB PO SCH ×2 (09:43→22:28)
[2017-05-08] MEDS: GABAPENTIN 300 MG CAP PO SCH (17:22)
[2017-05-08] MEDS ORDERED: TPN PER PHARMACY IV NR ×12 (20:00)
[2017-05-08] MEDS: ATORVASTATIN 20 MG TAB PO SCH (22:28)
[2017-05-09] MEDS: AMPICILLIN SOD 2GM INJ 2 GM in SODIUM CHL 0.9% 100 ML IV SCH ×4 (03:09→21:44)
[2017-05-09 05:00] VITALS: BP 121/68
[2017-05-09] MEDS: metroNIDAZOLE 500 MG TAB PO SCH ×3 (06:28→21:44)
[2017-05-09] MEDS: cloNIDine HCL 0.1 MG TAB PO SCH ×3 (06:28→21:45)
[2017-05-09] MEDS: NIFEdipine ER 30 MG TAB PO SCH ×2 (06:29→18:19)
[2017-05-09] MEDS: hydrALAZINE HCL 25 MG TAB PO SCH ×3 (06:29→18:19)
[2017-05-09] MEDS: SODIUM CHLOR 0.9% PF (SALINE LOCK) 10ML VIAL IV SCH ×3 (06:29→21:45)
[2017-05-09 06:37] LABS: Basophils % (auto) 0.9 % (0.0-2.0); Eosinophils # (auto) 0.3 uL; Hemoglobin 7.3 g/dL (13.5-17.5); Lymphocytes # (auto) 0.9 uL; Monocytes # (auto) 0.8 uL; Monocytes % (auto) 14.2 % (0.0-12.0)
[2017-05-09 06:40] LABS: Basophils # (auto) 0 uL; Eosinophils % (auto) 6.2 % (0.0-7.0); Hematocrit 22.8 % (41.0-53.0); Lymphocytes % (auto) 16.1 % (10.0-50.0); Mean Corpuscular Hemoglobin 28.2 pg (28.0-32.0); Mean Corpuscular Hgb Conc. 32.2 g/dL (32.0-36.0); Mean Corpuscular Volume 87.7 fL (80.0-100.0); Neutrophils # (auto) 3.5 uL; Neutrophils % (auto) 62.6 % (37.0-80.0); Platelet Count (auto) 423 10^3/uL (140-450); Red Cell Distribution Width 17.4 % (11.8-14.3); White Blood Cell 5.6 10^3/uL (4.4-10.8)
[2017-05-09 06:51] LABS: BUN/Creatinine Ratio 8.6; Calcium 8.9 mg/dL (8.5-10.1)
[2017-05-09 07:10] LABS: Potassium 6.8 mmol/L (3.5-5.1)
[2017-05-09] MEDS ORDERED: InsuLIN REG 1unit/0.01ml Soln (100units/ml) IV ONE (07:30)
[2017-05-09] MEDS: SODIUM POLYSTYRENE SULF 15GM/60ML SUSP PO ONE ×2 (07:30→09:11)
[2017-05-09] MEDS ORDERED: DEXTROSE (50%) 50ML SYRG IV ONE (07:30)
[2017-05-09] MEDS ORDERED: ALBUTEROL SULF 2.5 MG/0.5ML(0.5%) NEB SOLN NEB ONE (07:30)
[2017-05-09] MEDS ORDERED: CALCIUM GLUC 4.65meq/50ml D5AE 50 ML IV ONE (07:30)
[2017-05-09] MEDS ORDERED: SODIUM BICARBONATE 8.4 % INJ 50ML VIAL IV ONE (07:30)
[2017-05-09] MEDS: BOOST PLUS 8 ounce PO SCH ×3 (08:30→18:19)
[2017-05-09] MEDS: SEVELAMER 800 MG TAB PO SCH ×3 (08:31→18:18)
[2017-05-09 09:00] VITALS: BP 145/66
[2017-05-09] MEDS: CARVEDILOL 12.5 MG TAB PO SCH ×2 (10:00→21:46)
[2017-05-09] MEDS ORDERED: EPOETIN ALFA 10,000 UNIT/1 ML VIAL IV ONE (12:00)
[2017-05-09 13:29] VITALS: BP 109/65
[2017-05-09] MEDS: ASPirin 81 mg TAB PO SCH (13:44)
[2017-05-09] MEDS: FLORASTOR (S. BOULARDII) 250 MG CAP PO SCH ×2 (13:44→21:44)
[2017-05-09] MEDS: DOCUSATE SOD 100 MG CAP PO SCH (13:44)
[2017-05-09] MEDS: B-COMPLEX W/ C & FOLIC ACID(NEPHROVITE TAB) PO SCH (13:44)
[2017-05-09] MEDS: FERROUS SULFATE 325 MG TAB PO SCH (13:44)
[2017-05-09] MEDS: OLANZapine 5 MG TAB PO SCH (13:45)
[2017-05-09] MEDS: CEFTRIAXONE SODIUM 2 GM in D5W 5% 50 ML IV SCH (14:12)
[2017-05-09 16:54] VITALS: BP 123/63
[2017-05-09] MEDS: GABAPENTIN 300 MG CAP PO SCH (18:18)
[2017-05-09 20:00] VITALS: BP 139/96
[2017-05-09 21:30] VITALS: BP 139/96
[2017-05-09] MEDS: ATORVASTATIN 20 MG TAB PO SCH (21:44)
[2017-05-10] MEDS: hydrALAZINE HCL 25 MG TAB PO SCH ×4 (00:04→17:53)
[2017-05-10] MEDS: CEFTRIAXONE SODIUM 2 GM in D5W 5% 50 ML IV SCH ×2 (00:04→12:46)
[2017-05-10] MEDS: AMPICILLIN SOD 2GM INJ 2 GM in SODIUM CHL 0.9% 100 ML IV SCH ×6 (02:05→21:40)
[2017-05-10 04:38] VITALS: BP 111/54
[2017-05-10 06:07] LABS: BUN/Creatinine Ratio 8.1; Basophils # (auto) 0.1 uL; Calcium 8.8 mg/dL (8.5-10.1); Hematocrit 21.9 % (41.0-53.0); Hemoglobin 7.1 g/dL (13.5-17.5); Lymphocytes # (auto) 1.1 uL; Mean Corpuscular Hgb Conc. 32.5 g/dL (32.0-36.0); Monocytes # (auto) 0.8 uL; Nucleated Red Blood Cells % 0.2 %
[2017-05-10] MEDS: SODIUM CHLOR 0.9% PF (SALINE LOCK) 10ML VIAL IV SCH ×3 (06:09→21:40)
[2017-05-10] MEDS: metroNIDAZOLE 500 MG TAB PO SCH ×3 (06:10→21:41)
[2017-05-10] MEDS: cloNIDine HCL 0.1 MG TAB PO SCH ×3 (06:10→21:40)
[2017-05-10 06:11] LABS: Eosinophils # (auto) 0.3 uL; Eosinophils % (auto) 5.4 % (0.0-7.0); Lymphocytes % (auto) 23.8 % (10.0-50.0); Mean Corpuscular Hemoglobin 28.7 pg (28.0-32.0); Mean Corpuscular Volume 88.3 fL (80.0-100.0); Monocytes % (auto) 16.6 % (0.0-12.0); Neutrophils # (auto) 2.5 uL; Neutrophils % (auto) 52.2 % (37.0-80.0); Platelet Count (auto) 424 10^3/uL (140-450); Red Blood Cells 2.48 10^6/uL (4.5-5.90); Red Cell Distribution Width 17.3 % (11.8-14.3); White Blood Cell 4.7 10^3/uL (4.4-10.8)
[2017-05-10 06:12] LABS: Potassium 6.1 mmol/L (3.5-5.1)
[2017-05-10] MEDS: NIFEdipine ER 30 MG TAB PO SCH ×2 (06:16→17:53)
[2017-05-10] MEDS ORDERED: SODIUM POLYSTYRENE SULF 15GM/60ML SUSP PO ONE (08:15)
[2017-05-10 09:00] VITALS: BP 121/67
[2017-05-10] MEDS: BOOST PLUS 8 ounce PO SCH ×3 (10:18→17:53)
[2017-05-10] MEDS: SEVELAMER 800 MG TAB PO SCH ×3 (10:18→17:53)
[2017-05-10] MEDS: FERROUS SULFATE 325 MG TAB PO SCH (10:19)
[2017-05-10] MEDS: ASPirin 81 mg TAB PO SCH (10:19)
[2017-05-10] MEDS: DOCUSATE SOD 100 MG CAP PO SCH (10:19)
[2017-05-10] MEDS: OLANZapine 5 MG TAB PO SCH (10:20)
[2017-05-10] MEDS: FLORASTOR (S. BOULARDII) 250 MG CAP PO SCH ×2 (10:20→21:41)
[2017-05-10] MEDS: B-COMPLEX W/ C & FOLIC ACID(NEPHROVITE TAB) PO SCH (10:21)
[2017-05-10] MEDS: CARVEDILOL 12.5 MG TAB PO SCH ×2 (10:22→21:41)
[2017-05-10 12:55] VITALS: BP 106/51
[2017-05-10 16:49] VITALS: BP 156/83
[2017-05-10] MEDS: GABAPENTIN 300 MG CAP PO SCH (17:53)
[2017-05-10] MEDS: ATORVASTATIN 20 MG TAB PO SCH (21:42)
[2017-05-10 22:00] VITALS: BP 158/83
[2017-05-11] MEDS: hydrALAZINE HCL 25 MG TAB PO SCH ×3 (00:25→12:00)
[2017-05-11] MEDS: CEFTRIAXONE SODIUM 2 GM in D5W 5% 50 ML IV SCH ×2 (00:25→12:00)
[2017-05-11] MEDS: AMPICILLIN SOD 2GM INJ 2 GM in SODIUM CHL 0.9% 100 ML IV SCH ×6 (02:00→21:51)
[2017-05-11 05:17] VITALS: BP 154/99
[2017-05-11] MEDS: SODIUM CHLOR 0.9% PF (SALINE LOCK) 10ML VIAL IV SCH ×3 (05:22→21:49)
[2017-05-11] MEDS: cloNIDine HCL 0.1 MG TAB PO SCH ×4 (05:23→21:54)
[2017-05-11] MEDS: metroNIDAZOLE 500 MG TAB PO SCH ×3 (05:24→21:49)
[2017-05-11 05:46] LABS: Basophils # (auto) 0.1 uL; Basophils % (auto) 2.3 % (0.0-2.0); Lymphocytes # (auto) 1.2 uL; Monocytes # (auto) 0.9 uL
[2017-05-11 05:48] LABS: Eosinophils # (auto) 0.3 uL; Eosinophils % (auto) 5.3 % (0.0-7.0); Hematocrit 21.9 % (41.0-53.0); Lymphocytes % (auto) 21.6 % (10.0-50.0); Mean Corpuscular Hemoglobin 28.2 pg (28.0-32.0); Mean Corpuscular Hgb Conc. 31.9 g/dL (32.0-36.0); Mean Corpuscular Volume 88.3 fL (80.0-100.0); Monocytes % (auto) 16.1 % (0.0-12.0); Neutrophils % (auto) 54.7 % (37.0-80.0); Nucleated Red Blood Cells % 0.1 %; Platelet Count (auto) 414 10^3/uL (140-450); Red Blood Cells 2.48 10^6/uL (4.5-5.90); Red Cell Distribution Width 17.6 % (11.8-14.3); White Blood Cell 5.5 10^3/uL (4.4-10.8)
[2017-05-11] MEDS: NIFEdipine ER 30 MG TAB PO SCH (06:27)
[2017-05-11 06:37] LABS: BUN/Creatinine Ratio 7.9; Calcium 9.2 mg/dL (8.5-10.1)
[2017-05-11 06:50] LABS: Potassium 5.8 mmol/L (3.5-5.1)
[2017-05-11] MEDS ORDERED: SODIUM POLYSTYRENE SULF 15GM/60ML SUSP PO ONE (07:00)
[2017-05-11] MEDS ORDERED: InsuLIN REG 1unit/0.01ml Soln (100units/ml) IV ONE (07:00)
[2017-05-11] MEDS ORDERED: CALCIUM GLUC 4.65meq/50ml D5AE 50 ML IV ONE (07:00)
[2017-05-11] MEDS ORDERED: DEXTROSE (50%) 50ML SYRG IV ONE (07:00)
[2017-05-11] MEDS: SEVELAMER 800 MG TAB PO SCH ×2 (08:00→12:00)
[2017-05-11] MEDS: BOOST PLUS 8 ounce PO SCH ×2 (08:33→12:00)
[2017-05-11 09:00] VITALS: BP 168/73
[2017-05-11] MEDS: FLORASTOR (S. BOULARDII) 250 MG CAP PO SCH ×2 (10:00→21:49)
[2017-05-11] MEDS: B-COMPLEX W/ C & FOLIC ACID(NEPHROVITE TAB) PO SCH (10:00)
[2017-05-11] MEDS: OLANZapine 5 MG TAB PO SCH (10:00)
[2017-05-11] MEDS: ASPirin 81 mg TAB PO SCH (10:00)
[2017-05-11] MEDS: DOCUSATE SOD 100 MG CAP PO SCH (10:00)
[2017-05-11] MEDS: FERROUS SULFATE 325 MG TAB PO SCH (10:00)
[2017-05-11] MEDS: CARVEDILOL 12.5 MG TAB PO SCH ×2 (10:00→21:49)
[2017-05-11] MEDS ORDERED: EPOETIN ALFA 10,000 UNIT/1 ML VIAL IV ONE (11:15)
[2017-05-11 12:00] VITALS: BP_SYST 149; BP_SYST 171; BP_DIAS 103
[2017-05-11 12:15] VITALS: BP 167/114
[2017-05-11] MEDS: ATORVASTATIN 20 MG TAB PO SCH (21:50)
[2017-05-11 22:43] VITALS: BP 156/95
[2017-05-12] MEDS: hydrALAZINE HCL 25 MG TAB PO SCH ×5 (00:40→17:49)
[2017-05-12] MEDS: CEFTRIAXONE SODIUM 2 GM in D5W 5% 50 ML IV SCH ×2 (00:40→11:31)
[2017-05-12] MEDS: AMPICILLIN SOD 2GM INJ 2 GM in SODIUM CHL 0.9% 100 ML IV SCH ×6 (01:40→22:58)
[2017-05-12 04:22] VITALS: BP 141/96
[2017-05-12] MEDS: cloNIDine HCL 0.1 MG TAB PO SCH ×3 (06:01→22:54)
[2017-05-12] MEDS: SODIUM CHLOR 0.9% PF (SALINE LOCK) 10ML VIAL IV SCH ×3 (06:01→22:00)
[2017-05-12] MEDS: metroNIDAZOLE 500 MG TAB PO SCH ×3 (06:02→22:53)
[2017-05-12 06:18] LABS: BUN/Creatinine Ratio 6.9; Calcium 9.6 mg/dL (8.5-10.1); Potassium 5.2 mmol/L (3.5-5.1)
[2017-05-12] MEDS: NIFEdipine ER 30 MG TAB PO SCH ×3 (06:34→17:50)
[2017-05-12] MEDS: GABAPENTIN 300 MG CAP PO SCH ×2 (07:19→17:50)
[2017-05-12] MEDS: BOOST PLUS 8 ounce PO SCH ×4 (07:19→17:50)
[2017-05-12] MEDS: SEVELAMER 800 MG TAB PO SCH ×4 (07:20→17:50)
[2017-05-12 07:45] LABS: Eosinophils # (auto) 0.3 uL; Mean Corpuscular Volume 87.6 fL (80.0-100.0); Nucleated Red Blood Cells % 0.2 %
[2017-05-12 07:48] LABS: Basophils # (auto) 0.2 uL; Basophils % (auto) 2.8 % (0.0-2.0); Eosinophils % (auto) 5.1 % (0.0-7.0); Hemoglobin 8.5 g/dL (13.5-17.5); Lymphocytes # (auto) 1.3 uL; Lymphocytes % (auto) 21.7 % (10.0-50.0); Mean Corpuscular Hemoglobin 28.5 pg (28.0-32.0); Mean Corpuscular Hgb Conc. 32.5 g/dL (32.0-36.0); Neutrophils # (auto) 3.3 uL; Neutrophils % (auto) 54.4 % (37.0-80.0); Platelet Count (auto) 430 10^3/uL (140-450); Red Blood Cells 2.97 10^6/uL (4.5-5.90)
[2017-05-12 09:00] VITALS: BP 131/79
[2017-05-12] MEDS: DOCUSATE SOD 100 MG CAP PO SCH (10:19)
[2017-05-12] MEDS: FERROUS SULFATE 325 MG TAB PO SCH (10:19)
[2017-05-12] MEDS: ASPirin 81 mg TAB PO SCH (10:19)
[2017-05-12] MEDS: B-COMPLEX W/ C & FOLIC ACID(NEPHROVITE TAB) PO SCH (10:20)
[2017-05-12] MEDS: CARVEDILOL 12.5 MG TAB PO SCH ×2 (10:20→22:54)
[2017-05-12] MEDS: FLORASTOR (S. BOULARDII) 250 MG CAP PO SCH ×2 (10:20→22:53)
[2017-05-12] MEDS: OLANZapine 5 MG TAB PO SCH (10:20)
[2017-05-12 12:00] VITALS: BP 134/86
[2017-05-12 16:00] VITALS: BP 135/87
[2017-05-12 20:00] VITALS: BP 127/85
[2017-05-12 21:35] VITALS: BP 127/85
[2017-05-12] MEDS: ATORVASTATIN 20 MG TAB PO SCH (22:53)
[2017-05-13] MEDS: hydrALAZINE HCL 25 MG TAB PO SCH ×5 (01:01→23:44)
[2017-05-13] MEDS: CEFTRIAXONE SODIUM 2 GM in D5W 5% 50 ML IV SCH ×3 (01:01→23:44)
[2017-05-13] MEDS: AMPICILLIN SOD 2GM INJ 2 GM in SODIUM CHL 0.9% 100 ML IV SCH ×6 (02:07→21:47)
[2017-05-13 05:00] VITALS: BP 113/64
[2017-05-13] MEDS: cloNIDine HCL 0.1 MG TAB PO SCH ×3 (06:00→21:51)
[2017-05-13] MEDS: SODIUM CHLOR 0.9% PF (SALINE LOCK) 10ML VIAL IV SCH ×3 (06:10→21:52)
[2017-05-13] MEDS: NIFEdipine ER 30 MG TAB PO SCH ×2 (06:46→18:20)
[2017-05-13] MEDS: metroNIDAZOLE 500 MG TAB PO SCH ×3 (06:47→21:51)
[2017-05-13] MEDS: BOOST PLUS 8 ounce PO SCH ×3 (08:00→19:00)
[2017-05-13] MEDS: SEVELAMER 800 MG TAB PO SCH ×3 (08:22→18:20)
[2017-05-13 08:40] VITALS: BP 134/74
[2017-05-13] MEDS: CARVEDILOL 12.5 MG TAB PO SCH ×2 (10:00→21:52)
[2017-05-13] MEDS ORDERED: EPOETIN ALFA 10,000 UNIT/1 ML VIAL IV ONE (10:15)
[2017-05-13] MEDS ORDERED: SODIUM CHL 0.9% 1000 ML BAG XX ONE (10:15)
[2017-05-13] MEDS: B-COMPLEX W/ C & FOLIC ACID(NEPHROVITE TAB) PO SCH (10:57)
[2017-05-13] MEDS: ASPirin 81 mg TAB PO SCH (10:57)
[2017-05-13] MEDS: FERROUS SULFATE 325 MG TAB PO SCH (10:57)
[2017-05-13] MEDS: FLORASTOR (S. BOULARDII) 250 MG CAP PO SCH ×2 (10:58→21:51)
[2017-05-13] MEDS: DOCUSATE SOD 100 MG CAP PO SCH (10:58)
[2017-05-13] MEDS: OLANZapine 5 MG TAB PO SCH (10:58)
[2017-05-13 12:33] VITALS: BP 140/69
[2017-05-13] MEDS ORDERED: LORazepam 0.5 MG TAB PO PRN (13:45)
[2017-05-13] MEDS ORDERED: MORPHINE SULFATE 4 MG/ML SYR/VIAL IV PRN (13:45)
[2017-05-13] MEDS ORDERED: ZOLPIDEM TARTRATE 5 MG TAB PO PRN (13:45)
[2017-05-13] MEDS: HYDROcodone-ACET 5/325MG TAB PO PRN (15:49)
[2017-05-13] MEDS ORDERED: cloNIDine HCL 0.1 MG TAB PO PRN (16:00)
[2017-05-13] MEDS ORDERED: ONDANSETRON HCL 4 MG/2 ML VIAL IV PRN (16:00)
[2017-05-13] MEDS ORDERED: ACETAMINOPHEN 325 MG TAB PO PRN (16:00)
[2017-05-13 16:44] VITALS: BP 143/82
[2017-05-13] MEDS: GABAPENTIN 300 MG CAP PO SCH (18:19)
[2017-05-13 20:00] VITALS: BP 167/93
[2017-05-13] MEDS: ATORVASTATIN 20 MG TAB PO SCH (21:51)
[2017-05-13 22:00] VITALS: BP 167/95
[2017-05-14] MEDS: AMPICILLIN SOD 2GM INJ 2 GM in SODIUM CHL 0.9% 100 ML IV SCH ×6 (02:33→21:45)
[2017-05-14 05:00] VITALS: BP 154/94
[2017-05-14] MEDS: cloNIDine HCL 0.1 MG TAB PO SCH ×3 (06:39→21:46)
[2017-05-14] MEDS: hydrALAZINE HCL 25 MG TAB PO SCH ×3 (06:40→18:48)
[2017-05-14] MEDS: metroNIDAZOLE 500 MG TAB PO SCH ×3 (06:41→21:46)
[2017-05-14] MEDS: NIFEdipine ER 30 MG TAB PO SCH ×2 (06:41→18:49)
[2017-05-14] MEDS: SODIUM CHLOR 0.9% PF (SALINE LOCK) 10ML VIAL IV SCH ×3 (06:41→21:47)
[2017-05-14 08:00] VITALS: BP 153/91
[2017-05-14 09:00] VITALS: BP 153/91
[2017-05-14] MEDS: DOCUSATE SOD 100 MG CAP PO SCH (09:24)
[2017-05-14] MEDS: OLANZapine 5 MG TAB PO SCH (09:24)
[2017-05-14] MEDS: ASPirin 81 mg TAB PO SCH (09:25)
[2017-05-14] MEDS: FERROUS SULFATE 325 MG TAB PO SCH (09:25)
[2017-05-14] MEDS: CARVEDILOL 12.5 MG TAB PO SCH ×2 (09:25→21:47)
[2017-05-14] MEDS: B-COMPLEX W/ C & FOLIC ACID(NEPHROVITE TAB) PO SCH (09:26)
[2017-05-14] MEDS: FLORASTOR (S. BOULARDII) 250 MG CAP PO SCH ×2 (09:26→21:46)
[2017-05-14] MEDS: SEVELAMER 800 MG TAB PO SCH ×3 (09:28→18:49)
[2017-05-14] MEDS: BOOST PLUS 8 ounce PO SCH ×3 (09:28→18:49)
[2017-05-14] MEDS ORDERED: SODIUM CHL 0.9% 1000 ML BAG XX ONE (11:00)
[2017-05-14] MEDS ORDERED: EPOETIN ALFA 10,000 UNIT/1 ML VIAL IV ONE (11:00)
[2017-05-14] MEDS: CEFTRIAXONE SODIUM 2 GM in D5W 5% 50 ML IV SCH (11:57)
[2017-05-14 12:51] VITALS: BP 156/83
[2017-05-14 17:00] VITALS: BP 148/72
[2017-05-14] MEDS: GABAPENTIN 300 MG CAP PO SCH (18:49)
[2017-05-14] MEDS: ATORVASTATIN 20 MG TAB PO SCH (21:46)
[2017-05-14 21:55] VITALS: BP 151/71
[2017-05-15] MEDS: hydrALAZINE HCL 25 MG TAB PO SCH ×4 (00:05→17:37)
[2017-05-15] MEDS: CEFTRIAXONE SODIUM 2 GM in D5W 5% 50 ML IV SCH ×2 (00:05→11:31)
[2017-05-15] MEDS: AMPICILLIN SOD 2GM INJ 2 GM in SODIUM CHL 0.9% 100 ML IV SCH ×6 (02:22→21:54)
[2017-05-15 05:15] VITALS: BP 146/75
[2017-05-15] MEDS: cloNIDine HCL 0.1 MG TAB PO SCH ×3 (06:37→21:54)
[2017-05-15] MEDS: NIFEdipine ER 30 MG TAB PO SCH ×2 (06:38→17:37)
[2017-05-15] MEDS: metroNIDAZOLE 500 MG TAB PO SCH ×2 (06:38→14:44)
[2017-05-15] MEDS: SODIUM CHLOR 0.9% PF (SALINE LOCK) 10ML VIAL IV SCH ×3 (06:39→21:54)
[2017-05-15] MEDS: BOOST PLUS 8 ounce PO SCH ×3 (08:28→17:33)
[2017-05-15] MEDS: ASPirin 81 mg TAB PO SCH (08:55)
[2017-05-15] MEDS: B-COMPLEX W/ C & FOLIC ACID(NEPHROVITE TAB) PO SCH (08:55)
[2017-05-15] MEDS: FLORASTOR (S. BOULARDII) 250 MG CAP PO SCH (08:55)
[2017-05-15] MEDS: FERROUS SULFATE 325 MG TAB PO SCH (08:55)
[2017-05-15] MEDS: OLANZapine 5 MG TAB PO SCH (08:55)
[2017-05-15] MEDS: SEVELAMER 800 MG TAB PO SCH ×3 (08:56→17:33)
[2017-05-15 09:00] VITALS: BP 148/71
[2017-05-15] MEDS: DOCUSATE SOD 100 MG CAP PO SCH (10:00)
[2017-05-15] MEDS: CARVEDILOL 12.5 MG TAB PO SCH ×2 (10:00→21:55)
[2017-05-15 13:00] VITALS: BP 142/82
[2017-05-15 17:00] VITALS: BP 135/80
[2017-05-15] MEDS: GABAPENTIN 300 MG CAP PO SCH (17:33)
[2017-05-15] MEDS: ATORVASTATIN 20 MG TAB PO SCH (21:56)
[2017-05-16] MEDS: CEFTRIAXONE SODIUM 2 GM in D5W 5% 50 ML IV SCH ×3 (00:20→23:55)
[2017-05-16] MEDS: hydrALAZINE HCL 25 MG TAB PO SCH ×5 (00:26→23:56)
[2017-05-16] MEDS: AMPICILLIN SOD 2GM INJ 2 GM in SODIUM CHL 0.9% 100 ML IV SCH ×6 (02:22→21:10)
[2017-05-16] MEDS ORDERED: EPOETIN ALFA 10,000 UNIT/1 ML VIAL IV ONE (04:00)
[2017-05-16] MEDS ORDERED: SODIUM CHL 0.9% 1000 ML BAG XX ONE (04:00)
[2017-05-16 04:56] VITALS: BP 152/84
[2017-05-16] MEDS: SODIUM CHLOR 0.9% PF (SALINE LOCK) 10ML VIAL IV SCH ×3 (05:56→21:10)
[2017-05-16] MEDS: cloNIDine HCL 0.1 MG TAB PO SCH ×3 (05:56→21:10)
[2017-05-16] MEDS: NIFEdipine ER 30 MG TAB PO SCH ×2 (06:45→17:31)
[2017-05-16] MEDS: SEVELAMER 800 MG TAB PO SCH ×3 (08:05→17:32)
[2017-05-16] MEDS: BOOST PLUS 8 ounce PO SCH ×3 (08:05→17:32)
[2017-05-16] MEDS: OLANZapine 5 MG TAB PO SCH (08:47)
[2017-05-16] MEDS: B-COMPLEX W/ C & FOLIC ACID(NEPHROVITE TAB) PO SCH (08:47)
[2017-05-16] MEDS: FERROUS SULFATE 325 MG TAB PO SCH (08:47)
[2017-05-16] MEDS: DOCUSATE SOD 100 MG CAP PO SCH (08:47)
[2017-05-16] MEDS: ASPirin 81 mg TAB PO SCH (08:47)
[2017-05-16 09:00] VITALS: BP 120/83
[2017-05-16] MEDS: CARVEDILOL 12.5 MG TAB PO SCH ×2 (10:15→21:11)
[2017-05-16 13:00] VITALS: BP 146/87
[2017-05-16 16:44] VITALS: BP 144/86
[2017-05-16] MEDS: GABAPENTIN 300 MG CAP PO SCH (17:31)
[2017-05-16] MEDS: ATORVASTATIN 20 MG TAB PO SCH (21:11)
[2017-05-16 22:00] VITALS: BP 155/99
[2017-05-16 23:30] VITALS: BP 140/91
[2017-05-17] MEDS: AMPICILLIN SOD 2GM INJ 2 GM in SODIUM CHL 0.9% 100 ML IV SCH ×6 (02:02→21:41)
[2017-05-17] MEDS: HYDROcodone-ACET 5/325MG TAB PO PRN ×3 (04:07→17:27)
[2017-05-17 05:00] VITALS: BP 157/82
[2017-05-17] MEDS: SODIUM CHLOR 0.9% PF (SALINE LOCK) 10ML VIAL IV SCH ×3 (06:26→21:41)
[2017-05-17] MEDS: NIFEdipine ER 30 MG TAB PO SCH ×2 (06:27→17:25)
[2017-05-17] MEDS: cloNIDine HCL 0.1 MG TAB PO SCH ×3 (06:27→21:40)
[2017-05-17] MEDS: hydrALAZINE HCL 25 MG TAB PO SCH ×4 (06:27→23:57)
[2017-05-17] MEDS: SEVELAMER 800 MG TAB PO SCH ×3 (07:50→17:26)
[2017-05-17 08:59] VITALS: BP 142/81
[2017-05-17] MEDS: B-COMPLEX W/ C & FOLIC ACID(NEPHROVITE TAB) PO SCH (09:39)
[2017-05-17] MEDS: OLANZapine 5 MG TAB PO SCH (09:39)
[2017-05-17] MEDS: FERROUS SULFATE 325 MG TAB PO SCH (09:41)
[2017-05-17] MEDS: DOCUSATE SOD 100 MG CAP PO SCH (09:41)
[2017-05-17] MEDS: CARVEDILOL 12.5 MG TAB PO SCH ×2 (09:41→21:42)
[2017-05-17] MEDS: ASPirin 81 mg TAB PO SCH (09:41)
[2017-05-17] MEDS: BOOST PLUS 8 ounce PO SCH ×3 (09:42→17:26)
[2017-05-17] MEDS ORDERED: EPOETIN ALFA 10,000 UNIT/1 ML VIAL IV ONE (12:00)
[2017-05-17] MEDS: CEFTRIAXONE SODIUM 2 GM in D5W 5% 50 ML IV SCH ×2 (12:00→23:57)
[2017-05-17 12:53] VITALS: BP 132/75
[2017-05-17 17:00] VITALS: BP 159/84
[2017-05-17] MEDS: GABAPENTIN 300 MG CAP PO SCH (17:26)
[2017-05-17 21:37] VITALS: BP 149/84
[2017-05-17] MEDS: ATORVASTATIN 20 MG TAB PO SCH (21:41)
[2017-05-18] MEDS: AMPICILLIN SOD 2GM INJ 2 GM in SODIUM CHL 0.9% 100 ML IV SCH ×6 (01:53→22:00)
[2017-05-18 05:00] VITALS: BP_SYST 148; BP_SYST 149; BP_DIAS 74; BP_DIAS 84
[2017-05-18] MEDS: SODIUM CHLOR 0.9% PF (SALINE LOCK) 10ML VIAL IV SCH ×3 (05:44→22:00)
[2017-05-18] MEDS: hydrALAZINE HCL 25 MG TAB PO SCH ×3 (06:58→18:29)
[2017-05-18] MEDS: NIFEdipine ER 30 MG TAB PO SCH ×2 (06:58→18:28)
[2017-05-18] MEDS: cloNIDine HCL 0.1 MG TAB PO SCH ×3 (06:59→22:00)
[2017-05-18] MEDS: BOOST PLUS 8 ounce PO SCH ×3 (07:45→18:29)
[2017-05-18] MEDS: SEVELAMER 800 MG TAB PO SCH ×3 (07:46→18:28)
[2017-05-18 10:00] VITALS: BP 134/82
[2017-05-18] MEDS: ASPirin 81 mg TAB PO SCH (10:00)
[2017-05-18] MEDS: B-COMPLEX W/ C & FOLIC ACID(NEPHROVITE TAB) PO SCH (10:00)
[2017-05-18] MEDS: DOCUSATE SOD 100 MG CAP PO SCH (10:00)
[2017-05-18] MEDS: CARVEDILOL 12.5 MG TAB PO SCH ×2 (10:00→21:12)
[2017-05-18] MEDS: FERROUS SULFATE 325 MG TAB PO SCH (10:00)
[2017-05-18] MEDS ORDERED: SODIUM CHL 0.9% 1000 ML BAG XX ONE (12:00)
[2017-05-18] MEDS: CEFTRIAXONE SODIUM 2 GM in D5W 5% 50 ML IV SCH (12:44)
[2017-05-18 13:00] VITALS: BP 144/87
[2017-05-18 17:00] VITALS: BP 163/95
[2017-05-18] MEDS: GABAPENTIN 300 MG CAP PO SCH (18:28)
[2017-05-18] MEDS: OLANZapine 5 MG TAB PO SCH (18:29)
[2017-05-18] MEDS: ATORVASTATIN 20 MG TAB PO SCH (21:11)
[2017-05-18 22:01] VITALS: BP 153/90
[2017-05-18] MEDS: HYDROcodone-ACET 5/325MG TAB PO PRN (23:17)
[2017-05-19] VITALS (7 sets, daily range): BP systolic 152–197; BP diastolic 89–119
[2017-05-19] MEDS: CEFTRIAXONE SODIUM 2 GM in D5W 5% 50 ML IV SCH ×3 (00:27→23:48)
[2017-05-19] MEDS: hydrALAZINE HCL 25 MG TAB PO PRN ×3 (00:28→20:15)
[2017-05-19] MEDS: AMPICILLIN SOD 2GM INJ 2 GM in SODIUM CHL 0.9% 100 ML IV SCH ×6 (02:00→21:49)
[2017-05-19] MEDS: hydrALAZINE HCL 25 MG TAB PO SCH ×5 (06:08→23:48)
[2017-05-19] MEDS: cloNIDine HCL 0.1 MG TAB PO SCH ×3 (07:52→22:42)
[2017-05-19] MEDS: SODIUM CHLOR 0.9% PF (SALINE LOCK) 10ML VIAL IV SCH ×3 (07:53→21:49)
[2017-05-19] MEDS: NIFEdipine ER 30 MG TAB PO SCH ×2 (08:42→18:06)
[2017-05-19] MEDS: SEVELAMER 800 MG TAB PO SCH ×3 (08:43→18:06)
[2017-05-19] MEDS: BOOST PLUS 8 ounce PO SCH ×2 (08:43→12:45)
[2017-05-19] MEDS: FERROUS SULFATE 325 MG TAB PO SCH (11:05)
[2017-05-19] MEDS: B-COMPLEX W/ C & FOLIC ACID(NEPHROVITE TAB) PO SCH (11:05)
[2017-05-19] MEDS: ASPirin 81 mg TAB PO SCH (11:06)
[2017-05-19] MEDS: CARVEDILOL 12.5 MG TAB PO SCH ×2 (11:06→21:50)
[2017-05-19] MEDS: DOCUSATE SOD 100 MG CAP PO SCH (11:06)
[2017-05-19] MEDS: OLANZapine 5 MG TAB PO SCH (11:07)
[2017-05-19 14:12] LABS: Hematocrit 26.8 % (41.0-53.0); Hemoglobin 8.5 g/dL (13.5-17.5); Mean Corpuscular Hemoglobin 28.3 pg (28.0-32.0); Mean Corpuscular Hgb Conc. 31.5 g/dL (32.0-36.0); Mean Corpuscular Volume 89.7 fL (80.0-100.0); Platelet Count (auto) 311 10^3/uL (140-450); Red Blood Cells 2.99 10^6/uL (4.5-5.90); Red Cell Distribution Width 18.5 % (11.8-14.3); White Blood Cell 6.2 10^3/uL (4.4-10.8)
[2017-05-19 14:18] LABS: Band Neutrophils % (manual) 0
[2017-05-19 14:19] LABS: Basophils % (manual) 0 (0.0-2.0); Blast Cells 0; Metamyelocytes % 0; Myelocytes % 0; Promyelocytes % 0; Reactive Lymphocytes 0
[2017-05-19 14:51] LABS: Eosinophils % (manual) 4 (0-7); Lymphocytes % (manual) 20 (10.0-50.0); Monocytes % (manual) 13 (0-12)
[2017-05-19] MEDS: GABAPENTIN 300 MG CAP PO SCH (18:06)
[2017-05-19] MEDS: Novasource Renal 8 Ounces PO SCH (18:07)
[2017-05-19] MEDS: ATORVASTATIN 20 MG TAB PO SCH (21:51)
[2017-05-20] MEDS: AMPICILLIN SOD 2GM INJ 2 GM in SODIUM CHL 0.9% 100 ML IV SCH ×3 (02:06→09:22)
[2017-05-20 05:00] VITALS: BP 156/90
[2017-05-20] MEDS: cloNIDine HCL 0.1 MG TAB PO SCH (06:18)
[2017-05-20] MEDS: hydrALAZINE HCL 25 MG TAB PO SCH (06:18)
[2017-05-20] MEDS: NIFEdipine ER 30 MG TAB PO SCH (06:19)
[2017-05-20] MEDS: HYDROcodone-ACET 5/325MG TAB PO PRN (07:43)
[2017-05-20 09:00] VITALS: BP 143/94
[2017-05-20] MEDS ORDERED: SODIUM CHL 0.9% 1000 ML BAG XX ONE (09:00)
[2017-05-20] MEDS ORDERED: EPOETIN ALFA 10,000 UNIT/1 ML VIAL IV ONE (09:00)
[2017-05-20] MEDS: Novasource Renal 8 Ounces PO SCH (09:21)
[2017-05-20] MEDS: SEVELAMER 800 MG TAB PO SCH (09:21)
[2017-05-20] MEDS: ASPirin 81 mg TAB PO SCH (09:22)
[2017-05-20] MEDS: DOCUSATE SOD 100 MG CAP PO SCH (09:22)
[2017-05-20] MEDS: FERROUS SULFATE 325 MG TAB PO SCH (09:22)
[2017-05-20] MEDS: OLANZapine 5 MG TAB PO SCH (09:23)
[2017-05-20] MEDS: B-COMPLEX W/ C & FOLIC ACID(NEPHROVITE TAB) PO SCH (09:23)
[2017-05-20 09:59] VITALS: BP 143/94
== END 2017-05-20 11:55 | disposition home health service (06) | DRG 721 ==
LOC: ER 09:14 → EDBD 09:14 → TELE 09:15 → TELE-WESTW 05-02 08:31 → WEST WING 05-13 14:08
PROVIDERS: ADMIT Internal Medicine; ATTEND Internal Medicine Pulmonary Disease
PROC: 5A1D70Z Performance of Urinary Filtration, Intermittent, Less than 6 Hours Per Day (ICD-10-PCS; 2017-05-01)
PROC: 30233N1 Transfusion of Nonautologous Red Blood Cells into Peripheral Vein, Percutaneous Approach (ICD-10-PCS; principal; 2017-05-02)
PROC: 5A1D70Z Performance of Urinary Filtration, Intermittent, Less than 6 Hours Per Day (ICD-10-PCS; 2017-05-02)
PROC: 5A1D70Z Performance of Urinary Filtration, Intermittent, Less than 6 Hours Per Day (ICD-10-PCS; 2017-05-04)
PROC: 5A1D70Z Performance of Urinary Filtration, Intermittent, Less than 6 Hours Per Day (ICD-10-PCS; 2017-05-06)
PROC: 5A1D70Z Performance of Urinary Filtration, Intermittent, Less than 6 Hours Per Day (ICD-10-PCS; 2017-05-09)
PROC: 5A1D70Z Performance of Urinary Filtration, Intermittent, Less than 6 Hours Per Day (ICD-10-PCS; 2017-05-11)
PROC: 5A1D70Z Performance of Urinary Filtration, Intermittent, Less than 6 Hours Per Day (ICD-10-PCS; 2017-05-13)
PROC: 5A1D70Z Performance of Urinary Filtration, Intermittent, Less than 6 Hours Per Day (ICD-10-PCS; 2017-05-16)
PROC: 5A1D70Z Performance of Urinary Filtration, Intermittent, Less than 6 Hours Per Day (ICD-10-PCS; 2017-05-18)
PROC: 5A1D70Z Performance of Urinary Filtration, Intermittent, Less than 6 Hours Per Day (ICD-10-PCS; 2017-05-20)
DX: T80.211A Bloodstream infection due to central venous catheter, initial encounter (principal); A41.81 Sepsis due to Enterococcus; I21.A1 Myocardial infarction type 2; J96.00 Acute respiratory failure, unspecified whether with hypoxia or hypercapnia; I13.2 Hypertensive heart and chronic kidney disease with heart failure and with stage 5 chronic kidney disease, or end stage renal disease; I33.0 Acute and subacute infective endocarditis; N18.6 End stage renal disease; T82.7XXA Infection and inflammatory reaction due to other cardiac and vascular devices, implants and grafts, initial encounter; I50.30 Unspecified diastolic (congestive) heart failure; A04.72 Enterocolitis due to Clostridium difficile, not specified as recurrent; E11.22 Type 2 diabetes mellitus with diabetic chronic kidney disease; I50.9 Heart failure, unspecified; E44.0 Moderate protein-calorie malnutrition; I16.1 Hypertensive emergency; Z99.2 Dependence on renal dialysis; E87.5 Hyperkalemia; J20.9 Acute bronchitis, unspecified; J98.11 Atelectasis; E61.1 Iron deficiency; D63.8 Anemia in other chronic diseases classified elsewhere; B95.2 Enterococcus as the cause of diseases classified elsewhere; F20.9 Schizophrenia, unspecified; J18.9 Pneumonia, unspecified organism; E87.6 Hypokalemia; F31.9 Bipolar disorder, unspecified; F41.9 Anxiety disorder, unspecified; I05.9 Rheumatic mitral valve disease, unspecified; Z53.29 Procedure and treatment not carried out because of patient's decision for other reasons; Y83.8 Other surgical procedures as the cause of abnormal reaction of the patient, or of later complication, without mention of misadventure at the time of the procedure; Z80.42 Family history of malignant neoplasm of prostate; Z68.26 Body mass index [BMI] 26.0-26.9, adult; Z80.8 Family history of malignant neoplasm of other organs or systems; Z82.49 Family history of ischemic heart disease and other diseases of the circulatory system; Z83.3 Family history of diabetes mellitus; Z91.19 Patient's noncompliance with other medical treatment and regimen; Z79.899 Other long term (current) drug therapy; Y92.89 Other specified places as the place of occurrence of the external cause
CPT/HCPCS: 36415; 71045; 80048; 80053; 80061; 80202; 81001; 82306; 82962; 83540; 83550; 83735; 83880; 83970; 84100; 84132; 84484; 85007; 85025; 85027; 85610; 85652; 85730; 86141; 86850; 86900; 86901; 86920; 87040; 87045; 87077; 87081; 87186; 87493; 87899; 90935; 93005; 93306; 94640; 96367; 96374; 96375; 99291; J0610; J0696; J0885; J1642; J1815; J2405; J7060

== ENCOUNTER 2017-06-29 00:19 | Inpatient (IN) | payer MEDICAID ==
[~2017-06-29] VITALS: Ht 167.6 cm; Wt 75.4 kg
[~2017-06-29 00:19] MED LIST changes: +ALBU0.084 NEB; +FOLI1TAB6 PO; -GAB100C PO; -HALO1TAB17 PO; -HYDR1TAB97; -KAY60LQ PO; -LABE100T PO; +RIFA300C3 PO; +SENN1TAB14 PO; +SEVE800T PO
[2017-06-29] MEDS ORDERED: cloNIDine HCL 0.1 MG TAB ONE (00:33)
[2017-06-29] MEDS ORDERED: cloNIDine HCL 0.1 MG TAB PO ONE (00:45)
[2017-06-29 01:07] LABS: Basophils # (auto) 0.1 uL; Basophils % (auto) 1.4 % (0.0-2.0); Eosinophils # (auto) 0.3 uL; Lymphocytes # (auto) 0.9 uL
[2017-06-29 01:08] LABS: Hematocrit 23.4 % (41.0-53.0); Hemoglobin 7.5 g/dL (13.5-17.5); Lymphocytes % (auto) 15.1 % (10.0-50.0); Mean Corpuscular Hemoglobin 27.7 pg (28.0-32.0); Mean Corpuscular Hgb Conc. 31.9 g/dL (32.0-36.0); Mean Corpuscular Volume 86.9 fL (80.0-100.0); Monocytes % (auto) 17.8 % (0.0-12.0); Neutrophils # (auto) 3.4 uL; Neutrophils % (auto) 59.7 % (37.0-80.0); Nucleated Red Blood Cells % 0.1 %; Platelet Count (auto) 253 10^3/uL (140-450); Red Cell Distribution Width 18.7 % (11.8-14.3); White Blood Cell 5.7 10^3/uL (4.4-10.8)
[2017-06-29 01:21] LABS: INR 1.05 (0.9-1.15); Partial Thromboplastin Time 28.5 sec (22.64-33.71); Prothrombin Time 11.4 sec (9.37-12.3)
[2017-06-29 01:25] LABS: Albumin 2.3 g/dL (3.4-5.0); Calcium 8.9 mg/dL (8.5-10.1); Potassium 5.5 mmol/L (3.5-5.1)
[2017-06-29 01:32] LABS: BUN/Creatinine Ratio 6.5; Bilirubin, Total 0.3 mg/dL (0.2-1.0)
[2017-06-29] MEDS ORDERED: LABETALOL HCL 200 MG TAB PO ONE (06:15)
[2017-06-29] MEDS: NICARDIPINE 25MG/250ML BAG KIT 250 ML IV SCH ×4 (07:54→20:09)
[2017-06-29] MEDS ORDERED: ALBUTEROL SULF 2.5 MG/0.5ML(0.5%) NEB SOLN NEB STA ×2 (09:00→13:03)
[2017-06-29] MEDS ORDERED: InsuLIN REG 1unit/0.01ml Soln (100units/ml) IV ONE ×2 (09:00→13:15)
[2017-06-29] MEDS ORDERED: ENOXAPARIN SOD 80 MG/0.8ML SYRINGE SC ONE (09:00)
[2017-06-29] MEDS ORDERED: CALCIUM GLUC 4.65meq/50ml D5AE 50 ML IV ONE ×2 (09:00→13:15)
[2017-06-29] MEDS ORDERED: DEXTROSE (50%) 50ML SYRG IV ONE ×2 (09:00→13:15)
[2017-06-29] MEDS ORDERED: SODIUM BICARBONATE 8.4% INJ 50ML SYRINGE IV ONE ×2 (09:00→13:15)
[2017-06-29] MEDS: SODIUM POLYSTYRENE SULF 15GM/60ML SUSP PO ONE (09:59)
[2017-06-29] MEDS ORDERED: ACETAMINOPHEN 500 MG TAB PO PRN (11:15)
[2017-06-29] MEDS ORDERED: MORPHINE SULFATE 8mg/ml INJ SDV IV PRN ×2 (11:15)
[2017-06-29] MEDS ORDERED: NITROGLYCERIN 0.4 MG SL TAB SL PRN (11:15)
[2017-06-29] MEDS ORDERED: LORazepam 0.5 MG TAB PO PRN (11:15)
[2017-06-29] MEDS: B-COMPLEX W/ C & FOLIC ACID(NEPHROVITE TAB) PO SCH (11:30)
[2017-06-29] MEDS: FERROUS SULFATE 325 MG TAB PO SCH (11:30)
[2017-06-29] MEDS: FAMOTIDINE 20 MG TAB PO SCH (11:30)
[2017-06-29] MEDS: FOLIC ACID 1 MG TAB PO SCH (11:45)
[2017-06-29] MEDS: SEVELAMER 800 MG TAB PO SCH (12:00)
[2017-06-29] MEDS: PROMETHAZINE HCL 25 MG/ML 1ML IV PRN (13:15)
[2017-06-29] MEDS: cloNIDine HCL 0.1 MG TAB PO SCH ×2 (14:00→21:20)
[2017-06-29] MEDS ORDERED: HEPARIN 1,000 UNITS/ml 1ML VIAL IV ONE (15:00)
[2017-06-29] MEDS ORDERED: EPOETIN ALFA 10,000 UNIT/1 ML VIAL IV ONE (15:00)
[2017-06-29] MEDS ORDERED: HEPARIN SODIUM (PORCINE) 5000 UNITS/ML 1ML VIAL IV ONE (15:00)
[2017-06-29] MEDS ORDERED: SODIUM CHLORIDE 0.9% 2,000 ML IV ONE (15:00)
[2017-06-29] MEDS: NITROGLYCERIN 50MG/250ML 250 ML IV SCH (15:45)
[2017-06-29] MEDS: SODIUM CHLOR 0.9% PF (SALINE LOCK) 10ML VIAL/SYR IV SCH ×2 (15:48→21:21)
[2017-06-29] MEDS: LABETALOL HCL 200 MG TAB PO SCH ×2 (16:22→21:19)
[2017-06-29] MEDS ORDERED: HEPARIN 1,000 UNITS/ml 1ML VIAL ONE (16:37)
[2017-06-29 17:28] VITALS: BP 167/101
[2017-06-29] MEDS: HYDROcodone-ACET 5/325MG TAB PO PRN (20:17)
[2017-06-29] MEDS: NIFEdipine ER 30 MG TAB PO SCH (21:19)
[2017-06-29] MEDS: CARVEDILOL 12.5 MG TAB PO SCH (21:20)
[2017-06-29] MEDS: SENNA 8.6 MG TAB PO SCH (21:20)
[2017-06-29] MEDS: ZOLPIDEM TARTRATE 5 MG TAB PO SCH (21:21)
[2017-06-30] MEDS: NICARDIPINE 25MG/250ML BAG KIT 250 ML IV SCH ×4 (00:09→17:00)
[2017-06-30 05:26] LABS: Albumin 2.1 g/dL (3.4-5.0); BUN/Creatinine Ratio 5.5; Calcium 8.7 mg/dL (8.5-10.1); Potassium 4.9 mmol/L (3.5-5.1)
[2017-06-30 05:28] LABS: Bilirubin, Total 0.2 mg/dL (0.2-1.0); Total Protein 8.4 g/dL (6.4-8.2)
[2017-06-30 05:35] LABS: Basophils # (auto) 0.1 uL; Basophils % (auto) 1.4 % (0.0-2.0); Eosinophils # (auto) 0.4 uL; Eosinophils % (auto) 5.4 % (0.0-7.0); Hematocrit 26.2 % (41.0-53.0); Hemoglobin 8.5 g/dL (13.5-17.5); Lymphocytes # (auto) 1.3 uL; Mean Corpuscular Hemoglobin 27.9 pg (28.0-32.0); Mean Corpuscular Hgb Conc. 32.4 g/dL (32.0-36.0); Mean Corpuscular Volume 86.1 fL (80.0-100.0); Monocytes # (auto) 1.1 uL; Monocytes % (auto) 17.1 % (0.0-12.0); Neutrophils # (auto) 3.8 uL; Neutrophils % (auto) 57.1 % (37.0-80.0); Nucleated Red Blood Cells % 0.1 %; Platelet Count (auto) 278 10^3/uL (140-450); Red Blood Cells 3.04 10^6/uL (4.5-5.90); Red Cell Distribution Width 17.9 % (11.8-14.3); White Blood Cell 6.7 10^3/uL (4.4-10.8)
[2017-06-30] MEDS: SODIUM CHLOR 0.9% PF (SALINE LOCK) 10ML VIAL/SYR IV SCH ×3 (05:40→22:18)
[2017-06-30] MEDS: LABETALOL HCL 200 MG TAB PO SCH ×3 (05:40→21:49)
[2017-06-30] MEDS: cloNIDine HCL 0.1 MG TAB PO SCH ×3 (05:40→21:48)
[2017-06-30] MEDS: FAMOTIDINE 20 MG TAB PO SCH (09:52)
[2017-06-30] MEDS: ASPirin-EC 81 mg tab PO SCH (09:52)
[2017-06-30] MEDS: FOLIC ACID 1 MG TAB PO SCH (09:53)
[2017-06-30] MEDS: FERROUS SULFATE 325 MG TAB PO SCH (09:53)
[2017-06-30] MEDS: B-COMPLEX W/ C & FOLIC ACID(NEPHROVITE TAB) PO SCH (09:53)
[2017-06-30] MEDS: CARVEDILOL 12.5 MG TAB PO SCH ×2 (09:53→21:47)
[2017-06-30] MEDS: OLANZapine 5 MG TAB PO SCH (09:59)
[2017-06-30] MEDS ORDERED: NIFEdipine ER 30 MG TAB PO SCH (10:00)
[2017-06-30] MEDS: NIFEdipine ER 30 MG TAB PO SCH ×2 (10:14→22:07)
[2017-06-30] MEDS: NITROGLYCERIN 50MG/250ML 250 ML IV SCH (11:05)
[2017-06-30] MEDS: SEVELAMER 800 MG TAB PO SCH (12:17)
[2017-06-30 19:16] VITALS: BP 122/84
[2017-06-30 22:00] VITALS: BP 148/96
[2017-06-30] MEDS: ZOLPIDEM TARTRATE 5 MG TAB PO SCH (22:00)
[2017-06-30] MEDS: SENNA 8.6 MG TAB PO SCH ×2 (22:00→22:07)
[2017-06-30] MEDS: TEMAZEPAM 15 MG CAP PO PRN (22:07)
[2017-07-01] MEDS: LABETALOL HCL 200 MG TAB PO SCH ×3 (05:48→21:29)
[2017-07-01] MEDS: SODIUM CHLOR 0.9% PF (SALINE LOCK) 10ML VIAL/SYR IV SCH ×3 (05:48→21:31)
[2017-07-01 05:50] VITALS: BP 140/71
[2017-07-01] MEDS: cloNIDine HCL 0.1 MG TAB PO SCH ×3 (05:50→21:30)
[2017-07-01 09:00] VITALS: BP 134/83
[2017-07-01] MEDS: FAMOTIDINE 20 MG TAB PO SCH (10:00)
[2017-07-01] MEDS: FERROUS SULFATE 325 MG TAB PO SCH (10:00)
[2017-07-01] MEDS: B-COMPLEX W/ C & FOLIC ACID(NEPHROVITE TAB) PO SCH (10:00)
[2017-07-01] MEDS: ASPirin-EC 81 mg tab PO SCH (10:00)
[2017-07-01] MEDS: FOLIC ACID 1 MG TAB PO SCH (10:00)
[2017-07-01] MEDS: OLANZapine 5 MG TAB PO SCH (10:00)
[2017-07-01] MEDS: HYDROcodone-ACET 5/325MG TAB PO PRN ×2 (10:21→17:59)
[2017-07-01] MEDS ORDERED: EPOETIN ALFA 10,000 UNIT/1 ML VIAL IV ONE (10:30)
[2017-07-01] MEDS ORDERED: SODIUM CHL 0.9% 1000 ML BAG XX ONE (10:30)
[2017-07-01] MEDS: SEVELAMER 800 MG TAB PO SCH (12:26)
[2017-07-01 13:00] VITALS: BP 150/93
[2017-07-01 17:00] VITALS: BP 168/111
[2017-07-01] MEDS: NIFEdipine ER 30 MG TAB PO SCH ×2 (17:51→21:28)
[2017-07-01] MEDS: CARVEDILOL 12.5 MG TAB PO SCH ×2 (17:52→21:30)
[2017-07-01] MEDS: ZOLPIDEM TARTRATE 5 MG TAB PO SCH ×2 (21:27→21:36)
[2017-07-01 21:30] VITALS: BP 163/125
[2017-07-01] MEDS: SENNA 8.6 MG TAB PO SCH (21:36)
[2017-07-01] MEDS: hydrALAZINE HCL 25 MG TAB PO PRN (23:42)
[2017-07-02 04:53] VITALS: BP 156/93
[2017-07-02] MEDS: LABETALOL HCL 200 MG TAB PO SCH ×3 (05:52→21:35)
[2017-07-02] MEDS: SODIUM CHLOR 0.9% PF (SALINE LOCK) 10ML VIAL/SYR IV SCH ×3 (05:53→22:00)
[2017-07-02] MEDS: cloNIDine HCL 0.1 MG TAB PO SCH ×3 (05:53→21:34)
[2017-07-02 09:00] VITALS: BP 151/101
[2017-07-02 11:57] LABS: Albumin 2.1 g/dL (3.4-5.0); BUN/Creatinine Ratio 5.6; Bilirubin, Total 0.3 mg/dL (0.2-1.0); Calcium 8.7 mg/dL (8.5-10.1); Total Protein 7.7 g/dL (6.4-8.2)
[2017-07-02 12:01] LABS: Potassium 6.6 mmol/L (3.5-5.1)
[2017-07-02 13:00] VITALS: BP 158/101
[2017-07-02] MEDS: SEVELAMER 800 MG TAB PO SCH (13:29)
[2017-07-02] MEDS: OLANZapine 5 MG TAB PO SCH (13:30)
[2017-07-02] MEDS: FERROUS SULFATE 325 MG TAB PO SCH (13:30)
[2017-07-02] MEDS: NIFEdipine ER 30 MG TAB PO SCH ×2 (13:30→21:34)
[2017-07-02] MEDS: B-COMPLEX W/ C & FOLIC ACID(NEPHROVITE TAB) PO SCH (13:30)
[2017-07-02] MEDS: ASPirin-EC 81 mg tab PO SCH (13:31)
[2017-07-02] MEDS: FOLIC ACID 1 MG TAB PO SCH (13:31)
[2017-07-02] MEDS: FAMOTIDINE 20 MG TAB PO SCH (13:31)
[2017-07-02] MEDS: CARVEDILOL 12.5 MG TAB PO SCH ×2 (13:31→21:36)
[2017-07-02] MEDS ORDERED: SODIUM POLYSTYRENE SULF 15GM/60ML SUSP PO ONE (14:00)
[2017-07-02] MEDS ORDERED: CALCIUM CHL 100MG/ML 1,000 MG in D5W 5% 100 ML IV ONE (14:15)
[2017-07-02] MEDS ORDERED: InsuLIN REG 1unit/0.01ml Soln (100units/ml) IV ONE (14:15)
[2017-07-02] MEDS ORDERED: DEXTROSE (50%) 50ML SYRG IV ONE (14:15)
[2017-07-02 16:52] VITALS: BP 170/116
[2017-07-02] MEDS: PROMETHAZINE HCL 25 MG/ML 1ML IV PRN (16:55)
[2017-07-02] MEDS: hydrALAZINE HCL 25 MG TAB PO PRN (16:55)
[2017-07-02] MEDS: ZOLPIDEM TARTRATE 5 MG TAB PO SCH (21:34)
[2017-07-02] MEDS: SENNA 8.6 MG TAB PO SCH (21:36)
[2017-07-02 22:03] VITALS: BP 161/97
[2017-07-03 05:00] VITALS: BP 160/100
[2017-07-03] MEDS: cloNIDine HCL 0.1 MG TAB PO SCH (05:57)
[2017-07-03] MEDS: SODIUM CHLOR 0.9% PF (SALINE LOCK) 10ML VIAL/SYR IV SCH ×3 (05:58→21:53)
[2017-07-03] MEDS: LABETALOL HCL 200 MG TAB PO SCH (05:58)
[2017-07-03 08:51] VITALS: BP 159/99
[2017-07-03] MEDS ORDERED: EPOETIN ALFA 10,000 UNIT/1 ML VIAL IV ONE (09:00)
[2017-07-03] MEDS: ALBUTEROL SULF 2.5 MG/0.5ML(0.5%) NEB SOLN NEB PRN ×2 (09:22→23:59)
[2017-07-03] MEDS: B-COMPLEX W/ C & FOLIC ACID(NEPHROVITE TAB) PO SCH (10:27)
[2017-07-03] MEDS: NIFEdipine ER 30 MG TAB PO SCH ×2 (10:27→21:50)
[2017-07-03] MEDS: CARVEDILOL 12.5 MG TAB PO SCH (10:28)
[2017-07-03] MEDS: ASPirin-EC 81 mg tab PO SCH (10:28)
[2017-07-03] MEDS: FERROUS SULFATE 325 MG TAB PO SCH (10:29)
[2017-07-03] MEDS: FOLIC ACID 1 MG TAB PO SCH (10:29)
[2017-07-03] MEDS: FAMOTIDINE 20 MG TAB PO SCH (10:29)
[2017-07-03] MEDS: OLANZapine 5 MG TAB PO SCH (10:29)
[2017-07-03] MEDS: SEVELAMER 800 MG TAB PO SCH (12:18)
[2017-07-03] MEDS: cloNIDine HCL 0.1 MG TAB PO PRN ×2 (12:19→17:23)
[2017-07-03 13:05] VITALS: BP 188/110
[2017-07-03 17:20] VITALS: BP 188/110
[2017-07-03 17:24] VITALS: BP 164/97
[2017-07-03] MEDS: ZOLPIDEM TARTRATE 5 MG TAB PO SCH (21:51)
[2017-07-03] MEDS: SENNA 8.6 MG TAB PO SCH (21:51)
[2017-07-03 22:00] VITALS: BP 168/129
[2017-07-03] MEDS ORDERED: CARVEDILOL 12.5 MG TAB PO SCH (22:00)
[2017-07-04] MEDS: cloNIDine HCL 0.1 MG TAB PO PRN ×2 (00:01→12:32)
[2017-07-04] MEDS: hydrALAZINE HCL 25 MG TAB PO PRN ×2 (01:21→12:33)
[2017-07-04 05:03] VITALS: BP 178/127
[2017-07-04 05:47] LABS: Red Cell Distribution Width 17.6 % (11.8-14.3); White Blood Cell 5.2 10^3/uL (4.4-10.8)
[2017-07-04 05:49] LABS: Hematocrit 25.1 % (41.0-53.0); Hemoglobin 8.1 g/dL (13.5-17.5); Mean Corpuscular Hemoglobin 28.5 pg (28.0-32.0); Mean Corpuscular Hgb Conc. 32.4 g/dL (32.0-36.0); Platelet Count (auto) 330 10^3/uL (140-450); Red Blood Cells 2.85 10^6/uL (4.5-5.90)
[2017-07-04 05:51] LABS: Basophils % (manual) 0 (0.0-2.0); Blast Cells 0; Metamyelocytes % 0; Myelocytes % 0; Promyelocytes % 0; Reactive Lymphocytes 0
[2017-07-04] MEDS: SODIUM CHLOR 0.9% PF (SALINE LOCK) 10ML VIAL/SYR IV SCH ×3 (06:00→22:00)
[2017-07-04 06:20] LABS: BUN/Creatinine Ratio 5.1
[2017-07-04 06:29] LABS: Potassium 6.3 mmol/L (3.5-5.1)
[2017-07-04 06:30] LABS: Band Neutrophils % (manual) 1; Eosinophils % (manual) 4 (0-7); Lymphocytes % (manual) 25 (10.0-50.0); Monocytes % (manual) 9 (0-12)
[2017-07-04 08:00] VITALS: BP 191/133
[2017-07-04] MEDS: ALBUTEROL SULF 2.5 MG/0.5ML(0.5%) NEB SOLN NEB PRN ×2 (09:51→23:33)
[2017-07-04] MEDS ORDERED: LISINOPRIL 20 MG TAB PO SCH (10:00)
[2017-07-04] MEDS: NIFEdipine ER 30 MG TAB PO SCH ×2 (10:58→22:11)
[2017-07-04] MEDS: B-COMPLEX W/ C & FOLIC ACID(NEPHROVITE TAB) PO SCH (10:58)
[2017-07-04] MEDS: OLANZapine 5 MG TAB PO SCH (10:59)
[2017-07-04] MEDS: METOPROLOL TARTRATE 50 MG TAB PO SCH ×2 (10:59→22:08)
[2017-07-04] MEDS: FAMOTIDINE 20 MG TAB PO SCH (10:59)
[2017-07-04] MEDS: FERROUS SULFATE 325 MG TAB PO SCH (10:59)
[2017-07-04] MEDS: FOLIC ACID 1 MG TAB PO SCH (10:59)
[2017-07-04] MEDS: ASPirin-EC 81 mg tab PO SCH (11:00)
[2017-07-04] MEDS: SEVELAMER 800 MG TAB PO SCH (12:32)
[2017-07-04 12:45] VITALS: BP 196/50
[2017-07-04 16:55] VITALS: BP 150/100
[2017-07-04] MEDS: PRO-STAT 64 30ML PO SCH (18:00)
[2017-07-04 22:03] VITALS: BP 163/50
[2017-07-04] MEDS: ZOLPIDEM TARTRATE 5 MG TAB PO SCH (22:07)
[2017-07-04] MEDS: SENNA 8.6 MG TAB PO SCH (22:11)
[2017-07-05] MEDS: TEMAZEPAM 15 MG CAP PO PRN (01:32)
[2017-07-05 05:00] VITALS: BP 167/117
[2017-07-05] MEDS: SODIUM CHLOR 0.9% PF (SALINE LOCK) 10ML VIAL/SYR IV SCH ×2 (06:00→14:00)
[2017-07-05] MEDS: cloNIDine HCL 0.1 MG TAB PO PRN (06:14)
[2017-07-05] MEDS: hydrALAZINE HCL 25 MG TAB PO PRN (06:14)
[2017-07-05 08:00] VITALS: BP 164/94
[2017-07-05] MEDS: PRO-STAT 64 30ML PO SCH (08:00)
[2017-07-05] MEDS ORDERED: hydrALAZINE HCL 25 MG TAB PO ONE (08:15)
[2017-07-05] MEDS: ALBUTEROL SULF 2.5 MG/0.5ML(0.5%) NEB SOLN NEB PRN (08:37)
[2017-07-05 09:00] VITALS: BP 164/94
[2017-07-05 09:44] LABS: Albumin 2.4 g/dL (3.4-5.0); Bilirubin, Total 0.3 mg/dL (0.2-1.0); Calcium 9.2 mg/dL (8.5-10.1); Total Protein 8.6 g/dL (6.4-8.2)
[2017-07-05 09:52] LABS: Potassium 6.6 mmol/L (3.5-5.1)
[2017-07-05] MEDS ORDERED: HEPARIN SODIUM (PORCINE) 5000 UNITS/ML 1ML VIAL IV ONE ×2 (10:30)
[2017-07-05] MEDS ORDERED: EPOETIN ALFA 10,000 UNIT/1 ML VIAL IV ONE (10:30)
[2017-07-05] MEDS: HYDROcodone-ACET 5/325MG TAB PO PRN (12:44)
[2017-07-05 13:00] VITALS: BP 182/120
[2017-07-05] MEDS: FERROUS SULFATE 325 MG TAB PO SCH (15:02)
[2017-07-05] MEDS: SEVELAMER 800 MG TAB PO SCH (15:02)
[2017-07-05] MEDS: B-COMPLEX W/ C & FOLIC ACID(NEPHROVITE TAB) PO SCH (15:02)
[2017-07-05] MEDS: NIFEdipine ER 30 MG TAB PO SCH (15:03)
[2017-07-05] MEDS: METOPROLOL TARTRATE 50 MG TAB PO SCH (15:04)
[2017-07-05] MEDS: OLANZapine 5 MG TAB PO SCH (15:04)
[2017-07-05] MEDS: FOLIC ACID 1 MG TAB PO SCH (15:04)
[2017-07-05] MEDS: FAMOTIDINE 20 MG TAB PO SCH (15:04)
[2017-07-05] MEDS: ASPirin-EC 81 mg tab PO SCH (15:05)
== END 2017-07-05 15:20 | disposition home or self-care (01) | DRG 200 ==
LOC: ER 00:19 → TELE 00:20 → TELE-WESTW 06-30 18:45 → WEST WING 07-01 16:26
PROVIDERS: ADMIT Internal Medicine; ATTEND Internal Medicine Pulmonary Disease
PROC: 5A1D70Z Performance of Urinary Filtration, Intermittent, Less than 6 Hours Per Day (ICD-10-PCS; 2017-06-29)
PROC: 30233N1 Transfusion of Nonautologous Red Blood Cells into Peripheral Vein, Percutaneous Approach (ICD-10-PCS; 2017-06-29)
PROC: 5A1D70Z Performance of Urinary Filtration, Intermittent, Less than 6 Hours Per Day (ICD-10-PCS; 2017-07-03)
PROC: 5A1D70Z Performance of Urinary Filtration, Intermittent, Less than 6 Hours Per Day (ICD-10-PCS; principal; 2017-07-05)
DX: I38 Endocarditis, valve unspecified (principal); E43 Unspecified severe protein-calorie malnutrition; I13.2 Hypertensive heart and chronic kidney disease with heart failure and with stage 5 chronic kidney disease, or end stage renal disease; J90 Pleural effusion, not elsewhere classified; N18.6 End stage renal disease; I32 Pericarditis in diseases classified elsewhere; R07.9 Chest pain, unspecified; E87.5 Hyperkalemia; F20.0 Paranoid schizophrenia; I16.1 Hypertensive emergency; I50.9 Heart failure, unspecified; Z53.20 Procedure and treatment not carried out because of patient's decision for unspecified reasons; F41.9 Anxiety disorder, unspecified; D63.8 Anemia in other chronic diseases classified elsewhere; F79 Unspecified intellectual disabilities; Z99.2 Dependence on renal dialysis; Z80.42 Family history of malignant neoplasm of prostate; Z80.8 Family history of malignant neoplasm of other organs or systems; Z82.49 Family history of ischemic heart disease and other diseases of the circulatory system; Z91.19 Patient's noncompliance with other medical treatment and regimen; Z68.26 Body mass index [BMI] 26.0-26.9, adult
CPT/HCPCS: 36415; 36600; 71045; 80048; 80053; 82550; 82805; 82962; 84100; 84132; 84443; 84484; 85007; 85025; 85027; 85610; 85652; 85730; 86850; 86900; 86901; 86920; 87040; 87081; 90935; 93005; 94640; 96365; 96375; 99291; J0610; J0885; J1642; J1815; J2270; J7060

== ENCOUNTER 2017-07-30 07:54 | Inpatient (IN) | payer MEDICAID ==
[~2017-07-30] VITALS: Ht 177.8 cm; Wt 59.5 kg
[2017-07-30] MEDS ORDERED: LABETALOL HCL 5 MG/ML ML 20ML VIAL IV ONE (08:45)
[2017-07-30] MEDS ORDERED: hydrALAZINE HCL 20 MG/ML VL IV ONE (08:45)
[2017-07-30] MEDS ORDERED: SODIUM CHLORIDE 0.9% 1,000 ML IV ONE (09:01)
[2017-07-30 09:25] LABS: Basophils # (auto) 0.1 uL; Eosinophils # (auto) 0.3 uL; Eosinophils % (auto) 3.6 % (0.0-7.0); Hemoglobin 7.7 g/dL (13.5-17.5); Lymphocytes # (auto) 1.8 uL; Mean Corpuscular Hemoglobin 28.3 pg (28.0-32.0); Mean Corpuscular Hgb Conc. 32.2 g/dL (32.0-36.0); Mean Corpuscular Volume 87.9 fL (80.0-100.0); Monocytes # (auto) 1.7 uL; Monocytes % (auto) 17.5 % (0.0-12.0); Neutrophils # (auto) 5.7 uL; Neutrophils % (auto) 58.9 % (37.0-80.0); Nucleated Red Blood Cells % 0.8 %; Platelet Count (auto) 385 10^3/uL (140-450); Red Blood Cells 2.73 10^6/uL (4.5-5.90); Red Cell Distribution Width 18.6 % (11.8-14.3); White Blood Cell 9.7 10^3/uL (4.4-10.8)
[2017-07-30 09:45] LABS: Albumin 2.6 g/dL (3.4-5.0); BUN/Creatinine Ratio 5.3; Bilirubin, Total 0.2 mg/dL (0.2-1.0); Calcium 9.3 mg/dL (8.5-10.1); Magnesium 2.4 mg/dL (1.6-2.6); Potassium 5.2 mmol/L (3.5-5.1); Total Protein 8.7 g/dL (6.4-8.2)
[2017-07-30] MEDS ORDERED: FUROSEMIDE 40 MG/4 ML VIAL IV ONE (11:00)
[2017-07-30] MEDS ORDERED: ACETAMINOPHEN 500 MG TAB PO ONE (11:00)
[2017-07-30] MEDS ORDERED: LORazepam 2MG/ML-1ML VIAL IV PRN (11:30)
[2017-07-30] MEDS ORDERED: SENNA 8.6 MG TAB PO PRN (11:30)
[2017-07-30] MEDS ORDERED: hydrALAZINE HCL 25 MG TAB PO PRN (11:30)
[2017-07-30] MEDS ORDERED: NIFEdipine ER 30 MG TAB PO ONE (11:30)
[2017-07-30] MEDS ORDERED: CARVEDILOL 12.5 MG TAB PO ONE (11:30)
[2017-07-30] MEDS ORDERED: OLANZapine 5 MG TAB PO ONE (11:30)
[2017-07-30] MEDS ORDERED: ZOLPIDEM TARTRATE 5 MG TAB PO PRN (11:45)
[2017-07-30] MEDS ORDERED: LORazepam 0.5 MG TAB PO PRN (11:45)
[2017-07-30] MEDS ORDERED: ONDANSETRON HCL 4 MG/2 ML VIAL IV PRN (11:45)
[2017-07-30] MEDS ORDERED: ACETAMINOPHEN 325 MG TAB PO PRN (11:45)
[2017-07-30] MEDS ORDERED: MORPHINE SULFATE 8mg/ml INJ SDV IV PRN ×2 (11:45)
[2017-07-30] MEDS ORDERED: NITROGLYCERIN 0.4 MG SL TAB SL PRN (11:45)
[2017-07-30] MEDS ORDERED: SODIUM POLYSTYRENE SULF 15GM/60ML SUSP PO ONE (11:45)
[2017-07-30] MEDS ORDERED: ALUM & MAG HYDROX-SIMETH LIQ(MAALOX) 30 ML PO ONE (11:45)
[2017-07-30] MEDS: SEVELAMER 800 MG TAB PO SCH ×2 (12:45→18:00)
[2017-07-30] MEDS: BOOST PLUS 8 ounce PO SCH ×2 (12:45→18:00)
[2017-07-30] MEDS: ALBUTEROL SULF 2.5 MG/0.5ML(0.5%) NEB SOLN NEB SCH ×2 (13:25→19:06)
[2017-07-30 13:58] VITALS: BP 117/113
[2017-07-30] MEDS: cloNIDine HCL 0.1 MG TAB PO SCH ×2 (14:34→22:36)
[2017-07-30] MEDS: HYDROcodone-ACET 5/325MG TAB PO PRN ×2 (14:34→20:35)
[2017-07-30] MEDS: SODIUM CHLOR 0.9% PF (SALINE LOCK) 10ML VIAL/SYR IV SCH ×2 (14:34→22:37)
[2017-07-30 17:27] VITALS: BP 162/91
[2017-07-30] MEDS: FUROSEMIDE 40 MG/4 ML VIAL IV SCH (17:56)
[2017-07-30 20:14] LABS: Hematocrit 23.7 % (41.0-53.0); Hemoglobin 7.6 g/dL (13.5-17.5)
[2017-07-30 21:50] VITALS: BP 162/113
[2017-07-30] MEDS ORDERED: ATORVASTATIN 20 MG TAB PO SCH (22:00)
[2017-07-30] MEDS ORDERED: ENALAPRIL MALEATE 2.5 MG TAB PO SCH (22:00)
[2017-07-30] MEDS: CARVEDILOL 12.5 MG TAB PO SCH (22:37)
[2017-07-30] MEDS: RIFAMPIN 300 MG CAP PO SCH (22:37)
[2017-07-31] MEDS: ALBUTEROL SULF 2.5 MG/0.5ML(0.5%) NEB SOLN NEB SCH ×3 (00:48→11:01)
[2017-07-31] MEDS: cloNIDine HCL 0.1 MG TAB PO PRN ×2 (00:53→12:08)
[2017-07-31] MEDS: NITROGLYCERIN 0.4 MG SL TAB SL PRN ×2 (01:37→01:57)
[2017-07-31 04:49] VITALS: BP 148/94
[2017-07-31] MEDS: HYDROcodone-ACET 5/325MG TAB PO PRN ×2 (05:08→10:28)
[2017-07-31 06:00] LABS: Basophils # (auto) 0.1 uL; Basophils % (auto) 1.3 % (0.0-2.0); Eosinophils # (auto) 0.4 uL; Eosinophils % (auto) 5.9 % (0.0-7.0); Hematocrit 23.1 % (41.0-53.0); Hemoglobin 7.4 g/dL (13.5-17.5); Lymphocytes # (auto) 1.3 uL; Lymphocytes % (auto) 19.3 % (10.0-50.0); Mean Corpuscular Hemoglobin 28.4 pg (28.0-32.0); Mean Corpuscular Hgb Conc. 32.1 g/dL (32.0-36.0); Mean Corpuscular Volume 88.4 fL (80.0-100.0); Monocytes # (auto) 1.1 uL; Monocytes % (auto) 15.7 % (0.0-12.0); Neutrophils % (auto) 57.8 % (37.0-80.0); Nucleated Red Blood Cells % 0.2 %; Platelet Count (auto) 371 10^3/uL (140-450); Red Blood Cells 2.61 10^6/uL (4.5-5.90); White Blood Cell 6.9 10^3/uL (4.4-10.8)
[2017-07-31] MEDS: SODIUM CHLOR 0.9% PF (SALINE LOCK) 10ML VIAL/SYR IV SCH ×2 (06:00→14:00)
[2017-07-31 06:20] LABS: % Iron Saturation 15.4 % (20-55)
[2017-07-31] MEDS: FUROSEMIDE 40 MG/4 ML VIAL IV SCH (06:30)
[2017-07-31] MEDS: cloNIDine HCL 0.1 MG TAB PO SCH ×2 (06:30→14:00)
[2017-07-31 06:38] LABS: Albumin 2.3 g/dL (3.4-5.0); BUN/Creatinine Ratio 5.2; Bilirubin, Total 0.3 mg/dL (0.2-1.0); Calcium 9.3 mg/dL (8.5-10.1); Magnesium 2.5 mg/dL (1.6-2.6); Phosphorus 5.2 mg/dL (2.5-4.90); Total Protein 7.8 g/dL (6.4-8.2)
[2017-07-31 07:01] LABS: Potassium 5.5 mmol/L (3.5-5.1)
[2017-07-31] MEDS ORDERED: EPOETIN ALFA 10,000 UNIT/1 ML VIAL IV ONE (08:00)
[2017-07-31] MEDS: BOOST PLUS 8 ounce PO SCH ×2 (08:00→12:00)
[2017-07-31] MEDS: SEVELAMER 800 MG TAB PO SCH ×2 (08:07→12:00)
[2017-07-31 08:27] VITALS: BP 168/114
[2017-07-31] MEDS ORDERED: OLANZapine 5 MG TAB PO SCH (10:00)
[2017-07-31] MEDS ORDERED: NIFEdipine ER 30 MG TAB PO SCH (10:00)
[2017-07-31] MEDS ORDERED: B-COMPLEX W/ C & FOLIC ACID(NEPHROVITE TAB) PO SCH (10:00)
[2017-07-31] MEDS ORDERED: DOCUSATE SOD 100 MG CAP PO SCH (10:00)
[2017-07-31] MEDS ORDERED: CLOPIDOGREL BISULFATE 75 MG TAB PO SCH (10:00)
[2017-07-31] MEDS ORDERED: FOLIC ACID 1 MG TAB PO SCH (10:00)
[2017-07-31] MEDS ORDERED: ASPirin-EC 81 mg tab PO SCH (10:00)
[2017-07-31] MEDS ORDERED: FERROUS SULFATE 325 MG TAB PO SCH (10:00)
[2017-07-31] MEDS: CARVEDILOL 12.5 MG TAB PO SCH (10:25)
[2017-07-31] MEDS: RIFAMPIN 300 MG CAP PO SCH (10:28)
[2017-07-31 13:18] VITALS: BP 152/111
[2017-07-31 14:23] VITALS: BP 174/127
== END 2017-07-31 14:43 | disposition home or self-care (01) | DRG 194 ==
LOC: ER 07:54 → EDBD 07:54 → TELE 07:55 → TELE-CENTR 13:17
PROVIDERS: ADMIT Internal Medicine; ATTEND Internal Medicine
PROC: 5A1D70Z Performance of Urinary Filtration, Intermittent, Less than 6 Hours Per Day (ICD-10-PCS; principal; 2017-07-31)
DX: I13.2 Hypertensive heart and chronic kidney disease with heart failure and with stage 5 chronic kidney disease, or end stage renal disease (principal); E43 Unspecified severe protein-calorie malnutrition; N18.6 End stage renal disease; N25.81 Secondary hyperparathyroidism of renal origin; I50.9 Heart failure, unspecified; E87.1 Hypo-osmolality and hyponatremia; E87.5 Hyperkalemia; I16.0 Hypertensive urgency; F20.9 Schizophrenia, unspecified; E87.70 Fluid overload, unspecified; F41.9 Anxiety disorder, unspecified; G40.909 Epilepsy, unspecified, not intractable, without status epilepticus; Z99.2 Dependence on renal dialysis; D63.1 Anemia in chronic kidney disease; Z68.1 Body mass index [BMI] 19.9 or less, adult; Z80.42 Family history of malignant neoplasm of prostate; Z80.8 Family history of malignant neoplasm of other organs or systems; Z82.49 Family history of ischemic heart disease and other diseases of the circulatory system; Z83.3 Family history of diabetes mellitus; Z91.14 Patient's other noncompliance with medication regimen
CPT/HCPCS: 36415; 71046; 80053; 80061; 83540; 83550; 83735; 83880; 83970; 84100; 84443; 84484; 85014; 85018; 85025; 87081; 90935; 93005; 94640; 94761; 96374; 96375; J0885

== ENCOUNTER 2017-09-25 04:55 | Inpatient (IN) | payer MEDICAID ==
[~2017-09-25] VITALS: Ht 179.1 cm; Wt 80.4 kg
[2017-09-25] MEDS ORDERED: cloNIDine HCL 0.1 MG TAB ONE (05:10)
[2017-09-25] MEDS ORDERED: cloNIDine HCL 0.1 MG TAB PO ONE (05:15)
[2017-09-25 07:30] LABS: Hemoglobin 7.9 g/dL (13.5-17.5)
[2017-09-25 07:32] LABS: Hematocrit 24.6 % (41.0-53.0); Mean Corpuscular Hemoglobin 28.5 pg (28.0-32.0); Mean Corpuscular Hgb Conc. 32.3 g/dL (32.0-36.0); Mean Corpuscular Volume 88.3 fL (80.0-100.0); Platelet Count (auto) 393 10^3/uL (140-450); Red Blood Cells 2.78 10^6/uL (4.5-5.90); Red Cell Distribution Width 19.2 % (11.8-14.3)
[2017-09-25 07:42] LABS: Band Neutrophils % (manual) 0; Basophils % (manual) 0 (0.0-2.0); Blast Cells 0; Metamyelocytes % 0; Myelocytes % 0; Promyelocytes % 0; Reactive Lymphocytes 0
[2017-09-25 07:46] LABS: Albumin 2.1 g/dL (3.4-5.0); Calcium 8.7 mg/dL (8.5-10.1); Potassium 4.6 mmol/L (3.5-5.1)
[2017-09-25 07:49] LABS: BUN/Creatinine Ratio 8.1
[2017-09-25 07:54] LABS: Bilirubin, Total 0.2 mg/dL (0.2-1.0); Total Protein 7.3 g/dL (6.4-8.2)
[2017-09-25 08:33] LABS: Eosinophils % (manual) 3 (0-7); Lymphocytes % (manual) 27 (10.0-50.0); Monocytes % (manual) 21 (0-12)
[2017-09-25] MEDS ORDERED: LORazepam 2MG/ML-1ML VIAL IV PRN (10:15)
[2017-09-25] MEDS ORDERED: FERROUS SULFATE 325 MG TAB PO ONE (10:30)
[2017-09-25] MEDS ORDERED: FUROSEMIDE 40 MG/4 ML VIAL IV ONE (10:30)
[2017-09-25] MEDS ORDERED: RIFAMPIN 300 MG CAP PO ONE (10:30)
[2017-09-25] MEDS ORDERED: ASPirin-EC 81 mg tab PO ONE (10:30)
[2017-09-25] MEDS ORDERED: B-COMPLEX W/ C & FOLIC ACID(NEPHROVITE TAB) PO ONE (10:30)
[2017-09-25] MEDS ORDERED: FOLIC ACID 1 MG TAB PO ONE (10:30)
[2017-09-25] MEDS ORDERED: SENNA 8.6 MG TAB PO PRN (10:30)
[2017-09-25] MEDS ORDERED: ENOXAPARIN SOD 80 MG/0.8ML SYRINGE SC ONE (10:30)
[2017-09-25] MEDS ORDERED: OLANZapine 5 MG TAB PO ONE (10:30)
[2017-09-25] MEDS ORDERED: hydrALAZINE HCL 25 MG TAB PO PRN (10:30)
[2017-09-25] MEDS ORDERED: ACETAMINOPHEN 325 MG TAB PO PRN (10:45)
[2017-09-25] MEDS ORDERED: DOCUSATE SOD 100 MG CAP PO PRN (10:45)
[2017-09-25] MEDS ORDERED: TEMAZEPAM 15 MG CAP PO PRN (10:45)
[2017-09-25] MEDS ORDERED: NIFEdipine ER 30 MG TAB PO ONE ×2 (10:45→11:15)
[2017-09-25] MEDS ORDERED: NITROGLYCERIN 0.4 MG SL TAB SL PRN (10:45)
[2017-09-25] MEDS ORDERED: DEXTROSE (50%) 50ML SYRG IV PRN (11:15)
[2017-09-25] MEDS: InsuLIN REG 1unit/0.01ml Soln (100units/ml) SC SCH ×3 (11:30→20:57)
[2017-09-25] MEDS: ACCU-CHEK COMFORT CURVE STRIP VI SCH ×3 (11:38→20:57)
[2017-09-25] MEDS: Glucerna Carbsteady SHAKE Vanilla 8oz PO SCH ×3 (12:00→21:01)
[2017-09-25] MEDS: SEVELAMER 800 MG TAB PO SCH ×2 (12:07→18:19)
[2017-09-25] MEDS: ALBUTEROL SULF 2.5 MG/0.5ML(0.5%) NEB SOLN NEB SCH ×2 (12:15→17:45)
[2017-09-25] MEDS: SODIUM CHLOR 0.9% PF (SALINE LOCK) 10ML VIAL/SYR IV SCH ×2 (13:25→20:52)
[2017-09-25] MEDS: cloNIDine HCL 0.1 MG TAB PO SCH ×2 (14:29→21:12)
[2017-09-25 15:34] VITALS: BP 185/129
[2017-09-25] MEDS: HYDROcodone-ACET 5/325MG TAB PO PRN (16:30)
[2017-09-25] MEDS: RIFAMPIN 300 MG CAP PO SCH ×2 (21:12→21:58)
[2017-09-25] MEDS: CARVEDILOL 12.5 MG TAB PO SCH (21:12)
[2017-09-25] MEDS: cloNIDine HCL 0.1 MG TAB PO PRN (22:05)
[2017-09-26 00:45] VITALS: BP 161/115
[2017-09-26] MEDS: cloNIDine HCL 0.1 MG TAB PO PRN ×3 (01:03→18:21)
[2017-09-26] MEDS: HYDROcodone-ACET 5/325MG TAB PO PRN ×2 (01:03→23:20)
[2017-09-26 01:58] VITALS: BP 161/115
[2017-09-26 05:14] VITALS: BP 144/98
[2017-09-26] MEDS: SODIUM CHLOR 0.9% PF (SALINE LOCK) 10ML VIAL/SYR IV SCH ×3 (05:55→22:24)
[2017-09-26] MEDS: cloNIDine HCL 0.1 MG TAB PO SCH ×4 (05:55→21:15)
[2017-09-26] MEDS: Glucerna Carbsteady SHAKE Vanilla 8oz PO SCH ×4 (05:56→21:15)
[2017-09-26] MEDS: MORPHINE SULF INJ 2 MG/ML SYRINGE 1ML IV PRN ×4 (05:57→20:26)
[2017-09-26] MEDS: InsuLIN REG 1unit/0.01ml Soln (100units/ml) SC SCH ×4 (06:18→22:00)
[2017-09-26] MEDS: ACCU-CHEK COMFORT CURVE STRIP VI SCH ×4 (06:18→22:24)
[2017-09-26 06:32] LABS: Hemoglobin 7.6 g/dL (13.5-17.5)
[2017-09-26 06:34] LABS: Mean Corpuscular Hemoglobin 28.4 pg (28.0-32.0); Mean Corpuscular Hgb Conc. 31.8 g/dL (32.0-36.0); Mean Corpuscular Volume 89.5 fL (80.0-100.0); Platelet Count (auto) 387 10^3/uL (140-450); Red Blood Cells 2.68 10^6/uL (4.5-5.90); Red Cell Distribution Width 19.2 % (11.8-14.3); White Blood Cell 5.5 10^3/uL (4.4-10.8)
[2017-09-26] MEDS: ALBUTEROL SULF 2.5 MG/0.5ML(0.5%) NEB SOLN NEB SCH ×5 (06:45→23:37)
[2017-09-26 06:48] LABS: Band Neutrophils % (manual) 0; Basophils % (manual) 0 (0.0-2.0); Blast Cells 0; Metamyelocytes % 0; Myelocytes % 0; Promyelocytes % 0; Reactive Lymphocytes 0
[2017-09-26 06:53] LABS: Albumin 2.1 g/dL (3.4-5.0); BUN/Creatinine Ratio 8.7; Bilirubin, Total 0.3 mg/dL (0.2-1.0); Calcium 8.4 mg/dL (8.5-10.1); Total Protein 7.3 g/dL (6.4-8.2)
[2017-09-26 07:25] LABS: Potassium 6.1 mmol/L (3.5-5.1)
[2017-09-26] MEDS: SEVELAMER 800 MG TAB PO SCH ×3 (07:54→18:14)
[2017-09-26 08:14] LABS: Eosinophils % (manual) 6 (0-7); Lymphocytes % (manual) 30 (10.0-50.0); Monocytes % (manual) 14 (0-12)
[2017-09-26 09:00] VITALS: BP_SYST 157; BP_SYST 160; BP_DIAS 103; BP_DIAS 98
[2017-09-26] MEDS: FUROSEMIDE 40 MG/4 ML VIAL IV SCH (10:00)
[2017-09-26] MEDS ORDERED: NIFEdipine ER 30 MG TAB PO SCH (10:00)
[2017-09-26] MEDS: CARVEDILOL 12.5 MG TAB PO SCH ×2 (10:00→21:14)
[2017-09-26] MEDS ORDERED: SODIUM CHL 0.9% 1000 ML BAG XX ONE (10:30)
[2017-09-26] MEDS ORDERED: EPOETIN ALFA 10,000 UNIT/1 ML VIAL IV ONE (10:30)
[2017-09-26] MEDS: OLANZapine 5 MG TAB PO SCH (10:59)
[2017-09-26] MEDS: FERROUS SULFATE 325 MG TAB PO SCH (10:59)
[2017-09-26] MEDS: ASPirin-EC 81 mg tab PO SCH (10:59)
[2017-09-26] MEDS: B-COMPLEX W/ C & FOLIC ACID(NEPHROVITE TAB) PO SCH (10:59)
[2017-09-26] MEDS: MULTIPLE VITAMIN TAB PO SCH (11:00)
[2017-09-26] MEDS: FOLIC ACID 1 MG TAB PO SCH (11:00)
[2017-09-26 17:00] VITALS: BP 178/124
[2017-09-26] MEDS: ONDANSETRON HCL 4 MG/2 ML VIAL IV PRN (18:13)
[2017-09-26 21:51] VITALS: BP 170/118
[2017-09-27] MEDS: MORPHINE SULF INJ 2 MG/ML SYRINGE 1ML IV PRN ×3 (03:12→13:01)
[2017-09-27] MEDS: ONDANSETRON HCL 4 MG/2 ML VIAL IV PRN (04:43)
[2017-09-27 05:00] VITALS: BP 162/109
[2017-09-27] MEDS: cloNIDine HCL 0.1 MG TAB PO SCH ×2 (05:24→14:00)
[2017-09-27] MEDS: Glucerna Carbsteady SHAKE Vanilla 8oz PO SCH ×2 (05:25→12:00)
[2017-09-27 05:51] LABS: Hemoglobin 8.3 g/dL (13.5-17.5); Red Blood Cells 2.91 10^6/uL (4.5-5.90)
[2017-09-27] MEDS: HYDROcodone-ACET 5/325MG TAB PO PRN (05:51)
[2017-09-27] MEDS: ALBUTEROL SULF 2.5 MG/0.5ML(0.5%) NEB SOLN NEB SCH ×2 (06:00→12:00)
[2017-09-27 06:01] LABS: Hematocrit 25.9 % (41.0-53.0); Mean Corpuscular Hemoglobin 28.5 pg (28.0-32.0); Mean Corpuscular Hgb Conc. 32.1 g/dL (32.0-36.0); Platelet Count (auto) 399 10^3/uL (140-450); Red Cell Distribution Width 19.3 % (11.8-14.3)
[2017-09-27 06:15] LABS: BUN/Creatinine Ratio 7.9; Blast Cells 0; Calcium 8.6 mg/dL (8.5-10.1); Metamyelocytes % 0; Myelocytes % 0; Potassium 5.4 mmol/L (3.5-5.1); Promyelocytes % 0; Reactive Lymphocytes 0
[2017-09-27] MEDS: SODIUM CHLOR 0.9% PF (SALINE LOCK) 10ML VIAL/SYR IV SCH ×2 (06:22→14:00)
[2017-09-27] MEDS: InsuLIN REG 1unit/0.01ml Soln (100units/ml) SC SCH ×2 (06:23→11:30)
[2017-09-27] MEDS: ACCU-CHEK COMFORT CURVE STRIP VI SCH ×2 (06:23→11:54)
[2017-09-27 06:52] LABS: Band Neutrophils % (manual) 1; Basophils % (manual) 1 (0.0-2.0); Eosinophils % (manual) 4 (0-7); Lymphocytes % (manual) 31 (10.0-50.0); Monocytes % (manual) 16 (0-12)
[2017-09-27] MEDS: SEVELAMER 800 MG TAB PO SCH ×2 (07:53→13:01)
[2017-09-27 08:30] VITALS: BP 149/95
[2017-09-27] MEDS ORDERED: SODIUM POLYSTYRENE SULF 15GM/60ML SUSP PO ONE (09:30)
[2017-09-27] MEDS: B-COMPLEX W/ C & FOLIC ACID(NEPHROVITE TAB) PO SCH (10:00)
[2017-09-27] MEDS: OLANZapine 5 MG TAB PO SCH (10:00)
[2017-09-27] MEDS: MULTIPLE VITAMIN TAB PO SCH (10:00)
[2017-09-27] MEDS: FUROSEMIDE 40 MG/4 ML VIAL IV SCH (10:00)
[2017-09-27] MEDS: FOLIC ACID 1 MG TAB PO SCH (10:00)
[2017-09-27] MEDS: FERROUS SULFATE 325 MG TAB PO SCH (10:00)
[2017-09-27] MEDS: CARVEDILOL 12.5 MG TAB PO SCH (10:00)
[2017-09-27] MEDS: ASPirin-EC 81 mg tab PO SCH (10:00)
[2017-09-27] MEDS ORDERED: NIFEdipine ER 30 MG TAB PO SCH (10:00)
[2017-09-27] MEDS ORDERED: SODIUM CHL 0.9% 1000 ML BAG XX ONE (10:30)
[2017-09-27] MEDS ORDERED: EPOETIN ALFA 10,000 UNIT/1 ML VIAL IV ONE (10:30)
[2017-09-27 12:58] VITALS: BP 158/101
== END 2017-09-27 13:47 | disposition home or self-care (01) | DRG 194 ==
LOC: ER 04:55 → EDBD 04:55 → TELE 04:56 → TELE-WESTW 09-26 00:45
PROVIDERS: ADMIT Internal Medicine; ATTEND Internal Medicine
PROC: 5A1D70Z Performance of Urinary Filtration, Intermittent, Less than 6 Hours Per Day (ICD-10-PCS; principal; 2017-09-26)
DX: I13.2 Hypertensive heart and chronic kidney disease with heart failure and with stage 5 chronic kidney disease, or end stage renal disease (principal); E43 Unspecified severe protein-calorie malnutrition; N18.6 End stage renal disease; M94.0 Chondrocostal junction syndrome [Tietze]; I50.31 Acute diastolic (congestive) heart failure; E87.70 Fluid overload, unspecified; D63.8 Anemia in other chronic diseases classified elsewhere; E87.5 Hyperkalemia; I16.0 Hypertensive urgency; G40.909 Epilepsy, unspecified, not intractable, without status epilepticus; I24.9 Acute ischemic heart disease, unspecified; F20.9 Schizophrenia, unspecified; F41.9 Anxiety disorder, unspecified; Z99.2 Dependence on renal dialysis; Z91.15 Patient's noncompliance with renal dialysis; Z82.49 Family history of ischemic heart disease and other diseases of the circulatory system; Z88.8 Allergy status to other drugs, medicaments and biological substances; Z91.11 Patient's noncompliance with dietary regimen; Z68.25 Body mass index [BMI] 25.0-25.9, adult
CPT/HCPCS: 36415; 71045; 80048; 80053; 82962; 83036; 84484; 85007; 85027; 87081; 90935; 93005; 94640; 96374; J0885; J1642; J2405